=== PATIENT | female | born 1945 | race Caucasian/White ===

== ENCOUNTER → 2017-06-30 | Outpatient (CLI) | payer OTHER ==
[~2017-06-30] MED LIST: ACETAMINOPHEN325 M1 PO; AMIODARONE HCL200 MG PO; AMLODIPINE BESYL5 MG PO; ASPIR 8181 MG PO; ASPIRIN CHEW81 MG PO; CALTRATE 600 W1 EACH PO; CALTRATE-600 W1 EACH PO; CEFTIN250 MG; COUMADIN2.5 MG PO; COUMADIN5 MG PO; DIPHENOXYLATE-1 EACH PO; FAMOTIDINE20 MG PO; FUROSEMIDE40 MG PO; KEFLEX500 MG PO; LABETALOL HCL100 MG PO; LASIX40 MG PO; LEVOTHYROXINE88 MCG PO; LIDOCAINE HC28.35 GM TOP; LIDOCAINE-PRILO30 GM; LINZESS PO; LISINOPRIL2.5 MG PO; LOPRESSOR25 MG PO; METOPROLOL TART25 MG PO; METOPROLOL TART50 MG PO; NEXIUM40 MG PO; NORVASC5 MG PO; PARICALCITOL PO; PROCHLORPERAZINE5 MG PO; RENA-VITE RX T1 EACH PO; RENAGEL800 MG PO; RENVELA0.8 GM PO; SENNA-S TABLET1 EA PO; SENSIPAR30 MG PO; SODIUM BIC; SODIUM BIC PO; SODIUM BICARBO650 MG PO; SPIRIVA18 MCG INH; SYNTHROID100 MCG PO; SYNTHROID125 MCG PO; ULTRAM50 MG PO; VITAMIN D5000 UNIT PO; WARFARIN SODIUM5 MG PO; Z LABETALOL HCL PO; Z.0.ASPIRIN CHEW81 M; Z.0.IRON18 MG PO; Z.0.LASIX40 MG PO; Z.0.LEVOTHYROXINE125 PO; Z.0.PLAVIX75 MG PO; Z.0.RENVELA800 MG PO; Z.1.VITAMIN D400 UNI PO; ZOLOFT50 MG PO; [UNRECOGNIZED DRUG - OTHER] PO; [UNRECOGNIZED DRUG - OTHER] PO
[2017-06-30 15:49] LABS: ANION GAP 19.9 mmol/L (8-16); CALCIUM 10.2 mg/dL (8.4-10.2); CREATININE, SERUM 5.53 mg/dL (0.57-1.11); POTASSIUM 3.9 mmol/L (3.5-5.1)
[2017-06-30 15:56] LABS: BASOPHILS # (AUTO) 0.1 (0.0-0.1); BASOPHILS % 0.9 % (0.0-1.0); EOSINOPHILS # (AUTO) 0.4 (0.0-0.4); EOSINOPHILS % 4.3 % (0.0-6.0); HEMATOCRIT 30.7 % (34.2-44.1); HEMOGLOBIN 9.7 g/dL (12.0-16.0); LYMPHOCYTES # (AUTO) 0.5 (1.0-3.2); LYMPHOCYTES % 5.7 % (18.0-39.1); MEAN CORPUSCULAR HEMOGLOBIN 32.8 pg (28-32); MEAN CORPUSCULAR HGB CONC 31.6 g/dL (31-35); MEAN CORPUSCULAR VOLUME 103.7 fL (81-99); MONOCYTES # (AUTO) 1.2 (0.2-0.8); NEUTROPHILS % 73.4 % (38.7-80.0); PLATELET COUNT 221 x10e3/uL (140-360); RED BLOOD COUNT 2.96 x10e6/uL (3.6-5.1)
== END ==
LOC: NPA 10:00
PROVIDERS: ATTEND Internal Medicine Pulmonary Disease
DX: Z02.89 Encounter for other administrative examinations (principal)
CPT/HCPCS: 36415; 80048; 85025

== ENCOUNTER → 2017-08-27 | Day surgery (SDC) | payer MEDICARE, BC ==
[2017-08-26 14:25] LABS: BASOPHILS % 0.3 % (0.0-1.0); EOSINOPHILS # (AUTO) 0.1 (0.0-0.4); EOSINOPHILS % 1.3 % (0.0-6.0); HEMATOCRIT 29.6 % (34.2-44.1); HEMOGLOBIN 9.2 g/dL (12.0-16.0); LYMPHOCYTES # (AUTO) 0.3 (1.0-3.2); LYMPHOCYTES % 3.2 % (18.0-39.1); MEAN CORPUSCULAR HEMOGLOBIN 31.7 pg (28-32); MEAN CORPUSCULAR HGB CONC 31.1 g/dL (31-35); MEAN CORPUSCULAR VOLUME 102.1 fL (81-99); MONOCYTES % 11.9 % (4.4-11.3); NEUTROPHILS # (AUTO) 7.1 (2.1-6.9); PLATELET COUNT 185 x10e3/uL (140-360); RED CELL DISTRIBUTION WIDTH 18.3 % (11.7-14.4)
[2017-08-26 16:04] LABS: BAND NEUTROPHILS % (MANUAL) 2 %; EOSINOPHILS % (MANUAL) 1 % (0-7); LYMPHOCYTES % (MANUAL) 3 % (19-48); MONOCYTES % (MANUAL) 9 % (3.4-9.0); NEUTROPHILS % (MANUAL) 85 % (40-74)
[2017-08-26 16:06] LABS: ANISOCYTOSIS MODERATE; MICROCYTOSIS MODERATE; PLATELET ESTIMATE ADEQUATE; PLATELET MORPHOLOGY COMMENT FEW LARGE; POIKILOCYTOSIS SLIGHT; RBC MORPHOLOGY COMMENT ABNORMAL
[~2017-08-27] MED LIST changes: +ABILIFY5 MG PO; +ASPIRIN EC81 MG PO; +ATORVASTATIN CA10 MG PO; +BENZONATATE100 MG PO; +CEPHALEXIN250 MG PO; +IPRATROPIU0.2 MG/1 M NEB; +KEFLEX500 MG; +KETAMINE HCL INJ 50 MG/ML 10 ML VIAL ONE; +LIDOCAINE HCL 2% LOCAL INJ 5 ML SDV VIAL INJ ONE; +MELATONIN3 MG PO; +PANTOPRAZOLE SO40 MG PO; +PREDNISONE10 MG PO; +PROPOFOL IV EMULSION 10 MG/ML 50 ML VIAL ONE; +RENVELA0.8 GM; +SENNOSIDES8.6 MG; +SODIUM CHLORIDE 0.9% 500ML 500 ML ONE; +TYLENOL
--- OUTSIDE RECORDS SUMMARY | 2017-08-27 10:47 | XMS REPORT ---
Author Author [facility] Address Unknown Phone Unavailable Care Team Providers Care Watch Leader Name Role Phone FRANTZ LYLES Unavailable Unavailable ONEIL MCCAULEY Unavailable Unavailable BLAKE CALDERON Unavailable Unavailable JORGE NIETO Unavailable Unavailable NAIMA SORTO Unavailable Unavailable ARVIND AGARWAL Unavailable Unavailable SABINA TRAN Unavailable Unavailable Problems This patient has no known problems. Allergies, Adverse Reactions, Alerts This patient has no known allergies or adverse reactions. Medications This patient has no known medications. Results Test Description Test Time Test Comments Text Results Atomic Results Result Comments BASIC METABOLIC PANEL 2017-05-21 05:13:00 SODIUM (BEAKER) (test fcqx=126) 139 meq/L 136-145 POTASSIUM (BEAKER) (test zfor=680) 4.1 meq/L 3.5-5.1 CHLORIDE (BEAKER) (test mwnm=296) 102 meq/L 98-107 CO2 (BEAKER) (test qlsh=884) 27 meq/L 22-29 BLOOD UREA NITROGEN (BEAKER) (test mepw=160) 27 mg/dL 7-21 CREATININE (BEAKER) (test qhed=109) 3.52 mg/dL 0.57-1.25 GLUCOSE RANDOM (BEAKER) (test uenn=501) 96 mg/dL 70-105 CALCIUM (BEAKER) (test ryee=699) 8.0 mg/dL 8.4-10.2 EGFR (BEAKER) (test kaip=4694) 13 mL/min/1.73 sq m ESTIMATED GFR IS NOT ACCURATE CREATININE CLEARANCE IN PREDICTING GLOMERULAR FILTRATION RATE. ESTIMATED GFR IS NOT APPLICABLE FOR DIALYSIS PATIENTS. B-TYPE NATRIURETIC FACTOR (BNP)2017-05-21 05:05:00* Test Item Value Reference Range Comments B-TYPE NATRIURETIC PEPTIDE (BEAKER) (test svko=600) 4961 pg/mL 0-100 PROTHROMBIN TIME/[id number] 04:51:00* Test Item Value Reference Range Comments PROTIME (BEAKER) (test iqlo=249) 35.2 seconds 11.7-14.7 INR (BEAKER) (test vnto=271) 3.5 <=5.9 RECOMMENDED COUMADIN/WARFARIN INR THERAPY RANGESSTANDARD DOSE: 2.0 - 3.0 Includes: PROPHYLAXIS for venous thrombosis, systemic embolization; TREATMENT for venous thrombosis and/or pulmonary embolus.HIGH RISK: Target INR is 2.5-3.5 for patients with mechanical heart valves.CBC (HEMOGRAM ONLY)2017-05-21 04:48:00 * Test Item Value Reference Range Comments WHITE BLOOD CELL COUNT (BEAKER) (test evci=134) 6.5 K/ L 3.5-10.5 RED BLOOD CELL COUNT (BEAKER) (test awxi=233) 2.28 M/ L 3.93-5.22 HEMOGLOBIN (BEAKER) (test cyqc=619) 8.1 GM/DL 11.2-15.7 HEMATOCRIT (BEAKER) (test zpyg=249) 26.0 % 34.1-44.9 MEAN CORPUSCULAR VOLUME (BEAKER) (test jtwg=969) 114.0 fL 79.4-94.8 MEAN CORPUSCULAR HEMOGLOBIN (BEAKER) (test jzsh=556) 35.5 pg 25.6-32.2 MEAN CORPUSCULAR HEMOGLOBIN CONC (BEAKER) (test taqx=634) 31.2 GM/DL 32.2- 35.5 RED CELL DISTRIBUTION WIDTH (BEAKER) (test nguu=670) 18.2 % 11.7-14.4 PLATELET COUNT (BEAKER) (test ivek=036) 188 K/CU MM 150-450 MEAN PLATELET VOLUME (BEAKER) (test przm=544) 10.5 fL 9.4-12.3 NUCLEATED RED BLOOD CELLS (BEAKER) (test klxs=756) 0 /100 WBC 0-0 BASIC METABOLIC [id number] 06:53:00* Test Item Value Reference Range Comments SODIUM (BEAKER) (test eovl=318) 143 meq/L 136-145 POTASSIUM (BEAKER) (test lepd=415) 4.1 meq/L 3.5-5.1 CHLORIDE (BEAKER) (test llwn=687) 102 meq/L 98-107 CO2 (BEAKER) (test qzjt=609) 26 meq/L 22-29 BLOOD UREA NITROGEN (BEAKER) (test jqcl=242) 47 mg/dL 7-21 CREATININE (BEAKER) (test yjxv=284) 5.39 mg/dL 0.57-1.25 GLUCOSE RANDOM (BEAKER) (test efcg=153) 116 mg/dL 70-105 CALCIUM (BEAKER) (test hezq=126) 8.3 mg/dL 8.4-10.2 EGFR (BEAKER) (test hwmc=6319) 8 mL/min/1.73 sq m ESTIMATED GFR IS NOT ACCURATE CREATININE CLEARANCE IN PREDICTING GLOMERULAR FILTRATION RATE. ESTIMATED GFR IS NOT APPLICABLE FOR DIALYSIS PATIENTS. [id number] 06:52:00* Test Item Value Reference Range Comments PHOSPHORUS (BEAKER) (test ssyi=231) 4.8 mg/dL 2.3-4.7 [id number] 06:52:00* Test Item Value Reference Range Comments MAGNESIUM (BEAKER) (test bvmb=319) 1.7 mg/dL 1.6-2.6 CBC W/PLT COUNT & AUTO [id number] 06:06:00* Test Item Value Reference Range Comments WHITE BLOOD CELL COUNT (BEAKER) (test oret=276) 7.3 K/ L 3.5-10.5 RED BLOOD CELL COUNT (BEAKER) (test peas=038) 2.53 M/ L 3.93-5.22 HEMOGLOBIN (BEAKER) (test iwsz=027) 9.0 GM/DL 11.2-15.7 HEMATOCRIT (BEAKER) (test rxli=131) 28.3 % 34.1-44.9 MEAN CORPUSCULAR VOLUME (BEAKER) (test zeuk=172) 111.9 fL 79.4-94.8 MEAN CORPUSCULAR HEMOGLOBIN (BEAKER) (test tnid=807) 35.6 pg 25.6-32.2 MEAN CORPUSCULAR HEMOGLOBIN CONC (BEAKER) (test cjqa=228) 31.8 GM/DL 32.2- 35.5 RED CELL DISTRIBUTION WIDTH (BEAKER) (test hsis=179) 17.9 % 11.7-14.4 PLATELET COUNT (BEAKER) (test pbpr=398) 213 K/CU MM 150-450 MEAN PLATELET VOLUME (BEAKER) (test mheg=725) 10.9 fL 9.4-12.3 NUCLEATED RED BLOOD CELLS (BEAKER) (test oxet=097) 0 /100 WBC 0-0 NEUTROPHILS RELATIVE PERCENT (BEAKER) (test xwuu=728) 84 % LYMPHOCYTES RELATIVE PERCENT (BEAKER) (test mzgu=735) 3 % MONOCYTES RELATIVE PERCENT (BEAKER) (test eexa=655) 11 % EOSINOPHILS RELATIVE PERCENT (BEAKER) (test nqnj=898) 2 % BASOPHILS RELATIVE PERCENT (BEAKER) (test tseh=013) 1 % NEUTROPHILS ABSOLUTE COUNT (BEAKER) (test mzml=829) 6.16 K/ L 1.56-6.13 LYMPHOCYTES ABSOLUTE COUNT (BEAKER) (test zour=177) 0.20 K/ L 1.18-3.74 MONOCYTES ABSOLUTE COUNT (BEAKER) (test blix=863) 0.77 K/ L 0.24-0.36 EOSINOPHILS ABSOLUTE COUNT (BEAKER) (test huec=945) 0.13 K/ L 0.04-0.36 BASOPHILS ABSOLUTE COUNT (BEAKER) (test oudv=687) 0.04 K/ L 0.01-0.08 IMMATURE GRANULOCYTES-RELATIVE PERCENT (BEAKER) (test ewtf=6277) 0 % 0-1 PROTHROMBIN TIME/[id number] 05:47:00* Test Item Value Reference Range Comments PROTIME (BEAKER) (test hrwc=909) 46.0 seconds 11.7-14.7 INR (BEAKER) (test anol=337) 4.9 <=5.9 RECOMMENDED COUMADIN/WARFARIN INR THERAPY RANGESSTANDARD DOSE: 2.0 - 3.0 Includes: PROPHYLAXIS for venous thrombosis, systemic embolization; TREATMENT for venous thrombosis and/or pulmonary embolus.HIGH RISK: Target INR is 2.5-3.5 for patients with mechanical heart valves.CREATINE KINASE (CK), TOTAL AND [id number] 17:17:00* Test Item Value Reference Range Comments CREATINE KINASE TOTAL (BEAKER) (test jhpz=534) 172 U/L 29-200 CREATINE KINASE-MB (BEAKER) (test nlzx=882) 6.9 ng/mL 0.0-6.6 CREATINE KINASE-MB INDEX (BEAKER) (test udpc=545) 4.0 % CK-MB Reference Range:<6.7 Normal6.7-10.0 Borderline>10.0 AbnormalRAD , CHEST, 1 VIEW, NON [id number] 13:12:00Reason for exam:->DIARRHEAReason for exam:->SHORTNESS OF BREATHFINAL REPORT TECHNIQUE: Frontal chest radiograph dated 05/19/2017. CLINICAL HISTORY: Diarrhea, shortness of breath COMPARISON STUDY: Chest radiograph dated 05/05/2017 IMPRESSION:Postsurgical changes are seen in the right hemithorax. There is a moderate right pleural effusion with compressive atelectasis. Left lung is clear. No pneumothorax. Cardiomediastinal silhouette is normal in size. No pulmonary edema. No fracture. Signed: Marvin Pham MDReport Verified Date/ Time: 05/19/2017 13:12:02 Reading Location: [facility] Radiology Reading Room C METABOLIC [id number] 13:09:00* Test Item Value Reference Range Comments SODIUM (BEAKER) (test kjoq=338) 136 meq/L 136-145 POTASSIUM (BEAKER) (test zgnv=256) 6.5 meq/L 3.5-5.1 CHLORIDE (BEAKER) (test nhby=868) 97 meq/L 98-107 CO2 (BEAKER) (test wcvz=055) 18 meq/L 22-29 BLOOD UREA NITROGEN (BEAKER) (test ytrl=101) 124 mg/dL 7-21 CREATININE (BEAKER) (test fptf=804) 8.91 mg/dL 0.57-1.25 GLUCOSE RANDOM (BEAKER) (test hvvv=173) 83 mg/dL 70-105 CALCIUM (BEAKER) (test dqiv=554) 8.4 mg/dL 8.4-10.2 EGFR (BEAKER) (test svmy=6478) 4 mL/min/1.73 sq m ESTIMATED GFR IS NOT ACCURATE CREATININE CLEARANCE IN PREDICTING GLOMERULAR FILTRATION RATE. ESTIMATED GFR IS NOT APPLICABLE FOR DIALYSIS PATIENTS. CBC W/PLT COUNT & AUTO [id number] 12:32:00* Test Item Value Reference Range Comments WHITE BLOOD CELL COUNT (BEAKER) (test gfte=870) 6.3 K/ L 3.5-10.5 RED BLOOD CELL COUNT (BEAKER) (test wuvd=749) 2.79 M/ L 3.93-5.22 HEMOGLOBIN (BEAKER) (test mvte=355) 9.9 GM/DL 11.2-15.7 HEMATOCRIT (BEAKER) (test fyox=566) 31.1 % 34.1-44.9 MEAN CORPUSCULAR VOLUME (BEAKER) (test kiuz=141) 111.5 fL 79.4-94.8 MEAN CORPUSCULAR HEMOGLOBIN (BEAKER) (test hjgb=695) 35.5 pg 25.6-32.2 MEAN CORPUSCULAR HEMOGLOBIN CONC (BEAKER) (test obbn=293) 31.8 GM/DL 32.2- 35.5 RED CELL DISTRIBUTION WIDTH (BEAKER) (test pylu=360) 17.5 % 11.7-14.4 PLATELET COUNT (BEAKER) (test ujho=635) 237 K/CU MM 150-450 MEAN PLATELET VOLUME (BEAKER) (test ltbe=496) 11.2 fL 9.4-12.3 NUCLEATED RED BLOOD CELLS (BEAKER) (test hqzq=957) 0 /100 WBC 0-0 NEUTROPHILS RELATIVE PERCENT (BEAKER) (test fhwq=572) 77 % LYMPHOCYTES RELATIVE PERCENT (BEAKER) (test kmvg=776) 7 % MONOCYTES RELATIVE PERCENT (BEAKER) (test tdst=860) 12 % EOSINOPHILS RELATIVE PERCENT (BEAKER) (test iirk=220) 2 % BASOPHILS RELATIVE PERCENT (BEAKER) (test vfaf=906) 1 % NEUTROPHILS ABSOLUTE COUNT (BEAKER) (test kwcq=014) 4.84 K/ L 1.56-6.13 LYMPHOCYTES ABSOLUTE COUNT (BEAKER) (test xsqq=527) 0.45 K/ L 1.18-3.74 MONOCYTES ABSOLUTE COUNT (BEAKER) (test cmzm=864) 0.78 K/ L 0.24-0.36 EOSINOPHILS ABSOLUTE COUNT (BEAKER) (test igaw=107) 0.13 K/ L 0.04-0.36 BASOPHILS ABSOLUTE COUNT (BEAKER) (test uioy=969) 0.07 K/ L 0.01-0.08 IMMATURE GRANULOCYTES-RELATIVE PERCENT (BEAKER) (test jsbk=3045) 1 % 0-1 B-TYPE NATRIURETIC FACTOR (BNP)2017-05-19 12:32:00* Test Item Value Reference Range Comments B-TYPE NATRIURETIC PEPTIDE (BEAKER) (test uhlp=104) 3657 pg/mL 0-100 TROPONIN [id number] 12:30:00* Test Item Value Reference Range Comments TROPONIN I (BEAKER) (test xzfb=197) 0.08 ng/mL 0.00-0.03 Troponin I (TnI) levels must be interpreted in the context of the presenting symptoms and the clinical findings. Elevated TnI levels indicate myocardial damage, but are not specific for ischemic heart disease. Elevated TnI levels are seen in patients with other cardiac conditions (including myocarditis and congestive heart failure), and slight TnI elevations occur in patients with other conditions, including sepsis, renal failure, acidosis, acute neurological disease, and persistent tachyarrhythmia.[id number] 12:28:00* Test Item Value Reference Range Comments MAGNESIUM (BEAKER) (test oivv=293) 2.1 mg/dL 1.6-2.6 B-TYPE NATRIURETIC FACTOR (BNP)2017-05-14 14:04:00* Test Item Value Reference Range Comments B-TYPE NATRIURETIC PEPTIDE (BEAKER) (test taya=593) 7156 pg/mL 0-100 BASIC METABOLIC [id number] 13:53:00* Test Item Value Reference Range Comments SODIUM (BEAKER) (test qsrw=937) 142 meq/L 136-145 POTASSIUM (BEAKER) (test trht=102) 4.8 meq/L 3.5-5.1 CHLORIDE (BEAKER) (test qvpv=237) 97 meq/L 98-107 CO2 (BEAKER) (test khkk=889) 31 meq/L 22-29 BLOOD UREA NITROGEN (BEAKER) (test mfic=187) 48 mg/dL 7-21 CREATININE (BEAKER) (test hped=674) 5.07 mg/dL 0.57-1.25 GLUCOSE RANDOM (BEAKER) (test rfxw=099) 88 mg/dL 70-105 CALCIUM (BEAKER) (test tqlu=799) 8.9 mg/dL 8.4-10.2 EGFR (BEAKER) (test szcv=6752) 8 mL/min/1.73 sq m ESTIMATED GFR IS NOT ACCURATE CREATININE CLEARANCE IN PREDICTING GLOMERULAR FILTRATION RATE. ESTIMATED GFR IS NOT APPLICABLE FOR DIALYSIS PATIENTS. PROTHROMBIN TIME/[id number] 13:41:00* Test Item Value Reference Range Comments PROTIME (BEAKER) (test gibe=113) 23.0 seconds 11.7-14.7 INR (BEAKER) (test qwsa=165) 2.0 <=5.9 RECOMMENDED COUMADIN/WARFARIN INR THERAPY RANGESSTANDARD DOSE: 2.0 - 3.0 Includes: PROPHYLAXIS for venous thrombosis, systemic embolization; TREATMENT for venous thrombosis and/or pulmonary embolus.HIGH RISK: Target INR is 2.5-3.5 for patients with mechanical heart valves.[id number] 13:39:00* Test Item Value Reference Range Comments MAGNESIUM (BEAKER) (test auah=234) 1.9 mg/dL 1.6-2.6 PROTHROMBIN TIME/[id number] 06:04:00* Test Item Value Reference Range Comments PROTIME (BEAKER) (test nmox=814) 15.6 seconds 11.7-14.7 INR (BEAKER) (test gpme=265) 1.3 <=5.9 RECOMMENDED COUMADIN/WARFARIN INR THERAPY RANGESSTANDARD DOSE: 2.0 - 3.0 Includes: PROPHYLAXIS for venous thrombosis, systemic embolization; TREATMENT for venous thrombosis and/or pulmonary embolus.HIGH RISK: Target INR is 2.5-3.5 for patients with mechanical heart valves.While on warfarin.POCT-GLUCOSE [id number] 21:15:00* Test Item Value Reference Range Comments POC-GLUCOSE METER (BEAKER) (test eodh=2506) 116 mg/dL 70-[address] [facility] [address] [facility] [address] PROTHROMBIN TIME/[id number] 05:44:00* Test Item Value Reference Range Comments PROTIME (BEAKER) (test rjuj=004) 14.9 seconds 11.7-14.7 INR (BEAKER) (test vqau=173) 1.2 <=5.9 RECOMMENDED COUMADIN/WARFARIN INR THERAPY RANGESSTANDARD DOSE: 2.0 - 3.0 Includes: PROPHYLAXIS for venous thrombosis, systemic embolization; TREATMENT for venous thrombosis and/or pulmonary embolus.HIGH RISK: Target INR is 2.5-3.5 for patients with mechanical heart valves.While on warfarin.U/S, [id number] 15:52:00Reason for exam:->right moderate pleural effusion/sob. needs IR/USG guided thoracocentesisFINAL REPORT Procedure: Ultrasound-guided right thoracentesis, 05/05/2017 HISTORY: Right pleural effusion Anesthesia: 1% lidocaine Modality: Ultrasound Approach: Right posterior chest TECHNIQUE: After obtaining written informed consent this procedure was performed without untoward effect. Ultrasound was used to scan the right chest, posteriorly. A site of maximum fluid collection was identified in the the skin overlying this site was prepped and anesthetized. A 4 Tunisian needle/catheter was inserted into the pleural space and 1.3 L of yellow fluid were removed. An x-ray was ordered. Conclusion: Ultrasound-guided right thoracentesis. Signed: Geronimo Arrieta Verified Date/Time: 05/05/2017 15 :52:47 Reading Location: [address] Ultrasound Reading Room , CHEST , 1 VIEW, NON [id number] 15:47:00Reason for exam:->Right Thoracentesis - pt in Ultrasound Should this be performed at the bedside?->YesFINAL REPORT Portable chest 05/05/2017 Since 05/03/2017, the right pleural effusion has resolved, status post thoracentesis. There is no pneumothorax. Minimal linear opacities remain in the right lung base consistent with atelectasis. The heart remains enlarged. There mild pulmonary vascular congestive changes. Aortic valvular device is suggested. There surgical clips in both axillary regions that are unchanged. No definite osseous abnormalities are defined. Signed: Geronimo Arrieta Verified Date/Time: 05/05/2017 15: 47:12 Reading Location: [address] Ultrasound Reading Room C METABOLIC [id number] 08:23:00* Test Item Value Reference Range Comments SODIUM (BEAKER) (test tdxe=894) 140 meq/L 136-145 POTASSIUM (BEAKER) (test euzp=866) 4.4 meq/L 3.5-5.1 CHLORIDE (BEAKER) (test raky=290) 102 meq/L 98-107 CO2 (BEAKER) (test jbko=571) 24 meq/L 22-29 BLOOD UREA NITROGEN (BEAKER) (test nmxy=163) 41 mg/dL 7-21 CREATININE (BEAKER) (test wdxu=247) 4.92 mg/dL 0.57-1.25 GLUCOSE RANDOM (BEAKER) (test xrug=186) 96 mg/dL 70-105 CALCIUM (BEAKER) (test xhkt=347) 8.3 mg/dL 8.4-10.2 EGFR (BEAKER) (test lriz=5788) 9 mL/min/1.73 sq m ESTIMATED GFR IS NOT ACCURATE CREATININE CLEARANCE IN PREDICTING GLOMERULAR FILTRATION RATE. ESTIMATED GFR IS NOT APPLICABLE FOR DIALYSIS PATIENTS. CBC W/PLT COUNT & AUTO [id number] 05:48:00* Test Item Value Reference Range Comments WHITE BLOOD CELL COUNT (BEAKER) (test fcet=411) 6.4 K/ L 3.5-10.5 RED BLOOD CELL COUNT (BEAKER) (test qrok=883) 3.02 M/ L 3.93-5.22 HEMOGLOBIN (BEAKER) (test noat=170) 10.8 GM/DL 11.2-15.7 HEMATOCRIT (BEAKER) (test gmfn=047) 34.0 % 34.1-44.9 MEAN CORPUSCULAR VOLUME (BEAKER) (test gwov=216) 112.6 fL 79.4-94.8 MEAN CORPUSCULAR HEMOGLOBIN (BEAKER) (test imsr=068) 35.8 pg 25.6-32.2 MEAN CORPUSCULAR HEMOGLOBIN CONC (BEAKER) (test egpb=637) 31.8 GM/DL 32.2- 35.5 RED CELL DISTRIBUTION WIDTH (BEAKER) (test wrwz=444) 19.5 % 11.7-14.4 PLATELET COUNT (BEAKER) (test upza=462) 157 K/CU MM 150-450 MEAN PLATELET VOLUME (BEAKER) (test ynmj=263) 11.2 fL 9.4-12.3 NUCLEATED RED BLOOD CELLS (BEAKER) (test shrw=688) 0 /100 WBC 0-0 NEUTROPHILS RELATIVE PERCENT (BEAKER) (test hoot=607) 74 % LYMPHOCYTES RELATIVE PERCENT (BEAKER) (test xeux=802) 6 % MONOCYTES RELATIVE PERCENT (BEAKER) (test ltif=809) 17 % EOSINOPHILS RELATIVE PERCENT (BEAKER) (test gdfu=599) 2 % BASOPHILS RELATIVE PERCENT (BEAKER) (test jcrc=684) 1 % NEUTROPHILS ABSOLUTE COUNT (BEAKER) (test awdz=247) 4.76 K/ L 1.56-6.13 LYMPHOCYTES ABSOLUTE COUNT (BEAKER) (test ryjz=652) 0.35 K/ L 1.18-3.74 MONOCYTES ABSOLUTE COUNT (BEAKER) (test qaiq=671) 1.06 K/ L 0.24-0.36 EOSINOPHILS ABSOLUTE COUNT (BEAKER) (test ogik=589) 0.12 K/ L 0.04-0.36 BASOPHILS ABSOLUTE COUNT (BEAKER) (test ugcq=371) 0.08 K/ L 0.01-0.08 IMMATURE GRANULOCYTES-RELATIVE PERCENT (BEAKER) (test iwka=0012) 1 % 0-1 PT/[id number] 05:46:00* Test Item Value Reference Range Comments PROTIME (BEAKER) (test lnmq=818) 14.8 seconds 11.7-14.7 INR (BEAKER) (test qgrk=837) 1.2 <=5.9 PARTIAL THROMBOPLASTIN TIME (BEAKER) (test hfeh=701) 35.6 seconds 22.5-36.0 RECOMMENDED COUMADIN/WARFARIN INR THERAPY RANGESSTANDARD DOSE: 2.0 - 3.0 Includes: PROPHYLAXIS for venous thrombosis, systemic embolization; TREATMENT for venous thrombosis and/or pulmonary embolus.HIGH RISK: Target INR is 2.5-3.5 for patients with mechanical heart valves.RAD, ABDOMEN/KUB, 1 VIEW [id number] 21:02:00Reason for exam:->abdominal painFINAL REPORT RAD , ABDOMEN/KUB, 1 VIEW AP CLINICAL INDICATION: abdominal pain COMPARISON: None TECHNIQUE: Single, frontal radiograph of the abdomen. FINDINGS: The bowel gas pattern is nonspecific, but nonobstructive. No soft tissue density is identified. There is a large fecal burden in the colon. Atherosclerotic calcifications are present in the regional vasculature. The regional skeleton is intact. IMPRESSION: Nonspecific, nonobstructive bowel gas pattern. Large stool burden may reflect constipation. Signed: JR Cuevas Robert MDReport Verified Date/Time: 05/04/2017 21:02:19 Reading Location: [address] Reading Room OMYCIN LEVEL, [id number] 07:16:00 * Test Item Value Reference Range Comments VANCOMYCIN TROUGH (BEAKER) (test dqxo=823) 24.1 ug/mL 10.0-20.0 BASIC METABOLIC [id number] 07:05:00* Test Item Value Reference Range Comments SODIUM (BEAKER) (test iuhs=541) 138 meq/L 136-145 POTASSIUM (BEAKER) (test xkck=550) 5.1 meq/L 3.5-5.1 CHLORIDE (BEAKER) (test lvqu=036) 98 meq/L 98-107 CO2 (BEAKER) (test lytk=325) 22 meq/L 22-29 BLOOD UREA NITROGEN (BEAKER) (test hooo=511) 65 mg/dL 7-21 CREATININE (BEAKER) (test dwqt=994) 6.89 mg/dL 0.57-1.25 GLUCOSE RANDOM (BEAKER) (test twnb=620) 87 mg/dL 70-105 CALCIUM (BEAKER) (test tmdr=720) 8.1 mg/dL 8.4-10.2 EGFR (BEAKER) (test pfgq=4236) 6 mL/min/1.73 sq m ESTIMATED GFR IS NOT ACCURATE CREATININE CLEARANCE IN PREDICTING GLOMERULAR FILTRATION RATE. ESTIMATED GFR IS NOT APPLICABLE FOR DIALYSIS PATIENTS. CBC W/PLT COUNT & AUTO [id number] 06:17:00* Test Item Value Reference Range Comments WHITE BLOOD CELL COUNT (BEAKER) (test jszg=434) 5.6 K/ L 3.5-10.5 RED BLOOD CELL COUNT (BEAKER) (test brpt=864) 3.26 M/ L 3.93-5.22 HEMOGLOBIN (BEAKER) (test leet=235) 11.6 GM/DL 11.2-15.7 HEMATOCRIT (BEAKER) (test runo=178) 36.2 % 34.1-44.9 MEAN CORPUSCULAR VOLUME (BEAKER) (test avnb=310) 111.0 fL 79.4-94.8 MEAN CORPUSCULAR HEMOGLOBIN (BEAKER) (test gsid=422) 35.6 pg 25.6-32.2 MEAN CORPUSCULAR HEMOGLOBIN CONC (BEAKER) (test bfgv=889) 32.0 GM/DL 32.2- 35.5 RED CELL DISTRIBUTION WIDTH (BEAKER) (test ksmo=442) 19.0 % 11.7-14.4 PLATELET COUNT (BEAKER) (test wsxs=247) 169 K/CU MM 150-450 MEAN PLATELET VOLUME (BEAKER) (test jjrx=793) 11.4 fL 9.4-12.3 NUCLEATED RED BLOOD CELLS (BEAKER) (test rrzp=828) 0 /100 WBC 0-0 NEUTROPHILS RELATIVE PERCENT (BEAKER) (test ahps=877) 75 % LYMPHOCYTES RELATIVE PERCENT (BEAKER) (test hzvy=398) 6 % MONOCYTES RELATIVE PERCENT (BEAKER) (test fxlg=786) 15 % EOSINOPHILS RELATIVE PERCENT (BEAKER) (test cauj=257) 2 % BASOPHILS RELATIVE PERCENT (BEAKER) (test iuss=927) 2 % NEUTROPHILS ABSOLUTE COUNT (BEAKER) (test xcdi=751) 4.22 K/ L 1.56-6.13 LYMPHOCYTES ABSOLUTE COUNT (BEAKER) (test jycs=610) 0.32 K/ L 1.18-3.74 MONOCYTES ABSOLUTE COUNT (BEAKER) (test goeu=686) 0.83 K/ L 0.24-0.36 EOSINOPHILS ABSOLUTE COUNT (BEAKER) (test qtry=669) 0.12 K/ L 0.04-0.36 BASOPHILS ABSOLUTE COUNT (BEAKER) (test knpw=442) 0.11 K/ L 0.01-0.08 IMMATURE GRANULOCYTES-RELATIVE PERCENT (BEAKER) (test sgbx=7337) 1 % 0-1 RAD, CHEST, 1 VIEW, NON [id number] 15:33:00Reason for exam:->abnormal cxr followupShould this be performed at the bedside?->YesFINAL REPORT Chest dated 05/03/2017 COMPARISON: May 01, 2017 Clinical Information: abnormal cxr followup Comment: Heart is enlarged. Pulmonary vasculature is indistinct. Interstitial disease is seen bilaterally suggestive of vascular congestion slightly worse as compared to the prior study. There is moderate right pleural effusion with right lower lobe subsegmental atelectasis. Surgical clips are seen in the left axilla. IMPRESSION: Cardiomegaly with vascular congestion and right pleural effusion. Signed: Abbi Bhardwajeport Verified Date/Time: 05/03/2017 15:33:14 Reading Location: [place] [id number] Body Reading Room 03: 33 PM URINALYSIS W/ [id number] 07:58:00* Test Item Value Reference Range Comments COLOR (BEAKER) (test uqpc=283) Yellow CLARITY (BEAKER) (test fukc=061) Hazy SPECIFIC GRAVITY UA (BEAKER) (test bezh=216) 1.013 1.001-1.035 PH UA (BEAKER) (test zakw=780) 6.5 5.0-8.0 PROTEIN UA (BEAKER) (test tdvt=339) 300 mg/dL Negative GLUCOSE UA (BEAKER) (test trhq=474) 50 mg/dL Negative KETONES UA (BEAKER) (test dyuc=055) Negative Negative BILIRUBIN UA (BEAKER) (test vkoh=991) Negative Negative BLOOD UA (BEAKER) (test vsbl=229) Small Negative NITRITE UA (BEAKER) (test ebem=179) Negative Negative LEUKOCYTE ESTERASE UA (BEAKER) (test pafa=191) Trace Negative UROBILINOGEN UA (BEAKER) (test ylww=147) 0.2 mg/dL 0.2-1.0 RBC UA (BEAKER) (test syse=885) 1 /HPF WBC UA (BEAKER) (test mnvi=884) 13 /HPF SQUAMOUS EPITHELIAL (BEAKER) (test uafn=126) 12 /HPF SOURCE(BEAKER) (test xpki=5538) Urine, Voided TSH/FREE T4 IF [id number] 11:16:00* Test Item Value Reference Range Comments THYROID STIMULATING HORMONE (BEAKER) (test scgf=514) 131.41 uIU/mL 0.35-4.94 HEMOGLOBIN [id number] 11:13:00* Test Item Value Reference Range Comments HEMOGLOBIN A1C (BEAKER) (test djek=132) 5.0 % 4.3-6.1 T4, [id number] 10:29:00* Test Item Value Reference Range Comments FREE T4 (BEAKER) (test rvyf=353) 0.87 ng/dL 0.70-1.48 BASIC METABOLIC [id number] 08:09:00* Test Item Value Reference Range Comments SODIUM (BEAKER) (test todn=216) 140 meq/L 136-145 POTASSIUM (BEAKER) (test fkiy=957) 4.3 meq/L 3.5-5.1 Specimen slightly hemolyzed CHLORIDE (BEAKER) (test dtbo=211) 99 meq/L 98-107 CO2 (BEAKER) (test phjy=402) 27 meq/L 22-29 BLOOD UREA NITROGEN (BEAKER) (test zusk=156) 37 mg/dL 7-21 CREATININE (BEAKER) (test ogue=904) 4.79 mg/dL 0.57-1.25 Specimen slightly hemolyzed GLUCOSE RANDOM (BEAKER) (test eart=728) 90 mg/dL 70-105 CALCIUM (BEAKER) (test nevk=768) 8.7 mg/dL 8.4-10.2 EGFR (BEAKER) (test kdos=0858) 9 mL/min/1.73 sq m ESTIMATED GFR IS NOT ACCURATE CREATININE CLEARANCE IN PREDICTING GLOMERULAR FILTRATION RATE. ESTIMATED GFR IS NOT APPLICABLE FOR DIALYSIS PATIENTS. [id number] 07:59:00* Test Item Value Reference Range Comments MAGNESIUM (BEAKER) (test gbbq=376) 2.0 mg/dL 1.6-2.6 Specimen slightly hemolyzed LIPID [id number] 07:59:00* Test Item Value Reference Range Comments TRIGLYCERIDES (BEAKER) (test yide=988) 60 mg/dL Specimen slightly hemolyzed CHOLESTEROL (BEAKER) (test gwxf=686) 148 mg/dL Specimen slightly hemolyzed HDL CHOLESTEROL (BEAKER) (test nqjy=496) 74 mg/dL LDL CHOLESTEROL CALCULATED (BEAKER) (test rpgr=863) 62 mg/dL Triglyceride Reference Range: Low Risk <150 Borderline 150-199 High Risk 200-499 Very High Risk >=500Cholesterol Reference Range: Low Risk <200 Borderline 200-239 High Risk >240HDL Cholesterol Reference Range: Low Risk >=60 High Risk <40LDL Cholesterol Reference Range: Optimal <100 Near Optimal 100-129 Borderline 130-159 High 160-189 Very High >=190 CBC W/ PLT COUNT & AUTO [id number] 07:38:00* Test Item Value Reference Range Comments WHITE BLOOD CELL COUNT (BEAKER) (test omnd=010) 5.5 K/ L 3.5-10.5 RED BLOOD CELL COUNT (BEAKER) (test ttxr=522) 3.38 M/ L 3.93-5.22 HEMOGLOBIN (BEAKER) (test ctou=963) 11.9 GM/DL 11.2-15.7 HEMATOCRIT (BEAKER) (test mnev=955) 37.1 % 34.1-44.9 MEAN CORPUSCULAR VOLUME (BEAKER) (test dfqx=957) 109.8 fL 79.4-94.8 MEAN CORPUSCULAR HEMOGLOBIN (BEAKER) (test eiua=203) 35.2 pg 25.6-32.2 MEAN CORPUSCULAR HEMOGLOBIN CONC (BEAKER) (test krsl=368) 32.1 GM/DL 32.2- 35.5 RED CELL DISTRIBUTION WIDTH (BEAKER) (test abop=899) 19.7 % 11.7-14.4 PLATELET COUNT (BEAKER) (test ivcn=717) 154 K/CU MM 150-450 MEAN PLATELET VOLUME (BEAKER) (test jpzc=383) 10.9 fL 9.4-12.3 NUCLEATED RED BLOOD CELLS (BEAKER) (test huwo=550) 0 /100 WBC 0-0 NEUTROPHILS RELATIVE PERCENT (BEAKER) (test vlfi=954) 73 % LYMPHOCYTES RELATIVE PERCENT (BEAKER) (test niym=828) 6 % MONOCYTES RELATIVE PERCENT (BEAKER) (test otgw=136) 17 % EOSINOPHILS RELATIVE PERCENT (BEAKER) (test vlys=076) 3 % BASOPHILS RELATIVE PERCENT (BEAKER) (test xxbz=656) 1 % NEUTROPHILS ABSOLUTE COUNT (BEAKER) (test pjhr=756) 4.02 K/ L 1.56-6.13 LYMPHOCYTES ABSOLUTE COUNT (BEAKER) (test msym=279) 0.32 K/ L 1.18-3.74 MONOCYTES ABSOLUTE COUNT (BEAKER) (test bswy=134) 0.94 K/ L 0.24-0.36 EOSINOPHILS ABSOLUTE COUNT (BEAKER) (test isct=336) 0.14 K/ L 0.04-0.36 BASOPHILS ABSOLUTE COUNT (BEAKER) (test lbeq=664) 0.07 K/ L 0.01-0.08 IMMATURE GRANULOCYTES-RELATIVE PERCENT (BEAKER) (test wzgh=8341) 1 % 0-1 PROTHROMBIN TIME/[id number] 06:56:00* Test Item Value Reference Range Comments PROTIME (BEAKER) (test ennh=300) 14.8 seconds 11.7-14.7 INR (BEAKER) (test tsio=941) 1.2 <=5.9 RECOMMENDED COUMADIN/WARFARIN INR THERAPY RANGESSTANDARD DOSE: 2.0 - 3.0 Includes: PROPHYLAXIS for venous thrombosis, systemic embolization; TREATMENT for venous thrombosis and/or pulmonary embolus.HIGH RISK: Target INR is 2.5-3.5 for patients with mechanical heart valves.TROPONIN [id number] 18:56:00* Test Item Value Reference Range Comments TROPONIN I (BEAKER) (test ogih=001) 0.10 ng/mL 0.00-0.03 Troponin I (TnI) levels must be interpreted in the context of the presenting symptoms and the clinical findings. Elevated TnI levels indicate myocardial damage, but are not specific for ischemic heart disease. Elevated TnI levels are seen in patients with other cardiac conditions (including myocarditis and congestive heart failure), and slight TnI elevations occur in patients with other conditions, including sepsis, renal failure, acidosis, acute neurological disease, and persistent tachyarrhythmia.HEPATITIS B SURFACE [id number] 13 :55:00* Test Item Value Reference Range Comments HEPATITIS B SURFACE ANTIGEN (2) (ARIE) (test ntex=2183) Nonreactive Nonreactive CREATINE KINASE (CK), TOTAL AND [id number] 13:47:00* Test Item Value Reference Range Comments CREATINE KINASE TOTAL (BEAKER) (test hiqm=031) 143 U/L 29-200 CREATINE KINASE-MB (BEAKER) (test aybx=805) 3.8 ng/mL 0.0-6.6 CREATINE KINASE-MB INDEX (BEAKER) (test bjgm=502) 2.7 % CK-MB Reference Range:<6.7 Normal6.7-10.0 Borderline>10.0 AbnormalTROPONIN [id number] 13:47:00* Test Item Value Reference Range Comments TROPONIN I (BEAKER) (test fgne=994) 0.08 ng/mL 0.00-0.03 Troponin I (TnI) levels must be interpreted in the context of the presenting symptoms and the clinical findings. Elevated TnI levels indicate myocardial damage, but are not specific for ischemic heart disease. Elevated TnI levels are seen in patients with other cardiac conditions (including myocarditis and congestive heart failure), and slight TnI elevations occur in patients with other conditions, including sepsis, renal failure, acidosis, acute neurological disease, and persistent tachyarrhythmia.PROTHROMBIN TIME/[id number] 13:35:00 * Test Item Value Reference Range Comments PROTIME (BEAKER) (test rvqq=939) 16.7 seconds 11.7-14.7 INR (BEAKER) (test ybia=785) 1.4 <=5.9 RECOMMENDED COUMADIN/WARFARIN INR THERAPY RANGESSTANDARD DOSE: 2.0 - 3.0 Includes: PROPHYLAXIS for venous thrombosis, systemic embolization; TREATMENT for venous thrombosis and/or pulmonary embolus.HIGH RISK: Target INR is 2.5-3.5 for patients with mechanical heart valves.B-TYPE NATRIURETIC FACTOR (BNP)2017-04 09:17:00* Test Item Value Reference Range Comments B-TYPE NATRIURETIC PEPTIDE (BEAKER) (test bntm=558) 4960 pg/mL 0-100 BASIC METABOLIC [id number] 09:16:00* Test Item Value Reference Range Comments SODIUM (BEAKER) (test cuup=445) 138 meq/L 136-145 POTASSIUM (BEAKER) (test lqsv=023) 5.7 meq/L 3.5-5.1 Specimen slightly hemolyzed CHLORIDE (BEAKER) (test smkl=353) 97 meq/L 98-107 CO2 (BEAKER) (test pmfn=579) 23 meq/L 22-29 BLOOD UREA NITROGEN (BEAKER) (test yiqx=739) 76 mg/dL 7-21 CREATININE (BEAKER) (test bnac=775) 7.30 mg/dL 0.57-1.25 Specimen slightly hemolyzed GLUCOSE RANDOM (BEAKER) (test bjki=594) 88 mg/dL 70-105 CALCIUM (BEAKER) (test xhic=997) 7.8 mg/dL 8.4-10.2 EGFR (BEAKER) (test wtvz=5244) 6 mL/min/1.73 sq m ESTIMATED GFR IS NOT ACCURATE CREATININE CLEARANCE IN PREDICTING GLOMERULAR FILTRATION RATE. ESTIMATED GFR IS NOT APPLICABLE FOR DIALYSIS PATIENTS. CREATINE KINASE (CK), TOTAL AND [id number] 09:10:00* Test Item Value Reference Range Comments CREATINE KINASE TOTAL (BEAKER) (test lrjs=663) 160 U/L 29-200 CREATINE KINASE-MB (BEAKER) (test mgjj=654) 4.9 ng/mL 0.0-6.6 CREATINE KINASE-MB INDEX (BEAKER) (test iuqo=117) 3.1 % CK-MB Reference Range:<6.7 Normal6.7-10.0 Borderline>10.0 AbnormalTROPONIN [id number] 09:10:00* Test Item Value Reference Range Comments TROPONIN I (BEAKER) (test opyg=706) 0.11 ng/mL 0.00-0.03 Troponin I (TnI) levels must be interpreted in the context of the presenting symptoms and the clinical findings. Elevated TnI levels indicate myocardial damage, but are not specific for ischemic heart disease. Elevated TnI levels are seen in patients with other cardiac conditions (including myocarditis and congestive heart failure), and slight TnI elevations occur in patients with other conditions, including sepsis, renal failure, acidosis, acute neurological disease, and persistent tachyarrhythmia.CBC W/PLT COUNT & AUTO [id number] 08:05:00* Test Item Value Reference Range Comments WHITE BLOOD CELL COUNT (BEAKER) (test ovfi=188) 6.1 K/ L 3.5-10.5 RED BLOOD CELL COUNT (BEAKER) (test wxca=682) 3.22 M/ L 3.93-5.22 HEMOGLOBIN (BEAKER) (test jfxp=147) 11.5 GM/DL 11.2-15.7 HEMATOCRIT (BEAKER) (test fxpq=690) 35.0 % 34.1-44.9 MEAN CORPUSCULAR VOLUME (BEAKER) (test vsfc=860) 108.7 fL 79.4-94.8 MEAN CORPUSCULAR HEMOGLOBIN (BEAKER) (test ibbw=525) 35.7 pg 25.6-32.2 MEAN CORPUSCULAR HEMOGLOBIN CONC (BEAKER) (test zgij=559) 32.9 GM/DL 32.2- 35.5 RED CELL DISTRIBUTION WIDTH (BEAKER) (test rxke=729) 19.9 % 11.7-14.4 PLATELET COUNT (BEAKER) (test ootu=450) 174 K/CU MM 150-450 MEAN PLATELET VOLUME (BEAKER) (test qgwn=812) 11.9 fL 9.4-12.3 NUCLEATED RED BLOOD CELLS (BEAKER) (test frhf=091) 0 /100 WBC 0-0 NEUTROPHILS RELATIVE PERCENT (BEAKER) (test slxg=173) 76 % LYMPHOCYTES RELATIVE PERCENT (BEAKER) (test ageo=435) 6 % MONOCYTES RELATIVE PERCENT (BEAKER) (test cmti=398) 15 % EOSINOPHILS RELATIVE PERCENT (BEAKER) (test ypwh=275) 2 % BASOPHILS RELATIVE PERCENT (BEAKER) (test qmgm=597) 1 % NEUTROPHILS ABSOLUTE COUNT (BEAKER) (test bhiw=708) 4.66 K/ L 1.56-6.13 LYMPHOCYTES ABSOLUTE COUNT (BEAKER) (test xvmu=499) 0.34 K/ L 1.18-3.74 MONOCYTES ABSOLUTE COUNT (BEAKER) (test sacg=311) 0.92 K/ L 0.24-0.36 EOSINOPHILS ABSOLUTE COUNT (BEAKER) (test alcf=879) 0.12 K/ L 0.04-0.36 BASOPHILS ABSOLUTE COUNT (BEAKER) (test crrl=856) 0.06 K/ L 0.01-0.08 IMMATURE GRANULOCYTES-RELATIVE PERCENT (BEAKER) (test hsgp=6795) 1 % 0-1 RAD, CHEST, 2 [id number] 08:01:00Reason for exam:->SHORTNESS OF BREATHShould this be performed at the bedside?->NoFINAL REPORT Chest 2 views 05/01/2017 8:01 AM CLINICAL HISTORY: SHORTNESS OF BREATH COMPARISON: None available IMPRESSION: There is a small volume right pleural effusion. Opacity in the right middle and lower lobes may reflect atelectasis or pneumonia. The left lung is clear. The cardiac silhouette is enlarged but the central pulmonary vasculature is not engorged. A prosthetic cardiac valve is present. There is a mild chronic appearing compression fracture in the midthoracic spine. Signed: Davie Cheneport Verified Date/Time: 2016 08:01:55 Reading Location: [facility] [id number] Consult Reading Room - GLUCOSE [id number] 17:26:00* Test Item Value Reference Range Comments POC-GLUCOSE METER (BEAKER) (test amwr=2012) 96 mg/dL 70-110 TESTED AT [place] [id number] [facility] [address] POCT-GLUCOSE [id number] 12:08:00* Test Item Value Reference Range Comments POC-GLUCOSE METER (BEAKER) (test cwwj=8446) 159 mg/dL 70-110 TESTED AT [address] [address] POCT-GLUCOSE [id number] 08:40:00* Test Item Value Reference Range Comments POC-GLUCOSE METER (BEAKER) (test seba=0804) 104 mg/dL 70-110 TESTED AT [address] [address] CBC W/PLT COUNT & AUTO [id number] 06:28:00* Test Item Value Reference Range Comments WHITE BLOOD CELL COUNT (BEAKER) (test dskh=054) 7.5 K/ L 3.5-10.5 RED BLOOD CELL COUNT (BEAKER) (test itio=673) 2.95 M/ L 3.93-5.22 HEMOGLOBIN (BEAKER) (test hsfw=535) 9.6 GM/DL 11.2-15.7 HEMATOCRIT (BEAKER) (test oqvo=950) 30.7 % 34.1-44.9 MEAN CORPUSCULAR VOLUME (BEAKER) (test qswp=233) 104.1 fL 79.4-94.8 MEAN CORPUSCULAR HEMOGLOBIN (BEAKER) (test svau=347) 32.5 pg 25.6-32.2 MEAN CORPUSCULAR HEMOGLOBIN CONC (BEAKER) (test fqjo=286) 31.3 GM/DL 32.2- 35.5 RED CELL DISTRIBUTION WIDTH (BEAKER) (test cwtu=584) 19.7 % 11.7-14.4 PLATELET COUNT (BEAKER) (test rmhx=016) 108 K/CU MM 150-450 MEAN PLATELET VOLUME (BEAKER) (test iown=792) 12.6 fL 9.4-12.3 NUCLEATED RED BLOOD CELLS (BEAKER) (test tytx=512) 0 /100 WBC 0-0 NEUTROPHILS RELATIVE PERCENT (BEAKER) (test otjl=653) 76 % LYMPHOCYTES RELATIVE PERCENT (BEAKER) (test chwv=530) 6 % MONOCYTES RELATIVE PERCENT (BEAKER) (test loho=153) 12 % EOSINOPHILS RELATIVE PERCENT (BEAKER) (test acko=255) 5 % BASOPHILS RELATIVE PERCENT (BEAKER) (test tcfx=764) 1 % NEUTROPHILS ABSOLUTE COUNT (BEAKER) (test avvs=839) 5.70 K/ L 1.56-6.13 LYMPHOCYTES ABSOLUTE COUNT (BEAKER) (test yvfh=702) 0.45 K/ L 1.18-3.74 MONOCYTES ABSOLUTE COUNT (BEAKER) (test gqyq=810) 0.89 K/ L 0.24-0.36 EOSINOPHILS ABSOLUTE COUNT (BEAKER) (test jlaq=928) 0.34 K/ L 0.04-0.36 BASOPHILS ABSOLUTE COUNT (BEAKER) (test tbxw=357) 0.06 K/ L 0.01-0.08 IMMATURE GRANULOCYTES-RELATIVE PERCENT (BEAKER) (test zvwj=4196) 1 % 0-1 [id number] 05:40:00* Test Item Value Reference Range Comments PHOSPHORUS (BEAKER) (test ggna=403) 3.2 mg/dL 2.3-4.7 [id number] 05:40:00* Test Item Value Reference Range Comments MAGNESIUM (BEAKER) (test wfst=246) 1.4 mg/dL 1.6-2.6 BASIC METABOLIC [id number] 05:40:00* Test Item Value Reference Range Comments SODIUM (BEAKER) (test yogw=007) 136 meq/L 136-145 POTASSIUM (BEAKER) (test zfzt=713) 3.6 meq/L 3.5-5.1 CHLORIDE (BEAKER) (test djhi=727) 101 meq/L 98-107 CO2 (BEAKER) (test ygjw=819) 24 meq/L 22-29 BLOOD UREA NITROGEN (BEAKER) (test ouag=982) 24 mg/dL 7-21 CREATININE (BEAKER) (test aavm=318) 5.62 mg/dL 0.57-1.25 GLUCOSE RANDOM (BEAKER) (test sbyi=220) 103 mg/dL 70-105 CALCIUM (BEAKER) (test owyb=905) 7.9 mg/dL 8.4-10.2 EGFR (BEAKER) (test dtmz=9605) 7 mL/min/1.73 sq m ESTIMATED GFR IS NOT ACCURATE CREATININE CLEARANCE IN PREDICTING GLOMERULAR FILTRATION RATE. ESTIMATED GFR IS NOT APPLICABLE FOR DIALYSIS PATIENTS. PROTHROMBIN TIME/[id number] 05:30:00* Test Item Value Reference Range Comments PROTIME (BEAKER) (test jrpt=496) 16.7 seconds 11.7-14.7 INR (BEAKER) (test ezih=072) 1.4 <=5.9 RECOMMENDED COUMADIN/WARFARIN INR THERAPY RANGESSTANDARD DOSE: 2.0 - 3.0 Includes: PROPHYLAXIS for venous thrombosis, systemic embolization; TREATMENT for venous thrombosis and/or pulmonary embolus.HIGH RISK: Target INR is 2.5-3.5 for patients with mechanical heart valves.POCT-GLUCOSE [id number] 21:57:00 * Test Item Value Reference Range Comments POC-GLUCOSE METER (BEAKER) (test ltxg=9310) 141 mg/dL 70-110 TESTED AT [address] [address] POCT-GLUCOSE [id number] 18:25:00* Test Item Value Reference Range Comments POC-GLUCOSE METER (BEAKER) (test hqjz=3853) 131 mg/dL 70-110 TESTED AT [address] [address] POCT-GLUCOSE [id number] 11:40:00* Test Item Value Reference Range Comments POC-GLUCOSE METER (BEAKER) (test bpxk=0977) 183 mg/dL 70-110 TESTED AT [address] [address] POCT-GLUCOSE [id number] 11:40:00* Test Item Value Reference Range Comments POC-GLUCOSE METER (BEAKER) (test pblj=3496) 100 mg/dL 70-110 TESTED AT [address] [address] CBC W/PLT COUNT & AUTO [id number] 07:39:00* Test Item Value Reference Range Comments WHITE BLOOD CELL COUNT (BEAKER) (test qbhn=440) 6.9 K/ L 3.5-10.5 RED BLOOD CELL COUNT (BEAKER) (test tzuc=701) 2.86 M/ L 3.93-5.22 HEMOGLOBIN (BEAKER) (test tepj=552) 9.4 GM/DL 11.2-15.7 HEMATOCRIT (BEAKER) (test yopc=901) 29.9 % 34.1-44.9 MEAN CORPUSCULAR VOLUME (BEAKER) (test mkai=702) 104.5 fL 79.4-94.8 MEAN CORPUSCULAR HEMOGLOBIN (BEAKER) (test jhfy=199) 32.9 pg 25.6-32.2 MEAN CORPUSCULAR HEMOGLOBIN CONC (BEAKER) (test souz=775) 31.4 GM/DL 32.2- 35.5 RED CELL DISTRIBUTION WIDTH (BEAKER) (test zpil=358) 19.9 % 11.7-14.4 PLATELET COUNT (BEAKER) (test aluf=391) 93 K/CU MM 150-450 MEAN PLATELET VOLUME (BEAKER) (test stmm=716) 13.0 fL 9.4-12.3 NUCLEATED RED BLOOD CELLS (BEAKER) (test ppnt=636) 0 /100 WBC 0-0 NEUTROPHILS RELATIVE PERCENT (BEAKER) (test ptdw=550) 75 % LYMPHOCYTES RELATIVE PERCENT (BEAKER) (test xxbx=795) 6 % MONOCYTES RELATIVE PERCENT (BEAKER) (test bccj=458) 15 % EOSINOPHILS RELATIVE PERCENT (BEAKER) (test zrfs=150) 4 % BASOPHILS RELATIVE PERCENT (BEAKER) (test vlht=316) 1 % NEUTROPHILS ABSOLUTE COUNT (BEAKER) (test yvum=135) 5.16 K/ L 1.56-6.13 LYMPHOCYTES ABSOLUTE COUNT (BEAKER) (test aqjx=568) 0.38 K/ L 1.18-3.74 MONOCYTES ABSOLUTE COUNT (BEAKER) (test dcsm=833) 1.00 K/ L 0.24-0.36 EOSINOPHILS ABSOLUTE COUNT (BEAKER) (test updx=538) 0.28 K/ L 0.04-0.36 BASOPHILS ABSOLUTE COUNT (BEAKER) (test fmhq=289) 0.06 K/ L 0.01-0.08 IMMATURE GRANULOCYTES-RELATIVE PERCENT (BEAKER) (test ugaa=7465) 0 % 0-1 [id number] 06:51:00* Test Item Value Reference Range Comments PHOSPHORUS (BEAKER) (test bdyo=828) 2.9 mg/dL 2.3-4.7 [id number] 06:51:00* Test Item Value Reference Range Comments MAGNESIUM (BEAKER) (test xeih=624) 2.0 mg/dL 1.6-2.6 PROTHROMBIN TIME/[id number] 06:49:00* Test Item Value Reference Range Comments PROTIME (BEAKER) (test ddng=585) 17.0 seconds 11.7-14.7 INR (BEAKER) (test bspa=356) 1.4 <=5.9 RECOMMENDED COUMADIN/WARFARIN INR THERAPY RANGESSTANDARD DOSE: 2.0 - 3.0 Includes: PROPHYLAXIS for venous thrombosis, systemic embolization; TREATMENT for venous thrombosis and/or pulmonary embolus.HIGH RISK: Target INR is 2.5-3.5 for patients with mechanical heart valves.POCT-GLUCOSE [id number] 22:18:00 * Test Item Value Reference Range Comments POC-GLUCOSE METER (BEAKER) (test nmek=3380) 156 mg/dL 70-110 TESTED AT [address] [address] POCT-GLUCOSE [id number] 18:21:00* Test Item Value Reference Range Comments POC-GLUCOSE METER (BEAKER) (test bqkf=2518) 105 mg/dL 70-110 TESTED AT [address] [address] POCT-GLUCOSE [id number] 16:05:00* Test Item Value Reference Range Comments POC-GLUCOSE METER (BEAKER) (test sfeh=1148) 114 mg/dL 70-110 TESTED AT [address] [address] POCT-GLUCOSE [id number] 11:43:00* Test Item Value Reference Range Comments POC-GLUCOSE METER (BEAKER) (test janc=1884) 114 mg/dL 70-110 TESTED AT [address] [address] POCT-GLUCOSE [id number] 08:40:00* Test Item Value Reference Range Comments POC-GLUCOSE METER (BEAKER) (test chxf=4718) 110 mg/dL 70-110 TESTED AT [address] [address] COMPREHENSIVE METABOLIC [id number] 05:42:00* Test Item Value Reference Range Comments TOTAL PROTEIN (BEAKER) (test igzi=285) 5.6 gm/dL 6.0-8.3 ALBUMIN (BEAKER) (test nwab=1916) 2.8 g/dL 3.5-5.0 ALKALINE PHOSPHATASE (BEAKER) (test roff=833) 91 U/L 40-150 BILIRUBIN TOTAL (BEAKER) (test zekd=601) 1.3 mg/dL 0.2-1.2 SODIUM (BEAKER) (test lpzd=511) 134 meq/L 136-145 POTASSIUM (BEAKER) (test lsku=206) 3.4 meq/L 3.5-5.1 CHLORIDE (BEAKER) (test txrr=748) 97 meq/L 98-107 CO2 (BEAKER) (test tfdd=449) 23 meq/L 22-29 BLOOD UREA NITROGEN (BEAKER) (test lfok=052) 27 mg/dL 7-21 CREATININE (BEAKER) (test vqhd=279) 5.62 mg/dL 0.57-1.25 GLUCOSE RANDOM (BEAKER) (test aqzc=308) 116 mg/dL 70-105 CALCIUM (BEAKER) (test zqfc=112) 7.3 mg/dL 8.4-10.2 AST (SGOT) (BEAKER) (test spvr=276) 21 U/L 5-34 ALT (SGPT) (BEAKER) (test vofd=562) 10 U/L 6-55 EGFR (BEAKER) (test hjbp=0633) 7 mL/min/1.73 sq m ESTIMATED GFR IS NOT ACCURATE CREATININE CLEARANCE IN PREDICTING GLOMERULAR FILTRATION RATE. ESTIMATED GFR IS NOT APPLICABLE FOR DIALYSIS PATIENTS. [id number] 05:41:00* Test Item Value Reference Range Comments PHOSPHORUS (BEAKER) (test zqrn=992) 4.1 mg/dL 2.3-4.7 [id number] 05:41:00* Test Item Value Reference Range Comments MAGNESIUM (BEAKER) (test bzxz=643) 1.5 mg/dL 1.6-2.6 PROTHROMBIN TIME/[id number] 05:05:00* Test Item Value Reference Range Comments PROTIME (BEAKER) (test foou=018) 15.7 seconds 11.7-14.7 INR (BEAKER) (test mmcs=277) 1.3 <=5.9 RECOMMENDED COUMADIN/WARFARIN INR THERAPY RANGESSTANDARD DOSE: 2.0 - 3.0 Includes: PROPHYLAXIS for venous thrombosis, systemic embolization; TREATMENT for venous thrombosis and/or pulmonary embolus.HIGH RISK: Target INR is 2.5-3.5 for patients with mechanical heart valves.CBC W/PLT COUNT & AUTO [id number] 04:48:00* Test Item Value Reference Range Comments WHITE BLOOD CELL COUNT (BEAKER) (test krsq=269) 7.3 K/ L 3.5-10.5 RED BLOOD CELL COUNT (BEAKER) (test npjt=459) 2.91 M/ L 3.93-5.22 HEMOGLOBIN (BEAKER) (test jtkb=925) 9.5 GM/DL 11.2-15.7 HEMATOCRIT (BEAKER) (test qcqx=632) 29.6 % 34.1-44.9 MEAN CORPUSCULAR VOLUME (BEAKER) (test blhz=540) 101.7 fL 79.4-94.8 MEAN CORPUSCULAR HEMOGLOBIN (BEAKER) (test rwks=160) 32.6 pg 25.6-32.2 MEAN CORPUSCULAR HEMOGLOBIN CONC (BEAKER) (test iwmd=806) 32.1 GM/DL 32.2- 35.5 RED CELL DISTRIBUTION WIDTH (BEAKER) (test pnky=833) 19.4 % 11.7-14.4 PLATELET COUNT (BEAKER) (test jbqs=835) 93 K/CU MM 150-450 MEAN PLATELET VOLUME (BEAKER) (test aduj=481) 13.2 fL 9.4-12.3 NUCLEATED RED BLOOD CELLS (BEAKER) (test owvg=501) 0 /100 WBC 0-0 NEUTROPHILS RELATIVE PERCENT (BEAKER) (test eohg=371) 79 % LYMPHOCYTES RELATIVE PERCENT (BEAKER) (test lcrb=836) 5 % MONOCYTES RELATIVE PERCENT (BEAKER) (test kiox=787) 12 % EOSINOPHILS RELATIVE PERCENT (BEAKER) (test pvwf=575) 3 % BASOPHILS RELATIVE PERCENT (BEAKER) (test xwvh=493) 1 % NEUTROPHILS ABSOLUTE COUNT (BEAKER) (test wknw=718) 5.70 K/ L 1.56-6.13 LYMPHOCYTES ABSOLUTE COUNT (BEAKER) (test igzd=686) 0.38 K/ L 1.18-3.74 MONOCYTES ABSOLUTE COUNT (BEAKER) (test nsdq=417) 0.85 K/ L 0.24-0.36 EOSINOPHILS ABSOLUTE COUNT (BEAKER) (test ykby=275) 0.25 K/ L 0.04-0.36 BASOPHILS ABSOLUTE COUNT (BEAKER) (test xptv=170) 0.04 K/ L 0.01-0.08 IMMATURE GRANULOCYTES-RELATIVE PERCENT (BEAKER) (test hnlp=5631) 0 % 0-1 POCT-GLUCOSE [id number] 18:19:00* Test Item Value Reference Range Comments POC-GLUCOSE METER (BEAKER) (test hihc=6100) 142 mg/dL 70-[address] [facility] [address] [facility] [address] POCT-GLUCOSE [id number] 13:54:00* Test Item Value Reference Range Comments POC-GLUCOSE METER (BEAKER) (test zadh=3046) 153 mg/dL 70-110 TESTED AT [place] [id number] [facility] [address] CBC W/PLT COUNT & AUTO [id number] 08:20:00* Test Item Value Reference Range Comments WHITE BLOOD CELL COUNT (BEAKER) (test jykt=695) 5.4 K/ L 3.5-10.5 RED BLOOD CELL COUNT (BEAKER) (test hkmz=862) 2.96 M/ L 3.93-5.22 HEMOGLOBIN (BEAKER) (test lolb=994) 9.7 GM/DL 11.2-15.7 HEMATOCRIT (BEAKER) (test ukvm=297) 29.5 % 34.1-44.9 MEAN CORPUSCULAR VOLUME (BEAKER) (test lapm=648) 99.7 fL 79.4-94.8 MEAN CORPUSCULAR HEMOGLOBIN (BEAKER) (test smke=394) 32.8 pg 25.6-32.2 MEAN CORPUSCULAR HEMOGLOBIN CONC (BEAKER) (test fnsc=862) 32.9 GM/DL 32.2- 35.5 RED CELL DISTRIBUTION WIDTH (BEAKER) (test mtjt=098) 19.4 % 11.7-14.4 PLATELET COUNT (BEAKER) (test wudj=990) 84 K/CU MM 150-450 Large and giant platelets seen on smear. MEAN PLATELET VOLUME (BEAKER) (test fept=944) 13.6 fL 9.4-12.3 NUCLEATED RED BLOOD CELLS (BEAKER) (test hidg=554) 0 /100 WBC 0-0 NEUTROPHILS RELATIVE PERCENT (BEAKER) (test onnm=134) 77 % LYMPHOCYTES RELATIVE PERCENT (BEAKER) (test jkgk=822) 6 % MONOCYTES RELATIVE PERCENT (BEAKER) (test ypui=282) 11 % EOSINOPHILS RELATIVE PERCENT (BEAKER) (test ygec=997) 4 % BASOPHILS RELATIVE PERCENT (BEAKER) (test kpgs=016) 1 % NEUTROPHILS ABSOLUTE COUNT (BEAKER) (test zmql=427) 4.19 K/ L 1.56-6.13 LYMPHOCYTES ABSOLUTE COUNT (BEAKER) (test xwpu=468) 0.31 K/ L 1.18-3.74 MONOCYTES ABSOLUTE COUNT (BEAKER) (test gngb=649) 0.62 K/ L 0.24-0.36 EOSINOPHILS ABSOLUTE COUNT (BEAKER) (test ljap=491) 0.23 K/ L 0.04-0.36 BASOPHILS ABSOLUTE COUNT (BEAKER) (test onhh=934) 0.04 K/ L 0.01-0.08 IMMATURE GRANULOCYTES-RELATIVE PERCENT (BEAKER) (test ixfr=9681) 1 % 0-1 COMPREHENSIVE METABOLIC [id number] 05:13:00* Test Item Value Reference Range Comments TOTAL PROTEIN (BEAKER) (test fzen=237) 5.5 gm/dL 6.0-8.3 ALBUMIN (BEAKER) (test ypod=0911) 2.8 g/dL 3.5-5.0 ALKALINE PHOSPHATASE (BEAKER) (test lgfx=450) 94 U/L 40-150 BILIRUBIN TOTAL (BEAKER) (test djgi=817) 1.6 mg/dL 0.2-1.2 SODIUM (BEAKER) (test iyhr=788) 135 meq/L 136-145 POTASSIUM (BEAKER) (test alek=087) 3.7 meq/L 3.5-5.1 CHLORIDE (BEAKER) (test pksh=593) 98 meq/L 98-107 CO2 (BEAKER) (test omrd=708) 25 meq/L 22-29 BLOOD UREA NITROGEN (BEAKER) (test hlqj=562) 22 mg/dL 7-21 CREATININE (BEAKER) (test hiin=161) 4.57 mg/dL 0.57-1.25 GLUCOSE RANDOM (BEAKER) (test cvns=578) 115 mg/dL 70-105 CALCIUM (BEAKER) (test nunk=666) 7.2 mg/dL 8.4-10.2 AST (SGOT) (BEAKER) (test cpkq=952) 25 U/L 5-34 ALT (SGPT) (BEAKER) (test zdjc=332) 12 U/L 6-55 EGFR (BEAKER) (test sbhb=0736) 9 mL/min/1.73 sq m ESTIMATED GFR IS NOT ACCURATE CREATININE CLEARANCE IN PREDICTING GLOMERULAR FILTRATION RATE. ESTIMATED GFR IS NOT APPLICABLE FOR DIALYSIS PATIENTS. [id number] 05:00:00* Test Item Value Reference Range Comments PHOSPHORUS (BEAKER) (test qhzt=668) 4.1 mg/dL 2.3-4.7 [id number] 05:00:00* Test Item Value Reference Range Comments MAGNESIUM (BEAKER) (test inal=246) 1.5 mg/dL 1.6-2.6 PROTHROMBIN [id number] 04:37:00* Test Item Value Reference Range Comments PROTIME (BEAKER) (test mveq=884) 15.7 seconds 11.7-14.7 INR (BEAKER) (test njox=105) 1.3 <=5.9 RECOMMENDED COUMADIN/WARFARIN INR THERAPY RANGESSTANDARD DOSE: 2.0 - 3.0 Includes: PROPHYLAXIS for venous thrombosis, systemic embolization; TREATMENT for venous thrombosis and/or pulmonary embolus.HIGH RISK: Target INR is 2.5-3.5 for patients with mechanical heart valves.HEMOGLOBIN AND [id number] 00 :20:00* Test Item Value Reference Range Comments HEMOGLOBIN (BEAKER) (test nbeh=214) 9.4 GM/DL 11.2-15.7 HEMATOCRIT (BEAKER) (test nbmv=926) 29.4 % 34.1-44.9 POCT-GLUCOSE [id number] 22:43:00* Test Item Value Reference Range Comments POC-GLUCOSE METER (BEAKER) (test pnde=3927) 143 mg/dL 70-110 TESTED AT [place] [id number] HEMOGLOBIN AND [id number] 19:19:00* Test Item Value Reference Range Comments HEMOGLOBIN (BEAKER) (test rcrh=815) 9.8 GM/DL 11.2-15.7 HEMATOCRIT (BEAKER) (test djid=554) 29.8 % 34.1-44.9 POCT-GLUCOSE [id number] 18:17:00* Test Item Value Reference Range Comments POC-GLUCOSE METER (BEAKER) (test rebd=3743) 167 mg/dL 70-110 TESTED AT [address] [id number] (MANUAL DIFFERENTIAL)2017-01-03 13:52:00* Test Item Value Reference Range Comments TOTAL COUNTED (BEAKER) (test rbsr=3391) WBC MORPHOLOGY (BEAKER) (test nfsv=244) Normal PLT MORPHOLOGY (BEAKER) (test eoss=608) Normal ANISOCYTOSIS (BEAKER) (test ngwb=423) 2+ moderate HYPOCHROMIA (BEAKER) (test bpre=299) 1+ few MACROCYTES (BEAKER) (test hfqy=790) 2+ moderate MICROCYTES (BEAKER) (test wrca=093) 1+ few POIKILOCYTES (BEAKER) (test zhat=287) 1+ few CBC W/PLT COUNT & AUTO [id number] 13:50:00* Test Item Value Reference Range Comments WHITE BLOOD CELL COUNT (BEAKER) (test uwje=115) 6.7 K/ L 3.5-10.5 RED BLOOD CELL COUNT (BEAKER) (test udeq=448) 2.48 M/ L 3.93-5.22 HEMOGLOBIN (BEAKER) (test bclp=985) 8.1 GM/DL 11.2-15.7 hypochromasia HEMATOCRIT (BEAKER) (test qufo=284) 25.5 % 34.1-44.9 MEAN CORPUSCULAR VOLUME (BEAKER) (test oxib=948) 102.8 fL 79.4-94.8 MEAN CORPUSCULAR HEMOGLOBIN (BEAKER) (test iooi=622) 32.7 pg 25.6-32.2 MEAN CORPUSCULAR HEMOGLOBIN CONC (BEAKER) (test jhdh=864) 31.8 GM/DL 32.2- 35.5 RED CELL DISTRIBUTION WIDTH (BEAKER) (test pyng=955) 21.4 % 11.7-14.4 Aniso , poik, macrocytes PLATELET COUNT (BEAKER) (test berz=518) 92 K/CU MM 150-450 MEAN PLATELET VOLUME (BEAKER) (test rsyi=507) 13.1 fL 9.4-12.3 NUCLEATED RED BLOOD CELLS (BEAKER) (test auls=914) 0 /100 WBC 0-0 IMMATURE GRANULOCYTES-RELATIVE PERCENT (BEAKER) (test kovg=5070) 0 % 0-1 [id number] 12:31:00* Test Item Value Reference Range Comments FIBRINOGEN LEVEL (BEAKER) (test pbfg=463) 226 mg/dl 225-434 HEMOGLOBIN AND [id number] 12:23:00* Test Item Value Reference Range Comments HEMOGLOBIN (BEAKER) (test duee=427) 9.6 GM/DL 11.2-15.7 HEMATOCRIT (BEAKER) (test mhni=498) 29.5 % 34.1-44.9 COMPREHENSIVE METABOLIC [id number] 05:47:00* Test Item Value Reference Range Comments TOTAL PROTEIN (BEAKER) (test poov=927) 5.9 gm/dL 6.0-8.3 Specimen slightly hemolyzed ALBUMIN (BEAKER) (test wzbk=2401) 3.0 g/dL 3.5-5.0 Specimen slightly hemolyzed ALKALINE PHOSPHATASE (BEAKER) (test mgli=557) 103 U/L 40-150 BILIRUBIN TOTAL (BEAKER) (test tsjm=406) 1.5 mg/dL 0.2-1.2 Specimen slightly hemolyzed SODIUM (BEAKER) (test pdsx=393) 134 meq/L 136-145 POTASSIUM (BEAKER) (test nwcx=647) 4.2 meq/L 3.5-5.1 Specimen slightly hemolyzed CHLORIDE (BEAKER) (test dhhc=248) 97 meq/L 98-107 CO2 (BEAKER) (test ehzg=735) 24 meq/L 22-29 BLOOD UREA NITROGEN (BEAKER) (test xdka=828) 17 mg/dL 7-21 CREATININE (BEAKER) (test gakc=353) 3.52 mg/dL 0.57-1.25 Specimen slightly hemolyzed GLUCOSE RANDOM (BEAKER) (test mext=828) 147 mg/dL 70-105 CALCIUM (BEAKER) (test ksrd=150) 7.5 mg/dL 8.4-10.2 AST (SGOT) (BEAKER) (test vyzj=408) 34 U/L 5-34 Specimen slightly hemolyzed ALT (SGPT) (BEAKER) (test xmap=163) 15 U/L 6-55 Specimen slightly hemolyzed EGFR (BEAKER) (test thhg=8623) 13 mL/min/1.73 sq m ESTIMATED GFR IS NOT ACCURATE CREATININE CLEARANCE IN PREDICTING GLOMERULAR FILTRATION RATE. ESTIMATED GFR IS NOT APPLICABLE FOR DIALYSIS PATIENTS. [id number] 05:33:00* Test Item Value Reference Range Comments MAGNESIUM (BEAKER) (test dwzq=578) 1.7 mg/dL 1.6-2.6 Specimen slightly hemolyzed [id number] 05:33:00* Test Item Value Reference Range Comments PHOSPHORUS (BEAKER) (test uodn=023) 3.6 mg/dL 2.3-4.7 Specimen slightly hemolyzed PROTHROMBIN TIME/[id number] 05:20:00* Test Item Value Reference Range Comments PROTIME (BEAKER) (test kthu=563) 24.3 seconds 11.7-14.7 INR (BEAKER) (test lzhq=199) 2.2 <=5.9 RECOMMENDED COUMADIN/WARFARIN INR THERAPY RANGESSTANDARD DOSE: 2.0 - 3.0 Includes: PROPHYLAXIS for venous thrombosis, systemic embolization; TREATMENT for venous thrombosis and/or pulmonary embolus.HIGH RISK: Target INR is 2.5-3.5 for patients with mechanical heart valves.PROTHROMBIN TIME/[id number] 01:08: 00* Test Item Value Reference Range Comments PROTIME (BEAKER) (test ruuu=350) 35.9 seconds 11.7-14.7 INR (BEAKER) (test gvev=887) 3.6 <=5.9 RECOMMENDED COUMADIN/WARFARIN INR THERAPY RANGESSTANDARD DOSE: 2.0 - 3.0 Includes: PROPHYLAXIS for venous thrombosis, systemic embolization; TREATMENT for venous thrombosis and/or pulmonary embolus.HIGH RISK: Target INR is 2.5-3.5 for patients with mechanical heart valves.HEMOGLOBIN AND [id number] 00 :17:00* Test Item Value Reference Range Comments HEMOGLOBIN (BEAKER) (test crob=052) 6.9 GM/DL 11.2-15.7 HEMATOCRIT (BEAKER) (test emnl=538) 22.6 % 34.1-44.9 POCT-GLUCOSE [id number] 22:04:00* Test Item Value Reference Range Comments POC-GLUCOSE METER (BEAKER) (test tlrk=4785) 134 mg/dL 70-110 TESTED AT [place] [id number] [facility] [id number] HEMOGLOBIN AND [id number] 18:22:00* Test Item Value Reference Range Comments HEMOGLOBIN (BEAKER) (test rgwv=473) 8.8 GM/DL 11.2-15.7 HEMATOCRIT (BEAKER) (test lqpm=310) 28.2 % 34.1-44.9 POCT-GLUCOSE [id number] 18:07:00* Test Item Value Reference Range Comments POC-GLUCOSE METER (BEAKER) (test ried=6535) 95 mg/dL 70-[address] [facility] [address] [facility] [address] HEPATITIS B SURFACE [id number] 15:19:00* Test Item Value Reference Range Comments HEPATITIS B SURFACE ANTIGEN (2) (BEAKER) (test hlmu=6676) Nonreactive Nonreactive HEMOGLOBIN AND [id number] 12:32:00* Test Item Value Reference Range Comments HEMOGLOBIN (BEAKER) (test yvwy=525) 6.1 GM/DL 11.2-15.7 HEMATOCRIT (BEAKER) (test bfcf=939) 20.1 % 34.1-44.9 If Hb 6 or less than notify [facility] Hospitalist [phone] TIME/[id number] 08:35:00* Test Item Value Reference Range Comments PROTIME (BEAKER) (test acys=122) 51.6 seconds 11.7-14.7 INR (BEAKER) (test vbsk=008) 5.6 <=5.9 RECOMMENDED COUMADIN/WARFARIN INR THERAPY RANGESSTANDARD DOSE: 2.0 - 3.0 Includes: PROPHYLAXIS for venous thrombosis, systemic embolization; TREATMENT for venous thrombosis and/or pulmonary embolus.HIGH RISK: Target INR is 2.5-3.5 for patients with mechanical heart valves.CBC W/PLT COUNT & AUTO [id number] 07:08:00* Test Item Value Reference Range Comments WHITE BLOOD CELL COUNT (BEAKER) (test laew=774) 5.8 K/ L 3.5-10.5 RED BLOOD CELL COUNT (BEAKER) (test jiwr=652) 1.97 M/ L 3.93-5.22 HEMOGLOBIN (BEAKER) (test kces=281) 6.3 GM/DL 11.2-15.7 HEMATOCRIT (BEAKER) (test vqzq=801) 21.4 % 34.1-44.9 MEAN CORPUSCULAR VOLUME (BEAKER) (test wpmh=949) 108.6 fL 79.4-94.8 MEAN CORPUSCULAR HEMOGLOBIN (BEAKER) (test aqsf=340) 32.0 pg 25.6-32.2 MEAN CORPUSCULAR HEMOGLOBIN CONC (BEAKER) (test vzxt=307) 29.4 GM/DL 32.2- 35.5 RED CELL DISTRIBUTION WIDTH (BEAKER) (test xfax=713) 23.1 % 11.7-14.4 PLATELET COUNT (BEAKER) (test ujcw=352) 102 K/CU MM 150-450 MEAN PLATELET VOLUME (BEAKER) (test gxhu=642) 12.9 fL 9.4-12.3 NUCLEATED RED BLOOD CELLS (BEAKER) (test zlrh=668) 0 /100 WBC 0-0 NEUTROPHILS RELATIVE PERCENT (BEAKER) (test sciq=632) 74 % LYMPHOCYTES RELATIVE PERCENT (BEAKER) (test tazq=777) 7 % MONOCYTES RELATIVE PERCENT (BEAKER) (test xrpf=032) 12 % EOSINOPHILS RELATIVE PERCENT (BEAKER) (test eesj=354) 7 % BASOPHILS RELATIVE PERCENT (BEAKER) (test vwqc=076) 1 % NEUTROPHILS ABSOLUTE COUNT (BEAKER) (test doqv=111) 4.27 K/ L 1.56-6.13 LYMPHOCYTES ABSOLUTE COUNT (BEAKER) (test gpvm=185) 0.39 K/ L 1.18-3.74 MONOCYTES ABSOLUTE COUNT (BEAKER) (test estb=467) 0.69 K/ L 0.24-0.36 EOSINOPHILS ABSOLUTE COUNT (BEAKER) (test prwh=233) 0.39 K/ L 0.04-0.36 BASOPHILS ABSOLUTE COUNT (BEAKER) (test nmck=594) 0.03 K/ L 0.01-0.08 IMMATURE GRANULOCYTES-RELATIVE PERCENT (BEAKER) (test skll=6013) 1 % 0-1 BASIC METABOLIC [id number] 06:43:00* Test Item Value Reference Range Comments SODIUM (BEAKER) (test lynz=245) 132 meq/L 136-145 POTASSIUM (BEAKER) (test hlqq=907) 4.2 meq/L 3.5-5.1 CHLORIDE (BEAKER) (test wwog=061) 96 meq/L 98-107 CO2 (BEAKER) (test umbm=241) 25 meq/L 22-29 BLOOD UREA NITROGEN (BEAKER) (test aijx=756) 39 mg/dL 7-21 CREATININE (BEAKER) (test utoz=107) 5.95 mg/dL 0.57-1.25 GLUCOSE RANDOM (BEAKER) (test xoyi=965) 295 mg/dL 70-105 CALCIUM (BEAKER) (test blbo=777) 7.2 mg/dL 8.4-10.2 EGFR (BEAKER) (test hinq=6227) 7 mL/min/1.73 sq m ESTIMATED GFR IS NOT ACCURATE CREATININE CLEARANCE IN PREDICTING GLOMERULAR FILTRATION RATE. ESTIMATED GFR IS NOT APPLICABLE FOR DIALYSIS PATIENTS. HEMOGLOBIN AND [id number] 06:08:00* Test Item Value Reference Range Comments HEMOGLOBIN (BEAKER) (test phtb=537) 6.5 GM/DL 11.2-15.7 HEMATOCRIT (BEAKER) (test xqpw=231) 21.4 % 34.1-44.9 If Hb 6 or less than notify [facility] Hospitalist [phone] AND [id number] 00:02:00* Test Item Value Reference Range Comments HEMOGLOBIN (BEAKER) (test zdxn=938) 6.8 GM/DL 11.2-15.7 HEMATOCRIT (BEAKER) (test moms=424) 22.2 % 34.1-44.9 If Hb 6 or less than notify [facility] Hospitalist [phone] B SURFACE [id number] 20:51:00* Test Item Value Reference Range Comments HEPATITIS B SURFACE ANTIGEN (2) (BEAKER) (test ibby=4515) Nonreactive Nonreactive HEMOGLOBIN AND [id number] 19:57:00* Test Item Value Reference Range Comments HEMOGLOBIN (BEAKER) (test kkju=559) 7.0 GM/DL 11.2-15.7 HEMATOCRIT (BEAKER) (test qege=388) 23.3 % 34.1-44.9 If Hb 6 or less than notify [facility] Hospitalist [phone] METABOLIC [id number] 15:19:00* Test Item Value Reference Range Comments SODIUM (BEAKER) (test qovw=847) 141 meq/L 136-145 POTASSIUM (BEAKER) (test yidf=256) 4.5 meq/L 3.5-5.1 Specimen slightly hemolyzed CHLORIDE (BEAKER) (test fqkq=739) 99 meq/L 98-107 CO2 (BEAKER) (test umke=023) 30 meq/L 22-29 BLOOD UREA NITROGEN (BEAKER) (test fvvt=452) 35 mg/dL 7-21 CREATININE (BEAKER) (test jrcw=501) 5.56 mg/dL 0.57-1.25 Specimen slightly hemolyzed GLUCOSE RANDOM (BEAKER) (test odxl=689) 95 mg/dL 70-105 CALCIUM (BEAKER) (test lllg=950) 8.5 mg/dL 8.4-10.2 EGFR (BEAKER) (test pnbl=9426) 8 mL/min/1.73 sq m ESTIMATED GFR IS NOT ACCURATE CREATININE CLEARANCE IN PREDICTING GLOMERULAR FILTRATION RATE. ESTIMATED GFR IS NOT APPLICABLE FOR DIALYSIS PATIENTS. [id number] 15:17:00* Test Item Value Reference Range Comments LIPASE (BEAKER) (test virh=421) 37 U/L 8-78 [id number] 15:17:00* Test Item Value Reference Range Comments AMYLASE (BEAKER) (test duau=762) 50 U/L 25-125 Specimen slightly hemolyzed HEPATIC FUNCTION [id number] 15:17:00* Test Item Value Reference Range Comments TOTAL PROTEIN (BEAKER) (test qemi=335) 6.4 gm/dL 6.0-8.3 Specimen slightly hemolyzed ALBUMIN (BEAKER) (test jhpl=1983) 3.2 g/dL 3.5-5.0 Specimen slightly hemolyzed BILIRUBIN TOTAL (BEAKER) (test phfa=658) 1.4 mg/dL 0.2-1.2 Specimen slightly hemolyzed BILIRUBIN DIRECT (BEAKER) (test fdxv=138) 0.6 mg/dL 0.1-0.5 Specimen slightly hemolyzed ALKALINE PHOSPHATASE (BEAKER) (test fehe=250) 137 U/L 40-150 AST (SGOT) (BEAKER) (test fcdg=162) 35 U/L 5-34 Specimen slightly hemolyzed ALT (SGPT) (BEAKER) (test dujl=074) 15 U/L 6-55 Specimen slightly hemolyzed CBC W/PLT COUNT & AUTO [id number] 15:10:00* Test Item Value Reference Range Comments WHITE BLOOD CELL COUNT (BEAKER) (test sgst=521) 7.1 K/ L 3.5-10.5 RED BLOOD CELL COUNT (BEAKER) (test jqap=035) 2.56 M/ L 3.93-5.22 HEMOGLOBIN (BEAKER) (test jzfd=416) 8.3 GM/DL 11.2-15.7 HEMATOCRIT (BEAKER) (test xmcv=144) 27.7 % 34.1-44.9 MEAN CORPUSCULAR VOLUME (BEAKER) (test yudm=542) 108.2 fL 79.4-94.8 MEAN CORPUSCULAR HEMOGLOBIN (BEAKER) (test onmo=155) 32.4 pg 25.6-32.2 MEAN CORPUSCULAR HEMOGLOBIN CONC (BEAKER) (test rkvz=490) 30.0 GM/DL 32.2- 35.5 RED CELL DISTRIBUTION WIDTH (BEAKER) (test xcfc=615) 23.4 % 11.7-14.4 PLATELET COUNT (BEAKER) (test lvbr=080) 141 K/CU MM 150-450 MEAN PLATELET VOLUME (BEAKER) (test aefa=992) 13.0 fL 9.4-12.3 NUCLEATED RED BLOOD CELLS (BEAKER) (test epvx=896) 0 /100 WBC 0-0 NEUTROPHILS RELATIVE PERCENT (BEAKER) (test yvxp=934) 78 % LYMPHOCYTES RELATIVE PERCENT (BEAKER) (test whxc=913) 7 % MONOCYTES RELATIVE PERCENT (BEAKER) (test nfhs=380) 10 % EOSINOPHILS RELATIVE PERCENT (BEAKER) (test ewpb=623) 4 % BASOPHILS RELATIVE PERCENT (BEAKER) (test oexr=423) 1 % NEUTROPHILS ABSOLUTE COUNT (BEAKER) (test nhja=597) 5.53 K/ L 1.56-6.13 LYMPHOCYTES ABSOLUTE COUNT (BEAKER) (test taaq=293) 0.49 K/ L 1.18-3.74 MONOCYTES ABSOLUTE COUNT (BEAKER) (test tfqp=285) 0.70 K/ L 0.24-0.36 EOSINOPHILS ABSOLUTE COUNT (BEAKER) (test qsyw=291) 0.26 K/ L 0.04-0.36 BASOPHILS ABSOLUTE COUNT (BEAKER) (test chcz=177) 0.06 K/ L 0.01-0.08 IMMATURE GRANULOCYTES-RELATIVE PERCENT (BEAKER) (test ndqy=6803) 1 % 0-1 [id number] 15:00:00* Test Item Value Reference Range Comments PROTIME (BEAKER) (test prmc=139) 42.1 seconds 11.7-14.7 INR (BEAKER) (test ifiq=344) 4.4 <=5.9 PARTIAL THROMBOPLASTIN TIME (BEAKER) (test adnx=750) 42.2 seconds 22.5-36.0 RECOMMENDED COUMADIN/WARFARIN INR THERAPY RANGESSTANDARD DOSE: 2.0 - 3.0 Includes: PROPHYLAXIS for venous thrombosis, systemic embolization; TREATMENT for venous thrombosis and/or pulmonary embolus.HIGH RISK: Target INR is 2.5-3.5 for patients with mechanical heart valves.BASIC METABOLIC [id number] 06:06: 00* Test Item Value Reference Range Comments SODIUM (BEAKER) (test gjem=793) 136 meq/L 136-145 POTASSIUM (BEAKER) (test mkur=965) 4.1 meq/L 3.5-5.1 CHLORIDE (BEAKER) (test sgff=078) 95 meq/L 98-107 CO2 (BEAKER) (test uukk=129) 28 meq/L 22-29 BLOOD UREA NITROGEN (BEAKER) (test arou=938) 64 mg/dL 7-21 CREATININE (BEAKER) (test rjys=945) 6.66 mg/dL 0.57-1.25 GLUCOSE RANDOM (BEAKER) (test dpoz=936) 103 mg/dL 70-105 CALCIUM (BEAKER) (test uorm=837) 8.2 mg/dL 8.4-10.2 EGFR (BEAKER) (test npgw=6662) 6 mL/min/1.73 sq m ESTIMATED GFR IS NOT ACCURATE CREATININE CLEARANCE IN PREDICTING GLOMERULAR FILTRATION RATE. ESTIMATED GFR IS NOT APPLICABLE FOR DIALYSIS PATIENTS. [id number] 06:05:00* Test Item Value Reference Range Comments PHOSPHORUS (BEAKER) (test cmyn=377) 4.5 mg/dL 2.3-4.7 CBC W/PLT COUNT & AUTO [id number] 05:57:00* Test Item Value Reference Range Comments WHITE BLOOD CELL COUNT (BEAKER) (test dkas=669) 7.3 K/ L 4.0-10.0 RED BLOOD CELL COUNT (BEAKER) (test snih=905) 3.23 M/ L 4.00-5.00 HEMOGLOBIN (BEAKER) (test bpmr=358) 10.6 GM/DL 12.0-15.0 HEMATOCRIT (BEAKER) (test nuct=148) 33.0 % 36.0-45.0 MEAN CORPUSCULAR VOLUME (BEAKER) (test msok=122) 102.0 fL 82.0-99.0 MEAN CORPUSCULAR HEMOGLOBIN (BEAKER) (test pffa=415) 33.0 pg 27.0-33.0 MEAN CORPUSCULAR HEMOGLOBIN CONC (BEAKER) (test twdk=727) 32.2 GM/DL 32.0- 36.0 RED CELL DISTRIBUTION WIDTH (BEAKER) (test tmej=439) 18.0 % 10.3-14.2 PLATELET COUNT (BEAKER) (test qwqf=535) 153 K/CU MM 150-430 MEAN PLATELET VOLUME (BEAKER) (test rokc=296) 9.4 fL 6.5-10.5 NUCLEATED RED BLOOD CELLS (BEAKER) (test qjpp=713) 0 /100 WBC 0-0 NEUTROPHILS RELATIVE PERCENT (BEAKER) (test nobo=505) 78 % LYMPHOCYTES RELATIVE PERCENT (BEAKER) (test yplg=539) 5 % MONOCYTES RELATIVE PERCENT (BEAKER) (test ovaz=873) 10 % EOSINOPHILS RELATIVE PERCENT (BEAKER) (test pmtk=738) 6 % BASOPHILS RELATIVE PERCENT (BEAKER) (test imag=811) 1 % NEUTROPHILS ABSOLUTE COUNT (BEAKER) (test rbwb=395) 5.73 K/ L 1.80-8.00 LYMPHOCYTES ABSOLUTE COUNT (BEAKER) (test tjeb=639) 0.38 K/ L 1.48-4.50 MONOCYTES ABSOLUTE COUNT (BEAKER) (test fvqc=003) 0.74 K/ L 0.00-1.30 EOSINOPHILS ABSOLUTE COUNT (BEAKER) (test nmde=987) 0.42 K/ L 0.00-0.50 BASOPHILS ABSOLUTE COUNT (BEAKER) (test irvo=005) 0.06 K/ L 0.00-0.20 0.00PROTHROMBIN TIME/[id number] 05:55:00* Test Item Value Reference Range Comments PROTIME (BEAKER) (test zybm=691) 15.9 seconds 11.7-14.7 INR (BEAKER) (test bivd=378) 1.3 <=5.9 RECOMMENDED COUMADIN/WARFARIN INR THERAPY RANGESSTANDARD DOSE: 2.0 - 3.0 Includes: PROPHYLAXIS for venous thrombosis, systemic embolization; TREATMENT for venous thrombosis and/or pulmonary embolus.HIGH RISK: Target INR is 2.5-3.5 for patients with mechanical heart valves.While on warfarin.PROTHROMBIN TIME/ [id number] 18:16:00* Test Item Value Reference Range Comments PROTIME (BEAKER) (test vkyy=631) 15.8 seconds 11.7-14.7 INR (BEAKER) (test mpeh=798) 1.3 <=5.9 RECOMMENDED COUMADIN/WARFARIN INR THERAPY RANGESSTANDARD DOSE: 2.0 - 3.0 Includes: PROPHYLAXIS for venous thrombosis, systemic embolization; TREATMENT for venous thrombosis and/or pulmonary embolus.HIGH RISK: Target INR is 2.5-3.5 for patients with mechanical heart valves.While on warfarin.URINALYSIS W/ [id number] 16:11:00* Test Item Value Reference Range Comments COLOR (BEAKER) (test nvug=365) Yellow CLARITY (BEAKER) (test vqtj=695) Hazy SPECIFIC GRAVITY UA (BEAKER) (test ffrw=347) 1.014 1.001-1.035 PH UA (BEAKER) (test zjyn=370) 6.5 5.0-8.0 PROTEIN UA (BEAKER) (test tbaz=045) 300 mg/dL Negative GLUCOSE UA (BEAKER) (test tvqg=534) 30 mg/dL Negative KETONES UA (BEAKER) (test lrlh=739) Negative Negative BILIRUBIN UA (BEAKER) (test onyh=339) Negative Negative BLOOD UA (BEAKER) (test cpgx=308) Small Negative NITRITE UA (BEAKER) (test nvsu=228) Negative Negative LEUKOCYTE ESTERASE UA (BEAKER) (test fxyx=549) Small Negative UROBILINOGEN UA (BEAKER) (test wdmh=601) 0.2 mg/dL 0.2-1.0 RBC UA (BEAKER) (test pkbr=831) 2 /HPF WBC UA (BEAKER) (test hmck=591) 17 /HPF BACTERIA (BEAKER) (test nwya=753) Rare SQUAMOUS EPITHELIAL (BEAKER) (test vlfp=655) 2 /HPF CRYSTALS, URINE (BEAKER) (test evje=6860) Occasional AMORPHOUS CRYSTALS (BEAKER) (test xswb=5293) Rare SOURCE(BEAKER) (test ilmw=0815) [id number] 08:21:00* Test Item Value Reference Range Comments PHOSPHORUS (BEAKER) (test ezcm=555) 4.5 mg/dL 2.3-4.7 Specimen slightly hemolyzed CBC W/PLT COUNT & AUTO [id number] 06:59:00* Test Item Value Reference Range Comments WHITE BLOOD CELL COUNT (BEAKER) (test bmqd=116) 8.3 K/ L 4.0-10.0 RED BLOOD CELL COUNT (BEAKER) (test yyni=535) 3.61 M/ L 4.00-5.00 HEMOGLOBIN (BEAKER) (test qojv=981) 11.9 GM/DL 12.0-15.0 HEMATOCRIT (BEAKER) (test sbnq=882) 37.3 % 36.0-45.0 MEAN CORPUSCULAR VOLUME (BEAKER) (test ewbi=903) 103.0 fL 82.0-99.0 MEAN CORPUSCULAR HEMOGLOBIN (BEAKER) (test vdny=065) 32.8 pg 27.0-33.0 MEAN CORPUSCULAR HEMOGLOBIN CONC (BEAKER) (test gpuo=674) 31.8 GM/DL 32.0- 36.0 RED CELL DISTRIBUTION WIDTH (BEAKER) (test kbtq=748) 16.7 % 10.3-14.2 PLATELET COUNT (BEAKER) (test dfth=039) 175 K/CU MM 150-430 MEAN PLATELET VOLUME (BEAKER) (test kauw=021) 9.2 fL 6.5-10.5 NUCLEATED RED BLOOD CELLS (BEAKER) (test wfaq=336) 0 /100 WBC 0-0 NEUTROPHILS RELATIVE PERCENT (BEAKER) (test kwqf=741) 78 % LYMPHOCYTES RELATIVE PERCENT (BEAKER) (test wgxm=765) 5 % MONOCYTES RELATIVE PERCENT (BEAKER) (test sjtp=994) 12 % EOSINOPHILS RELATIVE PERCENT (BEAKER) (test ycdo=605) 4 % BASOPHILS RELATIVE PERCENT (BEAKER) (test jdcy=771) 1 % NEUTROPHILS ABSOLUTE COUNT (BEAKER) (test fbpt=366) 6.44 K/ L 1.80-8.00 LYMPHOCYTES ABSOLUTE COUNT (BEAKER) (test lgpv=321) 0.41 K/ L 1.48-4.50 MONOCYTES ABSOLUTE COUNT (BEAKER) (test shqn=307) 1.01 K/ L 0.00-1.30 EOSINOPHILS ABSOLUTE COUNT (BEAKER) (test bvvs=199) 0.31 K/ L 0.00-0.50 BASOPHILS ABSOLUTE COUNT (BEAKER) (test janw=936) 0.10 K/ L 0.00-0.20 0.00BASIC METABOLIC [id number] 05:41:00* Test Item Value Reference Range Comments SODIUM (BEAKER) (test qstw=651) 134 meq/L 136-145 POTASSIUM (BEAKER) (test kqey=805) 5.1 meq/L 3.5-5.1 CHLORIDE (BEAKER) (test kose=774) 94 meq/L 98-107 CO2 (BEAKER) (test ofhy=811) 23 meq/L 22-29 BLOOD UREA NITROGEN (BEAKER) (test ctwf=440) 67 mg/dL 7-21 CREATININE (BEAKER) (test zsjo=255) 7.06 mg/dL 0.57-1.25 GLUCOSE RANDOM (BEAKER) (test hxky=274) 103 mg/dL 70-105 CALCIUM (BEAKER) (test rdzx=745) 8.1 mg/dL 8.4-10.2 EGFR (BEAKER) (test axqn=5507) 6 mL/min/1.73 sq m ESTIMATED GFR IS NOT ACCURATE CREATININE CLEARANCE IN PREDICTING GLOMERULAR FILTRATION RATE. ESTIMATED GFR IS NOT APPLICABLE FOR DIALYSIS PATIENTS. PROTHROMBIN TIME/[id number] 05:20:00* Test Item Value Reference Range Comments PROTIME (BEAKER) (test hloz=100) 17.0 seconds 11.7-14.7 INR (BEAKER) (test xjyx=479) 1.4 <=5.9 RECOMMENDED COUMADIN/WARFARIN INR THERAPY RANGESSTANDARD DOSE: 2.0 - 3.0 Includes: PROPHYLAXIS for venous thrombosis, systemic embolization; TREATMENT for venous thrombosis and/or pulmonary embolus.HIGH RISK: Target INR is 2.5-3.5 for patients with mechanical heart valves.[id number] 18:07:00* Test Item Value Reference Range Comments POTASSIUM (BEAKER) (test yynl=165) 5.1 meq/L 3.5-5.1 Specimen slightly hemolyzed [id number] 09:31:00* Test Item Value Reference Range Comments ACTIVATED CLOTTING TIME (BEAKER) (test ljuj=368) [address] [facility] [address] [facility] [address] GLUCOSE-STAT [id number] 09:31:00* Test Item Value Reference Range Comments GLUCOSE RANDOM (BEAKER) (test qcth=317) 94 mg/dL 70-110 POTASSIUM-STAT [id number] 09:31:00* Test Item Value Reference Range Comments POTASSIUM (BEAKER) (test msoa=910) 4.2 meq/L 3.6-5.5 BLOOD GAS, [id number] 09:31:00* Test Item Value Reference Range Comments PH ARTERIAL (BEAKER) (test rtpi=633) 7.44 7.35-7.45 PCO2 ARTERIAL (BEAKER) (test hytn=526) 37 mmHg 35-45 PO2 ARTERIAL (BEAKER) (test xklt=662) 59 mmHg 80-90 O2 SATURATION ARTERIAL (BEAKER) (test uqzu=248) 91.7 % 96.0-97.0 HCO3 ARTERIAL (BEAKER) (test upku=839) 24 mmol/L 21-29 BASE EXCESS ARTERIAL (BEAKER) (test jyqx=912) 0.5 mmol/L -2.0-3.0 PATIENT TEMPERATURE (BEAKER) (test jxjt=3223) 37.0 C FIO2 (BEAKER) (test ozpd=0412) 100.0 % SODIUM NA-STAT [id number] 09:31:00* Test Item Value Reference Range Comments SODIUM (BEAKER) (test xybn=501) 134 meq/L 135-148 HGB/HCT (H&H) - STAT [id number] 09:31:00* Test Item Value Reference Range Comments HEMOGLOBIN (BEAKER) (test fwxk=444) 11.6 g/dL 12.0-15.0 HEMATOCRIT (BEAKER) (test qsau=234) 34.0 % 36.0-45.0 [id number] 05:31:00* Test Item Value Reference Range Comments PARTIAL THROMBOPLASTIN TIME (BEAKER) (test cbim=156) 35.0 seconds 22.5-36.0 Within 24 hours, if on CoumadinPROTHROMBIN TIME/[id number] 05:30:00* Test Item Value Reference Range Comments PROTIME (BEAKER) (test qheb=688) 16.8 seconds 11.7-14.7 INR (BEAKER) (test xjsz=538) 1.4 <=5.9 RECOMMENDED COUMADIN/WARFARIN INR THERAPY RANGESSTANDARD DOSE: 2.0 - 3.0 Includes: PROPHYLAXIS for venous thrombosis, systemic embolization; TREATMENT for venous thrombosis and/or pulmonary embolus.HIGH RISK: Target INR is 2.5-3.5 for patients with mechanical heart valves.Within 24 hours, if on CoumadinCOMPREHENSIVE METABOLIC [id number] 07:22:00* Test Item Value Reference Range Comments TOTAL PROTEIN (BEAKER) (test xynn=721) 6.7 gm/dL 6.0-8.3 ALBUMIN (BEAKER) (test ptvw=6490) 3.4 g/dL 3.5-5.0 ALKALINE PHOSPHATASE (BEAKER) (test wyrt=850) 173 U/L 40-150 BILIRUBIN TOTAL (BEAKER) (test lvnx=912) 1.2 mg/dL 0.2-1.2 SODIUM (BEAKER) (test ixoa=594) 137 meq/L 136-145 POTASSIUM (BEAKER) (test yxpo=299) 4.4 meq/L 3.5-5.1 CHLORIDE (BEAKER) (test uiij=095) 98 meq/L 98-107 CO2 (BEAKER) (test ewzp=936) 25 meq/L 22-29 BLOOD UREA NITROGEN (BEAKER) (test eycn=418) 31 mg/dL 7-21 CREATININE (BEAKER) (test tsni=951) 4.84 mg/dL 0.57-1.25 GLUCOSE RANDOM (BEAKER) (test tyhp=752) 81 mg/dL 70-105 CALCIUM (BEAKER) (test dyuc=121) 8.5 mg/dL 8.4-10.2 AST (SGOT) (BEAKER) (test qwpc=266) 25 U/L 5-34 ALT (SGPT) (BEAKER) (test wqvz=797) 12 U/L 6-55 EGFR (BEAKER) (test pixd=5102) 9 mL/min/1.73 sq m ESTIMATED GFR IS NOT ACCURATE CREATININE CLEARANCE IN PREDICTING GLOMERULAR FILTRATION RATE. ESTIMATED GFR IS NOT APPLICABLE FOR DIALYSIS PATIENTS. CBC W/PLT COUNT & AUTO [id number] 07:22:00* Test Item Value Reference Range Comments WHITE BLOOD CELL COUNT (BEAKER) (test xrug=647) 7.5 K/ L 4.0-10.0 RED BLOOD CELL COUNT (BEAKER) (test seeo=121) 3.68 M/ L 4.00-5.00 HEMOGLOBIN (BEAKER) (test fkru=004) 12.2 GM/DL 12.0-15.0 HEMATOCRIT (BEAKER) (test qtkb=613) 38.3 % 36.0-45.0 MEAN CORPUSCULAR VOLUME (BEAKER) (test xnvu=235) 104.0 fL 82.0-99.0 MEAN CORPUSCULAR HEMOGLOBIN (BEAKER) (test nwle=955) 33.1 pg 27.0-33.0 MEAN CORPUSCULAR HEMOGLOBIN CONC (BEAKER) (test iezq=214) 31.7 GM/DL 32.0- 36.0 RED CELL DISTRIBUTION WIDTH (BEAKER) (test nrsw=209) 16.9 % 10.3-14.2 PLATELET COUNT (BEAKER) (test vbxs=208) 174 K/CU MM 150-430 MEAN PLATELET VOLUME (BEAKER) (test sasu=825) 8.9 fL 6.5-10.5 NUCLEATED RED BLOOD CELLS (BEAKER) (test qbmm=692) 0 /100 WBC 0-0 NEUTROPHILS RELATIVE PERCENT (BEAKER) (test cfgs=875) 79 % LYMPHOCYTES RELATIVE PERCENT (BEAKER) (test jijt=634) 6 % MONOCYTES RELATIVE PERCENT (BEAKER) (test uuqq=357) 11 % EOSINOPHILS RELATIVE PERCENT (BEAKER) (test oljf=505) 3 % BASOPHILS RELATIVE PERCENT (BEAKER) (test jymu=297) 1 % NEUTROPHILS ABSOLUTE COUNT (BEAKER) (test olob=055) 5.93 K/ L 1.80-8.00 LYMPHOCYTES ABSOLUTE COUNT (BEAKER) (test tqyb=783) 0.44 K/ L 1.48-4.50 MONOCYTES ABSOLUTE COUNT (BEAKER) (test fiuw=806) 0.82 K/ L 0.00-1.30 EOSINOPHILS ABSOLUTE COUNT (BEAKER) (test eqpk=653) 0.25 K/ L 0.00-0.50 BASOPHILS ABSOLUTE COUNT (BEAKER) (test jgcm=557) 0.09 K/ L 0.00-0.20 [id number] 06:59:00* Test Item Value Reference Range Comments PHOSPHORUS (BEAKER) (test twbc=858) 3.0 mg/dL 2.3-4.7 PROTHROMBIN TIME/[id number] 06:55:00* Test Item Value Reference Range Comments PROTIME (BEAKER) (test lfwa=843) 18.1 seconds 11.7-14.7 INR (BEAKER) (test amaw=326) 1.5 <=5.9 RECOMMENDED COUMADIN/WARFARIN INR THERAPY RANGESSTANDARD DOSE: 2.0 - 3.0 Includes: PROPHYLAXIS for venous thrombosis, systemic embolization; TREATMENT for venous thrombosis and/or pulmonary embolus.HIGH RISK: Target INR is 2.5-3.5 for patients with mechanical heart valves.BASIC METABOLIC [id number] 07:30: 00* Test Item Value Reference Range Comments SODIUM (BEAKER) (test dxoy=154) 133 meq/L 136-145 POTASSIUM (BEAKER) (test uyzo=265) 4.2 meq/L 3.5-5.1 CHLORIDE (BEAKER) (test jppv=708) 96 meq/L 98-107 CO2 (BEAKER) (test gpto=123) 21 meq/L 22-29 BLOOD UREA NITROGEN (BEAKER) (test ehco=152) 44 mg/dL 7-21 CREATININE (BEAKER) (test ncjo=452) 6.10 mg/dL 0.57-1.25 GLUCOSE RANDOM (BEAKER) (test jxgi=645) 86 mg/dL 70-105 CALCIUM (BEAKER) (test unjy=217) 8.1 mg/dL 8.4-10.2 EGFR (BEAKER) (test quuz=2949) 7 mL/min/1.73 sq m ESTIMATED GFR IS NOT ACCURATE CREATININE CLEARANCE IN PREDICTING GLOMERULAR FILTRATION RATE. ESTIMATED GFR IS NOT APPLICABLE FOR DIALYSIS PATIENTS. [id number] 07:26:00* Test Item Value Reference Range Comments PHOSPHORUS (BEAKER) (test gmur=872) 3.7 mg/dL 2.3-4.7 PROTHROMBIN TIME/[id number] 07:14:00* Test Item Value Reference Range Comments PROTIME (BEAKER) (test xlzm=875) 21.8 seconds 11.7-14.7 INR (BEAKER) (test revv=163) 1.9 <=5.9 RECOMMENDED COUMADIN/WARFARIN INR THERAPY RANGESSTANDARD DOSE: 2.0 - 3.0 Includes: PROPHYLAXIS for venous thrombosis, systemic embolization; TREATMENT for venous thrombosis and/or pulmonary embolus.HIGH RISK: Target INR is 2.5-3.5 for patients with mechanical heart valves.CBC W/PLT COUNT & AUTO [id number] 07:10:00* Test Item Value Reference Range Comments WHITE BLOOD CELL COUNT (BEAKER) (test mxht=735) 8.7 K/ L 4.0-10.0 RED BLOOD CELL COUNT (BEAKER) (test ftzl=656) 3.63 M/ L 4.00-5.00 HEMOGLOBIN (BEAKER) (test cray=931) 12.0 GM/DL 12.0-15.0 HEMATOCRIT (BEAKER) (test galu=891) 37.6 % 36.0-45.0 MEAN CORPUSCULAR VOLUME (BEAKER) (test abpw=079) 104.0 fL 82.0-99.0 MEAN CORPUSCULAR HEMOGLOBIN (BEAKER) (test cjti=288) 33.2 pg 27.0-33.0 MEAN CORPUSCULAR HEMOGLOBIN CONC (BEAKER) (test xfeb=242) 32.0 GM/DL 32.0- 36.0 RED CELL DISTRIBUTION WIDTH (BEAKER) (test zjrk=303) 16.7 % 10.3-14.2 PLATELET COUNT (BEAKER) (test yaeg=138) 182 K/CU MM 150-430 MEAN PLATELET VOLUME (BEAKER) (test rgpc=039) 8.9 fL 6.5-10.5 NUCLEATED RED BLOOD CELLS (BEAKER) (test jyje=504) 0 /100 WBC 0-0 NEUTROPHILS RELATIVE PERCENT (BEAKER) (test kutf=925) 81 % LYMPHOCYTES RELATIVE PERCENT (BEAKER) (test ubyz=136) 5 % MONOCYTES RELATIVE PERCENT (BEAKER) (test cfbn=599) 10 % EOSINOPHILS RELATIVE PERCENT (BEAKER) (test lavf=259) 4 % BASOPHILS RELATIVE PERCENT (BEAKER) (test etfj=777) 1 % NEUTROPHILS ABSOLUTE COUNT (BEAKER) (test hwie=517) 7.05 K/ L 1.80-8.00 LYMPHOCYTES ABSOLUTE COUNT (BEAKER) (test bnvy=230) 0.43 K/ L 1.48-4.50 MONOCYTES ABSOLUTE COUNT (BEAKER) (test bhib=087) 0.88 K/ L 0.00-1.30 EOSINOPHILS ABSOLUTE COUNT (BEAKER) (test gqop=191) 0.33 K/ L 0.00-0.50 BASOPHILS ABSOLUTE COUNT (BEAKER) (test arsl=715) 0.06 K/ L 0.00-0.20 0.00BASIC METABOLIC [id number] 05:24:00* Test Item Value Reference Range Comments SODIUM (BEAKER) (test tyfl=810) 136 meq/L 136-145 POTASSIUM (BEAKER) (test ixvg=588) 4.2 meq/L 3.5-5.1 CHLORIDE (BEAKER) (test utpz=041) 98 meq/L 98-107 CO2 (BEAKER) (test yfvy=220) 25 meq/L 22-29 BLOOD UREA NITROGEN (BEAKER) (test jykf=062) 33 mg/dL 7-21 CREATININE (BEAKER) (test xjwx=936) 5.02 mg/dL 0.57-1.25 GLUCOSE RANDOM (BEAKER) (test cqfi=064) 113 mg/dL 70-105 CALCIUM (BEAKER) (test zsdx=490) 8.7 mg/dL 8.4-10.2 EGFR (BEAKER) (test dxpe=0119) 9 mL/min/1.73 sq m ESTIMATED GFR IS NOT ACCURATE CREATININE CLEARANCE IN PREDICTING GLOMERULAR FILTRATION RATE. ESTIMATED GFR IS NOT APPLICABLE FOR DIALYSIS PATIENTS. [id number] 05:20:00* Test Item Value Reference Range Comments PHOSPHORUS (BEAKER) (test xtpx=414) 3.9 mg/dL 2.3-4.7 PROTHROMBIN TIME/[id number] 05:08:00* Test Item Value Reference Range Comments PROTIME (BEAKER) (test uvmi=444) 24.3 seconds 11.7-14.7 INR (BEAKER) (test umxn=757) 2.2 <=5.9 RECOMMENDED COUMADIN/WARFARIN INR THERAPY RANGESSTANDARD DOSE: 2.0 - 3.0 Includes: PROPHYLAXIS for venous thrombosis, systemic embolization; TREATMENT for venous thrombosis and/or pulmonary embolus.HIGH RISK: Target INR is 2.5-3.5 for patients with mechanical heart valves.TROPONIN [id number] 07:27:00* Test Item Value Reference Range Comments TROPONIN I (BEAKER) (test bkpu=921) 0.09 ng/mL 0.00-0.03 Effective 04/25/2014: Reference Range ChangeNew: 0.00-0.03 Previous 0.00- 0.15Troponin I (TnI) levels must be interpreted in the context of the presenting symptoms and the clinical findings. Elevated TnI levels indicate myocardial damage, but are not specific for ischemic heart disease. Elevated TnI levels are seen in patients with other cardiac conditions (including myocarditis and congestive heart failure), and slight TnI elevations occur in patients with other conditions, including sepsis, renal failure, acidosis, acute neurological disease, and persistent tachyarrhythmia.BASIC METABOLIC [id number] 07:21:00* Test Item Value Reference Range Comments SODIUM (BEAKER) (test ehzf=030) 135 meq/L 136-145 POTASSIUM (BEAKER) (test cfis=880) 4.4 meq/L 3.5-5.1 CHLORIDE (BEAKER) (test nyvx=184) 95 meq/L 98-107 CO2 (BEAKER) (test byey=053) 26 meq/L 22-29 BLOOD UREA NITROGEN (BEAKER) (test yurd=503) 41 mg/dL 7-21 CREATININE (BEAKER) (test dvyo=835) 5.88 mg/dL 0.57-1.25 GLUCOSE RANDOM (BEAKER) (test dxoe=122) 113 mg/dL 70-105 CALCIUM (BEAKER) (test aovx=672) 9.0 mg/dL 8.4-10.2 EGFR (BEAKER) (test ovsq=2203) 7 mL/min/1.73 sq m ESTIMATED GFR IS NOT ACCURATE CREATININE CLEARANCE IN PREDICTING GLOMERULAR FILTRATION RATE. ESTIMATED GFR IS NOT APPLICABLE FOR DIALYSIS PATIENTS. [id number] 07:19:00* Test Item Value Reference Range Comments PHOSPHORUS (BEAKER) (test sbjk=569) 3.8 mg/dL 2.3-4.7 [id number] 07:19:00* Test Item Value Reference Range Comments MAGNESIUM (BEAKER) (test jmii=610) 2.1 mg/dL 1.6-2.6 CREATINE KINASE (CK), TOTAL AND [id number] 00:39:00* Test Item Value Reference Range Comments CREATINE KINASE TOTAL (BEAKER) (test bhmx=799) 58 U/L 29-200 CREATINE KINASE-MB (BEAKER) (test kqjo=913) 1.4 ng/mL 0.0-6.6 CREATINE KINASE-MB INDEX (BEAKER) (test nbht=449) 2.4 % Effective 04/25/2014: CK-MB Reference Range ChangeNew: 0.0-6.6 Previous: 0.0- 4.9CK-MB Reference Range:<6.7 Normal6.7-10.0 Borderline>10.0 AbnormalTROPONIN [id number] 00:39:00* Test Item Value Reference Range Comments TROPONIN I (BEAKER) (test hrza=353) 0.09 ng/mL 0.00-0.03 Effective 04/25/2014: Reference Range ChangeNew: 0.00-0.03 Previous 0.00- 0.15Troponin I (TnI) levels must be interpreted in the context of the presenting symptoms and the clinical findings. Elevated TnI levels indicate myocardial damage, but are not specific for ischemic heart disease. Elevated TnI levels are seen in patients with other cardiac conditions (including myocarditis and congestive heart failure), and slight TnI elevations occur in patients with other conditions, including sepsis, renal failure, acidosis, acute neurological disease, and persistent tachyarrhythmia.B-TYPE NATRIURETIC FACTOR (BNP)2016-12-07 19:57:00* Test Item Value Reference Range Comments B-TYPE NATRIURETIC PEPTIDE (BEAKER) (test opwn=235) 39737 pg/mL 0-100 CREATINE KINASE (CK), TOTAL AND [id number] 19:38:00* Test Item Value Reference Range Comments CREATINE KINASE TOTAL (BEAKER) (test sdgn=363) 70 U/L 29-200 CREATINE KINASE-MB (BEAKER) (test chpa=222) 1.9 ng/mL 0.0-6.6 CREATINE KINASE-MB INDEX (BEAKER) (test zshe=136) 2.7 % Effective 04/25/2014: CK-MB Reference Range ChangeNew: 0.0-6.6 Previous: 0.0- 4.9CK-MB Reference Range:<6.7 Normal6.7-10.0 Borderline>10.0 AbnormalTROPONIN [id number] 19:38:00* Test Item Value Reference Range Comments TROPONIN I (BEAKER) (test jkmx=797) 0.11 ng/mL 0.00-0.03 Effective 04/25/2014: Reference Range ChangeNew: 0.00-0.03 Previous 0.00- 0.15Troponin I (TnI) levels must be interpreted in the context of the presenting symptoms and the clinical findings. Elevated TnI levels indicate myocardial damage, but are not specific for ischemic heart disease. Elevated TnI levels are seen in patients with other cardiac conditions (including myocarditis and congestive heart failure), and slight TnI elevations occur in patients with other conditions, including sepsis, renal failure, acidosis, acute neurological disease, and persistent tachyarrhythmia.[id number] 19:33:00* Test Item Value Reference Range Comments MAGNESIUM (BEAKER) (test gowh=281) 2.1 mg/dL 1.6-2.6 HEPATIC FUNCTION [id number] 19:33:00* Test Item Value Reference Range Comments TOTAL PROTEIN (BEAKER) (test mlcs=441) 7.3 gm/dL 6.0-8.3 ALBUMIN (BEAKER) (test dwrh=7349) 3.7 g/dL 3.5-5.0 BILIRUBIN TOTAL (BEAKER) (test ozeh=342) 1.2 mg/dL 0.2-1.2 BILIRUBIN DIRECT (BEAKER) (test bpfh=900) 0.7 mg/dL 0.1-0.5 ALKALINE PHOSPHATASE (BEAKER) (test emwp=093) 169 U/L 40-150 AST (SGOT) (BEAKER) (test dwkp=463) 25 U/L 5-34 ALT (SGPT) (BEAKER) (test yjzn=179) 13 U/L 6-55 BASIC METABOLIC [id number] 19:33:00* Test Item Value Reference Range Comments SODIUM (BEAKER) (test lgdh=952) 139 meq/L 136-145 POTASSIUM (BEAKER) (test nggu=837) 4.1 meq/L 3.5-5.1 CHLORIDE (BEAKER) (test egnh=595) 94 meq/L 98-107 CO2 (BEAKER) (test awfh=493) 31 meq/L 22-29 BLOOD UREA NITROGEN (BEAKER) (test zwaw=998) 34 mg/dL 7-21 CREATININE (BEAKER) (test cbxe=603) 5.36 mg/dL 0.57-1.25 GLUCOSE RANDOM (BEAKER) (test kydl=590) 97 mg/dL 70-105 CALCIUM (BEAKER) (test ikkg=793) 9.6 mg/dL 8.4-10.2 EGFR (BEAKER) (test qmlo=4023) 8 mL/min/1.73 sq m ESTIMATED GFR IS NOT ACCURATE CREATININE CLEARANCE IN PREDICTING GLOMERULAR FILTRATION RATE. ESTIMATED GFR IS NOT APPLICABLE FOR DIALYSIS PATIENTS. PT/[id number] 19:29:00* Test Item Value Reference Range Comments PROTIME (BEAKER) (test lgnf=632) 32.2 seconds 11.7-14.7 INR (BEAKER) (test apfh=381) 3.1 <=5.9 PARTIAL THROMBOPLASTIN TIME (BEAKER) (test nwli=533) 53.8 seconds 22.5-36.0 RECOMMENDED COUMADIN/WARFARIN INR THERAPY RANGESSTANDARD DOSE: 2.0 - 3.0 Includes: PROPHYLAXIS for venous thrombosis, systemic embolization; TREATMENT for venous thrombosis and/or pulmonary embolus.HIGH RISK: Target INR is 2.5-3.5 for patients with mechanical heart valves.[id number] 19:24:00* Test Item Value Reference Range Comments AMMONIA (BEAKER) (test vmcx=395) 31 mol/L 18-72 CBC W/PLT COUNT & AUTO [id number] 19:22:00* Test Item Value Reference Range Comments WHITE BLOOD CELL COUNT (BEAKER) (test pgmm=194) 7.1 K/ L 4.0-10.0 RED BLOOD CELL COUNT (BEAKER) (test qgkp=401) 3.89 M/ L 4.00-5.00 HEMOGLOBIN (BEAKER) (test juet=016) 13.7 GM/DL 12.0-15.0 HEMATOCRIT (BEAKER) (test jvjw=325) 40.5 % 36.0-45.0 MEAN CORPUSCULAR VOLUME (BEAKER) (test lduw=209) 104.0 fL 82.0-99.0 MEAN CORPUSCULAR HEMOGLOBIN (BEAKER) (test ypbg=964) 35.2 pg 27.0-33.0 MEAN CORPUSCULAR HEMOGLOBIN CONC (BEAKER) (test suki=252) 33.8 GM/DL 32.0- 36.0 RED CELL DISTRIBUTION WIDTH (BEAKER) (test vaqz=466) 16.8 % 10.3-14.2 PLATELET COUNT (BEAKER) (test upls=984) 168 K/CU MM 150-430 MEAN PLATELET VOLUME (BEAKER) (test bkme=280) 9.0 fL 6.5-10.5 NUCLEATED RED BLOOD CELLS (BEAKER) (test sbep=769) 0 /100 WBC 0-0 NEUTROPHILS RELATIVE PERCENT (BEAKER) (test mijj=270) 78 % LYMPHOCYTES RELATIVE PERCENT (BEAKER) (test tuib=686) 6 % MONOCYTES RELATIVE PERCENT (BEAKER) (test aaur=417) 11 % EOSINOPHILS RELATIVE PERCENT (BEAKER) (test whmu=457) 4 % BASOPHILS RELATIVE PERCENT (BEAKER) (test ndfw=010) 1 % NEUTROPHILS ABSOLUTE COUNT (BEAKER) (test wpsy=675) 5.59 K/ L 1.80-8.00 LYMPHOCYTES ABSOLUTE COUNT (BEAKER) (test mujg=597) 0.43 K/ L 1.48-4.50 MONOCYTES ABSOLUTE COUNT (BEAKER) (test tuxw=899) 0.77 K/ L 0.00-1.30 EOSINOPHILS ABSOLUTE COUNT (BEAKER) (test bglg=100) 0.26 K/ L 0.00-0.50 BASOPHILS ABSOLUTE COUNT (BEAKER) (test opej=990) 0.09 K/ L 0.00-0.20 0.00CBC W/PLT COUNT & AUTO [id number] 19:43:00* Test Item Value Reference Range Comments WHITE BLOOD CELL COUNT (BEAKER) (test wyee=278) 7.5 K/ L 4.0-10.0 RED BLOOD CELL COUNT (BEAKER) (test muty=775) 3.77 M/ L 4.00-5.00 HEMOGLOBIN (BEAKER) (test evhe=571) 12.6 GM/DL 12.0-15.0 HEMATOCRIT (BEAKER) (test rbrg=013) 39.1 % 36.0-45.0 MEAN CORPUSCULAR VOLUME (BEAKER) (test fklp=072) 104.0 fL 82.0-99.0 MEAN CORPUSCULAR HEMOGLOBIN (BEAKER) (test nsls=890) 33.3 pg 27.0-33.0 MEAN CORPUSCULAR HEMOGLOBIN CONC (BEAKER) (test ktjr=195) 32.2 GM/DL 32.0- 36.0 RED CELL DISTRIBUTION WIDTH (BEAKER) (test yyxh=295) 16.8 % 10.3-14.2 PLATELET COUNT (BEAKER) (test vkri=942) 158 K/CU MM 150-430 MEAN PLATELET VOLUME (BEAKER) (test wmnc=968) 9.0 fL 6.5-10.5 NUCLEATED RED BLOOD CELLS (BEAKER) (test llff=105) 0 /100 WBC 0-0 0.000.510.000.000.000.000.000.00(MANUAL DIFFERENTIAL)2016-12-06 19:43:00* Test Item Value Reference Range Comments NEUTROPHILS - REL (DIFF) (BEAKER) (test sjkq=5931) 83 % LYMPHOCYTES - REL (DIFF) (BEAKER) (test emyt=4933) 3 % MONOCYTES - REL (DIFF) (BEAKER) (test syoa=4917) 10 % EOSINOPHILS - REL (DIFF) (BEAKER) (test hrjm=1193) 3 % BASOPHILS - REL (DIFF) (BEAKER) (test ofdw=9307) 1 % NEUTROPHILS - ABS (DIFF) (BEAKER) (test pizb=6937) 6.23 K/ L 1.80-8.00 LYMPHOCYTES - ABS (DIFF) (BEAKER) (test qrze=8185) 0.23 K/ L 1.48-4.50 MONOCYTES - ABS (DIFF) (BEAKER) (test xurf=2884) 0.75 K/ L 0.00-1.30 EOSINOPHILS - ABS (DIFF) (BEAKER) (test skqp=4218) 0.23 K/ L 0.00-0.50 BASOPHILS - ABS (DIFF) (BEAKER) (test lwvm=7665) 0.08 K/ L 0.00-0.20 TOTAL COUNTED (BEAKER) (test xpie=7754) 100 WBC MORPHOLOGY (BEAKER) (test ffsp=763) Normal PLT MORPHOLOGY (BEAKER) (test ptcn=188) Normal RBC MORPHOLOGY (BEAKER) (test bpwk=422) Normal [id number] 11:40:00* Test Item Value Reference Range Comments THYROID STIMULATING HORMONE (BEAKER) (test dvmx=693) 97.37 uIU/mL 0.35-4.94 T4, [id number] 11:38:00* Test Item Value Reference Range Comments FREE T4 (BEAKER) (test ktkb=777) 1.05 ng/dL 0.70-1.48 [id number] 11:38:00* Test Item Value Reference Range Comments T3 TOTAL (BEAKER) (test rlao=768) 33 ng/dL 48-159 Effective 04/25/2014: Reference Range ChangeNew: 48-159 Previous: 60-181BASIC METABOLIC [id number] 09:54:00* Test Item Value Reference Range Comments SODIUM (BEAKER) (test jsef=092) 133 meq/L 136-145 POTASSIUM (BEAKER) (test pydj=340) 4.3 meq/L 3.5-5.1 CHLORIDE (BEAKER) (test yjhh=070) 96 meq/L 98-107 CO2 (BEAKER) (test hfzl=034) 25 meq/L 22-29 BLOOD UREA NITROGEN (BEAKER) (test uorx=577) 34 mg/dL 7-21 CREATININE (BEAKER) (test lyyz=901) 5.56 mg/dL 0.57-1.25 GLUCOSE RANDOM (BEAKER) (test ymbj=312) 81 mg/dL 70-105 CALCIUM (BEAKER) (test hozf=571) 8.6 mg/dL 8.4-10.2 EGFR (BEAKER) (test qkcq=8758) 8 mL/min/1.73 sq m ESTIMATED GFR IS NOT ACCURATE CREATININE CLEARANCE IN PREDICTING GLOMERULAR FILTRATION RATE. ESTIMATED GFR IS NOT APPLICABLE FOR DIALYSIS PATIENTS. PROTHROMBIN TIME/[id number] 09:52:00* Test Item Value Reference Range Comments PROTIME (BEAKER) (test qiln=293) 36.0 seconds 11.7-14.7 INR (BEAKER) (test xzmc=939) 3.6 <=5.9 RECOMMENDED COUMADIN/WARFARIN INR THERAPY RANGESSTANDARD DOSE: 2.0 - 3.0 Includes: PROPHYLAXIS for venous thrombosis, systemic embolization; TREATMENT for venous thrombosis and/or pulmonary embolus.HIGH RISK: Target INR is 2.5-3.5 for patients with mechanical heart valves.[id number] 09:38:00* Test Item Value Reference Range Comments PHOSPHORUS (BEAKER) (test dbtf=208) 4.4 mg/dL 2.3-4.7 [id number] 09:38:00* Test Item Value Reference Range Comments MAGNESIUM (BEAKER) (test ntct=200) 1.9 mg/dL 1.6-2.6 BASIC METABOLIC [id number] 09:43:00* Test Item Value Reference Range Comments SODIUM (BEAKER) (test punn=543) 131 meq/L 136-145 POTASSIUM (BEAKER) (test jtwe=573) 4.7 meq/L 3.5-5.1 CHLORIDE (BEAKER) (test cbky=870) 94 meq/L 98-107 CO2 (BEAKER) (test dlmx=050) 22 meq/L 22-29 BLOOD UREA NITROGEN (BEAKER) (test iomi=722) 47 mg/dL 7-21 CREATININE (BEAKER) (test fqlw=544) 6.73 mg/dL 0.57-1.25 GLUCOSE RANDOM (BEAKER) (test iios=239) 70 mg/dL 70-105 CALCIUM (BEAKER) (test woxc=070) 8.5 mg/dL 8.4-10.2 EGFR (BEAKER) (test gopf=9632) 6 mL/min/1.73 sq m ESTIMATED GFR IS NOT ACCURATE CREATININE CLEARANCE IN PREDICTING GLOMERULAR FILTRATION RATE. ESTIMATED GFR IS NOT APPLICABLE FOR DIALYSIS PATIENTS. [id number] 09:36:00* Test Item Value Reference Range Comments PHOSPHORUS (BEAKER) (test hrsz=781) 5.4 mg/dL 2.3-4.7 [id number] 09:36:00* Test Item Value Reference Range Comments MAGNESIUM (BEAKER) (test uspd=240) 1.9 mg/dL 1.6-2.6 CBC W/PLT COUNT & AUTO [id number] 09:25:00* Test Item Value Reference Range Comments WHITE BLOOD CELL COUNT (BEAKER) (test cpyw=003) 6.8 K/ L 4.0-10.0 RED BLOOD CELL COUNT (BEAKER) (test sxmn=300) 3.82 M/ L 4.00-5.00 HEMOGLOBIN (BEAKER) (test zvqw=748) 12.4 GM/DL 12.0-15.0 HEMATOCRIT (BEAKER) (test rthk=105) 39.2 % 36.0-45.0 MEAN CORPUSCULAR VOLUME (BEAKER) (test yrfz=492) 103.0 fL 82.0-99.0 MEAN CORPUSCULAR HEMOGLOBIN (BEAKER) (test avwt=408) 32.5 pg 27.0-33.0 MEAN CORPUSCULAR HEMOGLOBIN CONC (BEAKER) (test metu=697) 31.7 GM/DL 32.0- 36.0 RED CELL DISTRIBUTION WIDTH (BEAKER) (test wmxh=787) 18.0 % 10.3-14.2 PLATELET COUNT (BEAKER) (test xtvz=062) 156 K/CU MM 150-430 MEAN PLATELET VOLUME (BEAKER) (test kocm=707) 9.5 fL 6.5-10.5 NUCLEATED RED BLOOD CELLS (BEAKER) (test patd=504) 0 /100 WBC 0-0 NEUTROPHILS RELATIVE PERCENT (BEAKER) (test xicq=634) 80 % LYMPHOCYTES RELATIVE PERCENT (BEAKER) (test pomm=785) 5 % MONOCYTES RELATIVE PERCENT (BEAKER) (test vgsi=434) 11 % EOSINOPHILS RELATIVE PERCENT (BEAKER) (test ylkq=444) 3 % BASOPHILS RELATIVE PERCENT (BEAKER) (test edwp=430) 1 % NEUTROPHILS ABSOLUTE COUNT (BEAKER) (test ztxz=929) 5.46 K/ L 1.80-8.00 LYMPHOCYTES ABSOLUTE COUNT (BEAKER) (test zric=876) 0.31 K/ L 1.48-4.50 MONOCYTES ABSOLUTE COUNT (BEAKER) (test yceu=933) 0.77 K/ L 0.00-1.30 EOSINOPHILS ABSOLUTE COUNT (BEAKER) (test mtzd=617) 0.22 K/ L 0.00-0.50 BASOPHILS ABSOLUTE COUNT (BEAKER) (test lkyz=403) 0.05 K/ L 0.00-0.20 0.00PROTHROMBIN [id number] 09:11:00* Test Item Value Reference Range Comments PROTIME (BEAKER) (test xuzt=372) 31.0 seconds 11.7-14.7 INR (BEAKER) (test ayoe=545) 3.0 <=5.9 RECOMMENDED COUMADIN/WARFARIN INR THERAPY RANGESSTANDARD DOSE: 2.0 - 3.0 Includes: PROPHYLAXIS for venous thrombosis, systemic embolization; TREATMENT for venous thrombosis and/or pulmonary embolus.HIGH RISK: Target INR is 2.5-3.5 for patients with mechanical heart valves.While on warfarin.TSH/FREE T4 IF [id number] 17:54:00* Test Item Value Reference Range Comments THYROID STIMULATING HORMONE (BEAKER) (test dgjv=224) 125.33 uIU/mL 0.35-4.94 T4, [id number] 17:49:00* Test Item Value Reference Range Comments FREE T4 (BEAKER) (test mvyf=980) 0.84 ng/dL 0.70-1.48 T3, [id number] 17:16:00* Test Item Value Reference Range Comments T3 FREE (BEAKER) (test ynob=116) < pg/mL 1.71-3.71 [id number] 17:15:00* Test Item Value Reference Range Comments T3 TOTAL (BEAKER) (test ldpx=482) < ng/dL 48-159 Effective 04/25/2014: Reference Range ChangeNew: 48-159 Previous: 60-181CBC W/ PLT COUNT & AUTO [id number] 09:59:00* Test Item Value Reference Range Comments WHITE BLOOD CELL COUNT (BEAKER) (test rmto=595) 7.1 K/ L 4.0-10.0 RED BLOOD CELL COUNT (BEAKER) (test shrv=630) 3.71 M/ L 4.00-5.00 HEMOGLOBIN (BEAKER) (test ezvb=711) 12.3 GM/DL 12.0-15.0 HEMATOCRIT (BEAKER) (test cktc=657) 38.8 % 36.0-45.0 MEAN CORPUSCULAR VOLUME (BEAKER) (test zytb=203) 105.0 fL 82.0-99.0 MEAN CORPUSCULAR HEMOGLOBIN (BEAKER) (test fecg=323) 33.2 pg 27.0-33.0 MEAN CORPUSCULAR HEMOGLOBIN CONC (BEAKER) (test ugcq=257) 31.8 GM/DL 32.0- 36.0 RED CELL DISTRIBUTION WIDTH (BEAKER) (test fawr=339) 16.9 % 10.3-14.2 PLATELET COUNT (BEAKER) (test yeuq=534) 142 K/CU MM 150-430 MEAN PLATELET VOLUME (BEAKER) (test lxhb=667) 9.2 fL 6.5-10.5 NUCLEATED RED BLOOD CELLS (BEAKER) (test nhwj=146) 0 /100 WBC 0-0 NEUTROPHILS RELATIVE PERCENT (BEAKER) (test glkl=739) 78 % LYMPHOCYTES RELATIVE PERCENT (BEAKER) (test cfko=460) 5 % MONOCYTES RELATIVE PERCENT (BEAKER) (test jbya=982) 12 % EOSINOPHILS RELATIVE PERCENT (BEAKER) (test neaa=733) 3 % BASOPHILS RELATIVE PERCENT (BEAKER) (test bijz=623) 1 % NEUTROPHILS ABSOLUTE COUNT (BEAKER) (test zceg=767) 5.53 K/ L 1.80-8.00 LYMPHOCYTES ABSOLUTE COUNT (BEAKER) (test qmpi=733) 0.34 K/ L 1.48-4.50 MONOCYTES ABSOLUTE COUNT (BEAKER) (test xelr=624) 0.87 K/ L 0.00-1.30 EOSINOPHILS ABSOLUTE COUNT (BEAKER) (test ioag=919) 0.24 K/ L 0.00-0.50 BASOPHILS ABSOLUTE COUNT (BEAKER) (test zkvw=656) 0.07 K/ L 0.00-0.20 0.00(MANUAL DIFFERENTIAL)2016-12-04 09:59:00* Test Item Value Reference Range Comments TOTAL COUNTED (BEAKER) (test ijrk=0403) WBC MORPHOLOGY (BEAKER) (test gklg=578) Normal PLT MORPHOLOGY (BEAKER) (test ftii=700) Normal POLYCHROMATOPHILLIC RBCS(BEAKER) (test ptyb=271) 1+ few BASIC METABOLIC [id number] 06:36:00* Test Item Value Reference Range Comments SODIUM (BEAKER) (test vpda=140) 134 meq/L 136-145 POTASSIUM (BEAKER) (test uinq=529) 4.5 meq/L 3.5-5.1 CHLORIDE (BEAKER) (test izdh=585) 96 meq/L 98-107 CO2 (BEAKER) (test tiwi=854) 26 meq/L 22-29 BLOOD UREA NITROGEN (BEAKER) (test mpec=916) 35 mg/dL 7-21 CREATININE (BEAKER) (test vaee=741) 5.86 mg/dL 0.57-1.25 GLUCOSE RANDOM (BEAKER) (test oajf=535) 96 mg/dL 70-105 CALCIUM (BEAKER) (test iiwn=314) 8.7 mg/dL 8.4-10.2 EGFR (BEAKER) (test ljyn=8071) 7 mL/min/1.73 sq m ESTIMATED GFR IS NOT ACCURATE CREATININE CLEARANCE IN PREDICTING GLOMERULAR FILTRATION RATE. ESTIMATED GFR IS NOT APPLICABLE FOR DIALYSIS PATIENTS. [id number] 06:34:00* Test Item Value Reference Range Comments PHOSPHORUS (BEAKER) (test wdav=865) 5.0 mg/dL 2.3-4.7 PROTHROMBIN [id number] 06:24:00* Test Item Value Reference Range Comments PROTIME (BEAKER) (test voxh=330) 25.7 seconds 11.7-14.7 INR (BEAKER) (test dlfw=750) 2.3 <=5.9 RECOMMENDED COUMADIN/WARFARIN INR THERAPY RANGESSTANDARD DOSE: 2.0 - 3.0 Includes: PROPHYLAXIS for venous thrombosis, systemic embolization; TREATMENT for venous thrombosis and/or pulmonary embolus.HIGH RISK: Target INR is 2.5-3.5 for patients with mechanical heart valves.T4, [id number] 20:22:00* Test Item Value Reference Range Comments FREE T4 (BEAKER) (test dbws=244) 0.89 ng/dL 0.70-1.48 BLOOD [id number] 18:00:00* Test Item Value Reference Range Comments CULTURE (BEAKER) (test txwd=9296) No growth in 5 days BLOOD [id number] 18:00:00* Test Item Value Reference Range Comments CULTURE (BEAKER) (test jwlp=7943) No growth in 5 days TSH/FREE T4 IF [id number] 16:57:00* Test Item Value Reference Range Comments THYROID STIMULATING HORMONE (BEAKER) (test cwmh=884) 152.96 uIU/mL 0.35-4.94 CBC W/PLT COUNT & AUTO [id number] 06:08:00* Test Item Value Reference Range Comments WHITE BLOOD CELL COUNT (BEAKER) (test vrdm=019) 7.0 K/ L 4.0-10.0 RED BLOOD CELL COUNT (BEAKER) (test doit=375) 3.99 M/ L 4.00-5.00 HEMOGLOBIN (BEAKER) (test cyfy=015) 12.8 GM/DL 12.0-15.0 HEMATOCRIT (BEAKER) (test koup=334) 41.5 % 36.0-45.0 MEAN CORPUSCULAR VOLUME (BEAKER) (test jnsd=395) 104.0 fL 82.0-99.0 MEAN CORPUSCULAR HEMOGLOBIN (BEAKER) (test rdcr=627) 32.0 pg 27.0-33.0 MEAN CORPUSCULAR HEMOGLOBIN CONC (BEAKER) (test spau=793) 30.7 GM/DL 32.0- 36.0 RED CELL DISTRIBUTION WIDTH (BEAKER) (test tpny=463) 17.1 % 10.3-14.2 PLATELET COUNT (BEAKER) (test vpja=888) 164 K/CU MM 150-430 MEAN PLATELET VOLUME (BEAKER) (test flvz=743) 9.3 fL 6.5-10.5 NUCLEATED RED BLOOD CELLS (BEAKER) (test pvlr=611) 0 /100 WBC 0-0 NEUTROPHILS RELATIVE PERCENT (BEAKER) (test nato=272) 76 % LYMPHOCYTES RELATIVE PERCENT (BEAKER) (test ykbp=487) 7 % MONOCYTES RELATIVE PERCENT (BEAKER) (test mjgn=540) 13 % EOSINOPHILS RELATIVE PERCENT (BEAKER) (test xdcy=026) 4 % BASOPHILS RELATIVE PERCENT (BEAKER) (test frjb=858) 0 % NEUTROPHILS ABSOLUTE COUNT (BEAKER) (test wumu=550) 5.32 K/ L 1.80-8.00 LYMPHOCYTES ABSOLUTE COUNT (BEAKER) (test vpva=993) 0.52 K/ L 1.48-4.50 MONOCYTES ABSOLUTE COUNT (BEAKER) (test zmrk=513) 0.91 K/ L 0.00-1.30 EOSINOPHILS ABSOLUTE COUNT (BEAKER) (test dyht=322) 0.25 K/ L 0.00-0.50 BASOPHILS ABSOLUTE COUNT (BEAKER) (test ratg=391) 0.03 K/ L 0.00-0.20 0.00BASI METABOLIC [id number] 06:07:00* Test Item Value Reference Range Comments SODIUM (BEAKER) (test zknm=546) 134 meq/L 136-145 POTASSIUM (BEAKER) (test dpif=736) 4.9 meq/L 3.5-5.1 CHLORIDE (BEAKER) (test elpb=568) 95 meq/L 98-107 CO2 (BEAKER) (test jxrf=467) 23 meq/L 22-29 BLOOD UREA NITROGEN (BEAKER) (test lejn=430) 49 mg/dL 7-21 CREATININE (BEAKER) (test sfcz=666) 6.41 mg/dL 0.57-1.25 GLUCOSE RANDOM (BEAKER) (test grep=268) 97 mg/dL 70-105 CALCIUM (BEAKER) (test aplj=088) 8.7 mg/dL 8.4-10.2 EGFR (BEAKER) (test ktdj=9238) 6 mL/min/1.73 sq m ESTIMATED GFR IS NOT ACCURATE CREATININE CLEARANCE IN PREDICTING GLOMERULAR FILTRATION RATE. ESTIMATED GFR IS NOT APPLICABLE FOR DIALYSIS PATIENTS. [id number] 06:01:00* Test Item Value Reference Range Comments PHOSPHORUS (BEAKER) (test kojn=380) 5.1 mg/dL 2.3-4.7 PROTHROMBIN TIME/[id number] 05:44:00* Test Item Value Reference Range Comments PROTIME (BEAKER) (test zlwz=199) 28.0 seconds 11.7-14.7 INR (BEAKER) (test zyxz=422) 2.6 <=5.9 RECOMMENDED COUMADIN/WARFARIN INR THERAPY RANGESSTANDARD DOSE: 2.0 - 3.0 Includes: PROPHYLAXIS for venous thrombosis, systemic embolization; TREATMENT for venous thrombosis and/or pulmonary embolus.HIGH RISK: Target INR is 2.5-3.5 for patients with mechanical heart valves.CBC W/PLT COUNT & AUTO [id number] 07:38:00* Test Item Value Reference Range Comments WHITE BLOOD CELL COUNT (BEAKER) (test abff=160) 6.8 K/ L 4.0-10.0 RED BLOOD CELL COUNT (BEAKER) (test ubgm=012) 4.00 M/ L 4.00-5.00 HEMOGLOBIN (BEAKER) (test wiww=533) 12.7 GM/DL 12.0-15.0 HEMATOCRIT (BEAKER) (test cxna=833) 41.5 % 36.0-45.0 MEAN CORPUSCULAR VOLUME (BEAKER) (test fkdy=306) 104.0 fL 82.0-99.0 MEAN CORPUSCULAR HEMOGLOBIN (BEAKER) (test ivec=951) 31.6 pg 27.0-33.0 MEAN CORPUSCULAR HEMOGLOBIN CONC (BEAKER) (test joxh=871) 30.5 GM/DL 32.0- 36.0 RED CELL DISTRIBUTION WIDTH (BEAKER) (test nzbu=643) 18.2 % 10.3-14.2 PLATELET COUNT (BEAKER) (test hfzy=315) 160 K/CU MM 150-430 MEAN PLATELET VOLUME (BEAKER) (test olnw=023) 10.0 fL 6.5-10.5 NUCLEATED RED BLOOD CELLS (BEAKER) (test xfzh=126) 0 /100 WBC 0-0 NEUTROPHILS RELATIVE PERCENT (BEAKER) (test xbqq=485) 76 % LYMPHOCYTES RELATIVE PERCENT (BEAKER) (test pblb=128) 8 % MONOCYTES RELATIVE PERCENT (BEAKER) (test ptrn=519) 11 % EOSINOPHILS RELATIVE PERCENT (BEAKER) (test lxke=533) 4 % BASOPHILS RELATIVE PERCENT (BEAKER) (test mgwz=993) 1 % NEUTROPHILS ABSOLUTE COUNT (BEAKER) (test oewk=572) 5.17 K/ L 1.80-8.00 LYMPHOCYTES ABSOLUTE COUNT (BEAKER) (test dznm=916) 0.52 K/ L 1.48-4.50 MONOCYTES ABSOLUTE COUNT (BEAKER) (test tcic=588) 0.74 K/ L 0.00-1.30 EOSINOPHILS ABSOLUTE COUNT (BEAKER) (test cmgl=430) 0.27 K/ L 0.00-0.50 BASOPHILS ABSOLUTE COUNT (BEAKER) (test gnoe=906) 0.08 K/ L 0.00-0.20 0.00BASI METABOLIC [id number] 06:23:00* Test Item Value Reference Range Comments SODIUM (BEAKER) (test diov=538) 136 meq/L 136-145 POTASSIUM (BEAKER) (test crwb=293) 5.0 meq/L 3.5-5.1 Specimen slightly hemolyzed CHLORIDE (BEAKER) (test ymti=917) 97 meq/L 98-107 CO2 (BEAKER) (test scqk=923) 24 meq/L 22-29 BLOOD UREA NITROGEN (BEAKER) (test bfea=071) 36 mg/dL 7-21 CREATININE (BEAKER) (test bcye=762) 5.10 mg/dL 0.57-1.25 Specimen slightly hemolyzed GLUCOSE RANDOM (BEAKER) (test zkbd=302) 81 mg/dL 70-105 CALCIUM (BEAKER) (test hern=455) 8.3 mg/dL 8.4-10.2 EGFR (BEAKER) (test eftm=0133) 8 mL/min/1.73 sq m ESTIMATED GFR IS NOT ACCURATE CREATININE CLEARANCE IN PREDICTING GLOMERULAR FILTRATION RATE. ESTIMATED GFR IS NOT APPLICABLE FOR DIALYSIS PATIENTS. [id number] 06:22:00* Test Item Value Reference Range Comments PHOSPHORUS (BEAKER) (test bsnp=133) 4.9 mg/dL 2.3-4.7 Specimen slightly hemolyzed PROTHROMBIN TIME/[id number] 06:12:00* Test Item Value Reference Range Comments PROTIME (BEAKER) (test tica=953) 30.0 seconds 11.7-14.7 INR (BEAKER) (test jftc=668) 2.8 <=5.9 RECOMMENDED COUMADIN/WARFARIN INR THERAPY RANGESSTANDARD DOSE: 2.0 - 3.0 Includes: PROPHYLAXIS for venous thrombosis, systemic embolization; TREATMENT for venous thrombosis and/or pulmonary embolus.HIGH RISK: Target INR is 2.5-3.5 for patients with mechanical heart valves.CBC W/PLT COUNT & AUTO [id number] 05:07:00* Test Item Value Reference Range Comments WHITE BLOOD CELL COUNT (BEAKER) (test shpi=813) 6.6 K/ L 4.0-10.0 RED BLOOD CELL COUNT (BEAKER) (test dgvx=839) 3.92 M/ L 4.00-5.00 HEMOGLOBIN (BEAKER) (test ltpu=035) 12.2 GM/DL 12.0-15.0 HEMATOCRIT (BEAKER) (test hvdj=958) 40.7 % 36.0-45.0 MEAN CORPUSCULAR VOLUME (BEAKER) (test ioma=587) 104.0 fL 82.0-99.0 MEAN CORPUSCULAR HEMOGLOBIN (BEAKER) (test marx=317) 31.1 pg 27.0-33.0 MEAN CORPUSCULAR HEMOGLOBIN CONC (BEAKER) (test dnpi=367) 30.0 GM/DL 32.0- 36.0 RED CELL DISTRIBUTION WIDTH (BEAKER) (test feza=368) 17.8 % 10.3-14.2 PLATELET COUNT (BEAKER) (test eydg=246) 152 K/CU MM 150-430 MEAN PLATELET VOLUME (BEAKER) (test gtiu=868) 9.6 fL 6.5-10.5 NUCLEATED RED BLOOD CELLS (BEAKER) (test gpyt=244) 0 /100 WBC 0-0 NEUTROPHILS RELATIVE PERCENT (BEAKER) (test zinc=947) 76 % LYMPHOCYTES RELATIVE PERCENT (BEAKER) (test afws=909) 6 % MONOCYTES RELATIVE PERCENT (BEAKER) (test cnir=557) 12 % EOSINOPHILS RELATIVE PERCENT (BEAKER) (test tkxf=001) 4 % BASOPHILS RELATIVE PERCENT (BEAKER) (test mlte=494) 1 % NEUTROPHILS ABSOLUTE COUNT (BEAKER) (test abak=240) 5.03 K/ L 1.80-8.00 LYMPHOCYTES ABSOLUTE COUNT (BEAKER) (test vlkk=716) 0.43 K/ L 1.48-4.50 MONOCYTES ABSOLUTE COUNT (BEAKER) (test honz=299) 0.82 K/ L 0.00-1.30 EOSINOPHILS ABSOLUTE COUNT (BEAKER) (test zjgr=531) 0.26 K/ L 0.00-0.50 BASOPHILS ABSOLUTE COUNT (BEAKER) (test ybqc=939) 0.07 K/ L 0.00-0.20 0.001.100.000.000.000.000.000.000.000.000.000.000.000.00[facility] [id number] 05:04:00* Test Item Value Reference Range Comments SODIUM (BEAKER) (test dhdo=604) 135 meq/L 136-145 POTASSIUM (BEAKER) (test sgbz=975) 5.3 meq/L 3.5-5.1 CHLORIDE (BEAKER) (test wbpm=052) 97 meq/L 98-107 CO2 (BEAKER) (test duhb=340) 22 meq/L 22-29 BLOOD UREA NITROGEN (BEAKER) (test zbby=645) 69 mg/dL 7-21 CREATININE (BEAKER) (test xifb=948) 7.42 mg/dL 0.57-1.25 GLUCOSE RANDOM (BEAKER) (test kyew=554) 95 mg/dL 70-105 CALCIUM (BEAKER) (test gdxc=620) 8.3 mg/dL 8.4-10.2 EGFR (BEAKER) (test ywxl=9986) 5 mL/min/1.73 sq m ESTIMATED GFR IS NOT ACCURATE CREATININE CLEARANCE IN PREDICTING GLOMERULAR FILTRATION RATE. ESTIMATED GFR IS NOT APPLICABLE FOR DIALYSIS PATIENTS. PROTHROMBIN TIME/[id number] 04:56:00* Test Item Value Reference Range Comments PROTIME (BEAKER) (test knre=873) 24.0 seconds 11.7-14.7 INR (BEAKER) (test gtlj=990) 2.1 <=5.9 RECOMMENDED COUMADIN/WARFARIN INR THERAPY RANGESSTANDARD DOSE: 2.0 - 3.0 Includes: PROPHYLAXIS for venous thrombosis, systemic embolization; TREATMENT for venous thrombosis and/or pulmonary embolus.HIGH RISK: Target INR is 2.5-3.5 for patients with mechanical heart valves.[id number] 04:54:00* Test Item Value Reference Range Comments PHOSPHORUS (BEAKER) (test kkyj=997) 6.4 mg/dL 2.3-4.7 [id number] 04:54:00* Test Item Value Reference Range Comments MAGNESIUM (BEAKER) (test ryif=567) 2.0 mg/dL 1.6-2.6 HEPATIC FUNCTION [id number] 04:54:00* Test Item Value Reference Range Comments TOTAL PROTEIN (BEAKER) (test mpyr=431) 6.5 gm/dL 6.0-8.3 ALBUMIN (BEAKER) (test tsmg=6086) 3.3 g/dL 3.5-5.0 BILIRUBIN TOTAL (BEAKER) (test podc=755) 0.7 mg/dL 0.2-1.2 BILIRUBIN DIRECT (BEAKER) (test rslq=529) 0.4 mg/dL 0.1-0.5 ALKALINE PHOSPHATASE (BEAKER) (test lggg=839) 123 U/L 40-150 AST (SGOT) (BEAKER) (test mfdy=484) 19 U/L 5-34 ALT (SGPT) (BEAKER) (test acki=794) 15 U/L 6-55 BASIC METABOLIC [id number] 07:06:00* Test Item Value Reference Range Comments SODIUM (BEAKER) (test julj=497) 133 meq/L 136-145 POTASSIUM (BEAKER) (test owes=453) 5.2 meq/L 3.5-5.1 CHLORIDE (BEAKER) (test wssm=109) 95 meq/L 98-107 CO2 (BEAKER) (test ushd=353) 22 meq/L 22-29 BLOOD UREA NITROGEN (BEAKER) (test arqi=843) 58 mg/dL 7-21 CREATININE (BEAKER) (test qziy=391) 6.71 mg/dL 0.57-1.25 GLUCOSE RANDOM (BEAKER) (test pkut=521) 92 mg/dL 70-105 CALCIUM (BEAKER) (test xubp=918) 8.5 mg/dL 8.4-10.2 EGFR (BEAKER) (test gtat=8761) 6 mL/min/1.73 sq m ESTIMATED GFR IS NOT ACCURATE CREATININE CLEARANCE IN PREDICTING GLOMERULAR FILTRATION RATE. ESTIMATED GFR IS NOT APPLICABLE FOR DIALYSIS PATIENTS. CBC W/PLT COUNT & AUTO [id number] 06:53:00* Test Item Value Reference Range Comments WHITE BLOOD CELL COUNT (BEAKER) (test ypzs=386) 7.4 K/ L 4.0-10.0 RED BLOOD CELL COUNT (BEAKER) (test aomh=851) 4.12 M/ L 4.00-5.00 HEMOGLOBIN (BEAKER) (test dbtz=764) 13.4 GM/DL 12.0-15.0 HEMATOCRIT (BEAKER) (test ywrt=488) 42.8 % 36.0-45.0 MEAN CORPUSCULAR VOLUME (BEAKER) (test ttbe=585) 104.0 fL 82.0-99.0 MEAN CORPUSCULAR HEMOGLOBIN (BEAKER) (test vpxn=655) 32.5 pg 27.0-33.0 MEAN CORPUSCULAR HEMOGLOBIN CONC (BEAKER) (test qvuh=193) 31.2 GM/DL 32.0- 36.0 RED CELL DISTRIBUTION WIDTH (BEAKER) (test ffcz=039) 17.9 % 10.3-14.2 PLATELET COUNT (BEAKER) (test bsyf=013) 153 K/CU MM 150-430 MEAN PLATELET VOLUME (BEAKER) (test xvmn=945) 9.3 fL 6.5-10.5 NUCLEATED RED BLOOD CELLS (BEAKER) (test usoy=435) 0 /100 WBC 0-0 NEUTROPHILS RELATIVE PERCENT (BEAKER) (test ddlx=217) 75 % LYMPHOCYTES RELATIVE PERCENT (BEAKER) (test bwcf=171) 9 % MONOCYTES RELATIVE PERCENT (BEAKER) (test tenq=418) 11 % EOSINOPHILS RELATIVE PERCENT (BEAKER) (test qxct=060) 3 % BASOPHILS RELATIVE PERCENT (BEAKER) (test qkmh=348) 1 % NEUTROPHILS ABSOLUTE COUNT (BEAKER) (test xxhg=696) 5.57 K/ L 1.80-8.00 LYMPHOCYTES ABSOLUTE COUNT (BEAKER) (test clhh=351) 0.64 K/ L 1.48-4.50 MONOCYTES ABSOLUTE COUNT (BEAKER) (test raee=551) 0.83 K/ L 0.00-1.30 EOSINOPHILS ABSOLUTE COUNT (BEAKER) (test nvmo=119) 0.25 K/ L 0.00-0.50 BASOPHILS ABSOLUTE COUNT (BEAKER) (test pgiw=231) 0.11 K/ L 0.00-0.20 [id number] 06:35:00* Test Item Value Reference Range Comments PHOSPHORUS (BEAKER) (test fiaj=743) 5.6 mg/dL 2.3-4.7 [id number] 06:35:00* Test Item Value Reference Range Comments MAGNESIUM (BEAKER) (test euej=505) 2.0 mg/dL 1.6-2.6 HEPATIC FUNCTION [id number] 06:35:00* Test Item Value Reference Range Comments TOTAL PROTEIN (BEAKER) (test ugkn=589) 7.2 gm/dL 6.0-8.3 ALBUMIN (BEAKER) (test lgdn=4414) 3.7 g/dL 3.5-5.0 BILIRUBIN TOTAL (BEAKER) (test fjhm=202) 0.9 mg/dL 0.2-1.2 BILIRUBIN DIRECT (BEAKER) (test zjjk=730) 0.5 mg/dL 0.1-0.5 ALKALINE PHOSPHATASE (BEAKER) (test nyet=658) 137 U/L 40-150 AST (SGOT) (BEAKER) (test mmgo=278) 18 U/L 5-34 ALT (SGPT) (BEAKER) (test mrxl=593) 15 U/L 6-55 PROTHROMBIN [id number] 06:33:00* Test Item Value Reference Range Comments PROTIME (BEAKER) (test zqat=606) 19.6 seconds 11.7-14.7 INR (BEAKER) (test assn=860) 1.7 <=5.9 RECOMMENDED COUMADIN/WARFARIN INR THERAPY RANGESSTANDARD DOSE: 2.0 - 3.0 Includes: PROPHYLAXIS for venous thrombosis, systemic embolization; TREATMENT for venous thrombosis and/or pulmonary embolus.HIGH RISK: Target INR is 2.5-3.5 for patients with mechanical heart valves.COMPREHENSIVE METABOLIC [id number] 08:18:00* Test Item Value Reference Range Comments TOTAL PROTEIN (BEAKER) (test sqaa=223) 7.0 gm/dL 6.0-8.3 Specimen slightly hemolyzed ALBUMIN (BEAKER) (test nfjc=0254) 3.4 g/dL 3.5-5.0 Specimen slightly hemolyzed ALKALINE PHOSPHATASE (BEAKER) (test lbzq=763) 134 U/L 40-150 BILIRUBIN TOTAL (BEAKER) (test skwr=450) 0.8 mg/dL 0.2-1.2 Specimen slightly hemolyzed SODIUM (BEAKER) (test kqqw=711) 137 meq/L 136-145 POTASSIUM (BEAKER) (test zlqx=467) 5.7 meq/L 3.5-5.1 Specimen slightly hemolyzed CHLORIDE (BEAKER) (test jdqm=255) 102 meq/L 98-107 CO2 (BEAKER) (test msap=724) 18 meq/L 22-29 BLOOD UREA NITROGEN (BEAKER) (test vvhw=897) 43 mg/dL 7-21 CREATININE (BEAKER) (test dazq=629) 5.90 mg/dL 0.57-1.25 Specimen slightly hemolyzed GLUCOSE RANDOM (BEAKER) (test bazd=931) 70 mg/dL 70-105 CALCIUM (BEAKER) (test akce=816) 8.0 mg/dL 8.4-10.2 AST (SGOT) (BEAKER) (test sjjj=029) 23 U/L 5-34 Specimen slightly hemolyzed ALT (SGPT) (BEAKER) (test gdux=606) 16 U/L 6-55 Specimen slightly hemolyzed EGFR (BEAKER) (test otzg=7111) 7 mL/min/1.73 sq m ESTIMATED GFR IS NOT ACCURATE CREATININE CLEARANCE IN PREDICTING GLOMERULAR FILTRATION RATE. ESTIMATED GFR IS NOT APPLICABLE FOR DIALYSIS PATIENTS. B-TYPE NATRIURETIC FACTOR (BNP)2016-11-29 08:17:00* Test Item Value Reference Range Comments B-TYPE NATRIURETIC PEPTIDE (BEAKER) (test byiz=078) 7325 pg/mL 0-100 BASIC METABOLIC [id number] 08:16:00* Test Item Value Reference Range Comments SODIUM (BEAKER) (test ycph=405) 137 meq/L 136-145 POTASSIUM (BEAKER) (test oecg=451) 5.2 meq/L 3.5-5.1 Specimen slightly hemolyzed CHLORIDE (BEAKER) (test nxic=604) 99 meq/L 98-107 CO2 (BEAKER) (test lchm=476) 22 meq/L 22-29 BLOOD UREA NITROGEN (BEAKER) (test vrmf=931) 43 mg/dL 7-21 CREATININE (BEAKER) (test bwta=920) 5.90 mg/dL 0.57-1.25 Specimen slightly hemolyzed GLUCOSE RANDOM (BEAKER) (test nnvr=920) 79 mg/dL 70-105 CALCIUM (BEAKER) (test yycl=037) 8.0 mg/dL 8.4-10.2 EGFR (BEAKER) (test swzl=3050) 7 mL/min/1.73 sq m ESTIMATED GFR IS NOT ACCURATE CREATININE CLEARANCE IN PREDICTING GLOMERULAR FILTRATION RATE. ESTIMATED GFR IS NOT APPLICABLE FOR DIALYSIS PATIENTS. HEPATITIS B SURFACE [id number] 08:12:00* Test Item Value Reference Range Comments HEPATITIS B SURFACE ANTIGEN (2) (BEAKER) (test tcdg=0091) Nonreactive Nonreactive Pls add to specimen drawn earlier.LACTIC ACID, VENOUS, WHOLE [id number] 08: 05:00* Test Item Value Reference Range Comments LACTATE BLOOD VENOUS (2) (BEAKER) (test izly=5360) 1.1 mmol/L 0.5-2.2 Specimen markedly hemolyzed Effective 10/10/2015: Units/Reference Range ChangeNew: 0.5-2.2 mmol/L Previous: 5 -20 mg/dLCBC W/PLT COUNT & AUTO [id number] 08:02:00* Test Item Value Reference Range Comments WHITE BLOOD CELL COUNT (BEAKER) (test anyw=114) 8.7 K/ L 4.0-10.0 RED BLOOD CELL COUNT (BEAKER) (test ackp=581) 3.90 M/ L 4.00-5.00 HEMOGLOBIN (BEAKER) (test hjkv=244) 12.5 GM/DL 12.0-15.0 HEMATOCRIT (BEAKER) (test xpui=968) 41.5 % 36.0-45.0 MEAN CORPUSCULAR VOLUME (BEAKER) (test vday=979) 106.0 fL 82.0-99.0 MEAN CORPUSCULAR HEMOGLOBIN (BEAKER) (test ktdk=387) 32.1 pg 27.0-33.0 MEAN CORPUSCULAR HEMOGLOBIN CONC (BEAKER) (test ujga=916) 30.1 GM/DL 32.0- 36.0 RED CELL DISTRIBUTION WIDTH (BEAKER) (test fynd=286) 17.3 % 10.3-14.2 PLATELET COUNT (BEAKER) (test cjtc=134) 162 K/CU MM 150-430 MEAN PLATELET VOLUME (BEAKER) (test czqt=516) 8.9 fL 6.5-10.5 NUCLEATED RED BLOOD CELLS (BEAKER) (test oypo=051) 0 /100 WBC 0-0 NEUTROPHILS RELATIVE PERCENT (BEAKER) (test mxrx=062) 77 % LYMPHOCYTES RELATIVE PERCENT (BEAKER) (test clas=134) 9 % MONOCYTES RELATIVE PERCENT (BEAKER) (test ewya=723) 9 % EOSINOPHILS RELATIVE PERCENT (BEAKER) (test egav=523) 4 % BASOPHILS RELATIVE PERCENT (BEAKER) (test rzxw=225) 1 % NEUTROPHILS ABSOLUTE COUNT (BEAKER) (test wjhr=576) 6.68 K/ L 1.80-8.00 LYMPHOCYTES ABSOLUTE COUNT (BEAKER) (test gfhw=289) 0.80 K/ L 1.48-4.50 MONOCYTES ABSOLUTE COUNT (BEAKER) (test haor=411) 0.78 K/ L 0.00-1.30 EOSINOPHILS ABSOLUTE COUNT (BEAKER) (test ohte=805) 0.36 K/ L 0.00-0.50 BASOPHILS ABSOLUTE COUNT (BEAKER) (test rokt=863) 0.06 K/ L 0.00-0.20 [id number] 08:02:00* Test Item Value Reference Range Comments MAGNESIUM (BEAKER) (test nvsg=354) 1.7 mg/dL 1.6-2.6 Specimen slightly hemolyzed [id number] 08:02:00* Test Item Value Reference Range Comments PHOSPHORUS (BEAKER) (test thff=256) 5.1 mg/dL 2.3-4.7 Specimen slightly hemolyzed HEPATIC FUNCTION [id number] 08:02:00* Test Item Value Reference Range Comments TOTAL PROTEIN (BEAKER) (test giqy=774) 7.0 gm/dL 6.0-8.3 Specimen slightly hemolyzed ALBUMIN (BEAKER) (test ztva=5620) 3.6 g/dL 3.5-5.0 Specimen slightly hemolyzed BILIRUBIN TOTAL (BEAKER) (test ikhg=115) 0.8 mg/dL 0.2-1.2 Specimen slightly hemolyzed BILIRUBIN DIRECT (BEAKER) (test ucnd=870) 0.4 mg/dL 0.1-0.5 Specimen slightly hemolyzed ALKALINE PHOSPHATASE (BEAKER) (test uumn=250) 136 U/L 40-150 AST (SGOT) (BEAKER) (test quwt=746) 21 U/L 5-34 Specimen slightly hemolyzed ALT (SGPT) (BEAKER) (test jhxf=832) 16 U/L 6-55 Specimen slightly hemolyzed VANCOMYCIN LEVEL, [id number] 07:48:00* Test Item Value Reference Range Comments VANCOMYCIN RANDOM (BEAKER) (test wevb=717) 14.6 ug/mL Reference Range: No NormalsPROTHROMBIN TIME/[id number] 07:45:00* Test Item Value Reference Range Comments PROTIME (BEAKER) (test hgjm=902) 18.5 seconds 11.7-14.7 INR (BEAKER) (test zjxc=274) 1.5 <=5.9 RECOMMENDED COUMADIN/WARFARIN INR THERAPY RANGESSTANDARD DOSE: 2.0 - 3.0 Includes: PROPHYLAXIS for venous thrombosis, systemic embolization; TREATMENT for venous thrombosis and/or pulmonary embolus.HIGH RISK: Target INR is 2.5-3.5 for patients with mechanical heart valves.COMPREHENSIVE METABOLIC [id number] 13:49:00* Test Item Value Reference Range Comments TOTAL PROTEIN (BEAKER) (test tpnt=318) 7.8 gm/dL 6.0-8.3 ALBUMIN (BEAKER) (test cmwk=6321) 4.1 g/dL 3.5-5.0 ALKALINE PHOSPHATASE (BEAKER) (test fjcf=853) 157 U/L 40-150 BILIRUBIN TOTAL (BEAKER) (test inpa=131) 1.1 mg/dL 0.2-1.2 SODIUM (BEAKER) (test fxkw=044) 141 meq/L 136-145 POTASSIUM (BEAKER) (test gfoa=103) 4.4 meq/L 3.5-5.1 CHLORIDE (BEAKER) (test lajj=041) 96 meq/L 98-107 CO2 (BEAKER) (test yaln=547) 29 meq/L 22-29 BLOOD UREA NITROGEN (BEAKER) (test avxe=627) 36 mg/dL 7-21 CREATININE (BEAKER) (test ocfa=208) 5.43 mg/dL 0.57-1.25 GLUCOSE RANDOM (BEAKER) (test oinj=206) 115 mg/dL 70-105 CALCIUM (BEAKER) (test oxou=297) 8.7 mg/dL 8.4-10.2 AST (SGOT) (BEAKER) (test tnqs=176) 24 U/L 5-34 ALT (SGPT) (BEAKER) (test eapb=344) 19 U/L 6-55 EGFR (BEAKER) (test jcgj=3719) 8 mL/min/1.73 sq m ESTIMATED GFR IS NOT ACCURATE CREATININE CLEARANCE IN PREDICTING GLOMERULAR FILTRATION RATE. ESTIMATED GFR IS NOT APPLICABLE FOR DIALYSIS PATIENTS. CBC W/PLT COUNT & AUTO [id number] 13:31:00* Test Item Value Reference Range Comments WHITE BLOOD CELL COUNT (BEAKER) (test walf=455) 7.2 K/ L 4.0-10.0 RED BLOOD CELL COUNT (BEAKER) (test aadp=096) 4.25 M/ L 4.00-5.00 HEMOGLOBIN (BEAKER) (test ulwm=966) 13.7 GM/DL 12.0-15.0 HEMATOCRIT (BEAKER) (test joae=265) 43.9 % 36.0-45.0 MEAN CORPUSCULAR VOLUME (BEAKER) (test epem=842) 103.0 fL 82.0-99.0 MEAN CORPUSCULAR HEMOGLOBIN (BEAKER) (test husj=508) 32.1 pg 27.0-33.0 MEAN CORPUSCULAR HEMOGLOBIN CONC (BEAKER) (test ruqp=199) 31.1 GM/DL 32.0- 36.0 RED CELL DISTRIBUTION WIDTH (BEAKER) (test nvvf=272) 17.9 % 10.3-14.2 PLATELET COUNT (BEAKER) (test pjtl=359) 176 K/CU MM 150-430 MEAN PLATELET VOLUME (BEAKER) (test nosc=685) 9.0 fL 6.5-10.5 NUCLEATED RED BLOOD CELLS (BEAKER) (test qjrd=885) 0 /100 WBC 0-0 NEUTROPHILS RELATIVE PERCENT (BEAKER) (test bhno=459) 81 % LYMPHOCYTES RELATIVE PERCENT (BEAKER) (test hqzm=693) 5 % MONOCYTES RELATIVE PERCENT (BEAKER) (test wdrz=166) 10 % EOSINOPHILS RELATIVE PERCENT (BEAKER) (test uxys=822) 3 % BASOPHILS RELATIVE PERCENT (BEAKER) (test fakl=115) 1 % NEUTROPHILS ABSOLUTE COUNT (BEAKER) (test iuwv=208) 5.83 K/ L 1.80-8.00 LYMPHOCYTES ABSOLUTE COUNT (BEAKER) (test jhuu=818) 0.37 K/ L 1.48-4.50 MONOCYTES ABSOLUTE COUNT (BEAKER) (test msqj=254) 0.73 K/ L 0.00-1.30 EOSINOPHILS ABSOLUTE COUNT (BEAKER) (test jlkm=997) 0.23 K/ L 0.00-0.50 BASOPHILS ABSOLUTE COUNT (BEAKER) (test nkmq=240) 0.05 K/ L 0.00-0.20 0.001.100.000.000.000.000.000.000.000.000.000.000.000.00CREATINE KINASE (CK), TOTAL AND [id number] 13:20:00* Test Item Value Reference Range Comments CREATINE KINASE TOTAL (BEAKER) (test xonw=352) 119 U/L 29-200 CREATINE KINASE-MB (BEAKER) (test askq=634) 1.7 ng/mL 0.0-6.6 CREATINE KINASE-MB INDEX (BEAKER) (test msse=442) 1.4 % Effective 04/25/2014: CK-MB Reference Range ChangeNew: 0.0-6.6 Previous: 0.0- 4.9CK-MB Reference Range:<6.7 Normal6.7-10.0 Borderline>10.0 AbnormalTROPONIN [id number] 13:20:00* Test Item Value Reference Range Comments TROPONIN I (BEAKER) (test xkdd=197) 0.07 ng/mL 0.00-0.03 Effective 04/25/2014: Reference Range ChangeNew: 0.00-0.03 Previous 0.00- 0.15Troponin I (TnI) levels must be interpreted in the context of the presenting symptoms and the clinical findings. Elevated TnI levels indicate myocardial damage, but are not specific for ischemic heart disease. Elevated TnI levels are seen in patients with other cardiac conditions (including myocarditis and congestive heart failure), and slight TnI elevations occur in patients with other conditions, including sepsis, renal failure, acidosis, acute neurological disease, and persistent tachyarrhythmia.[id number] 13:14:00* Test Item Value Reference Range Comments PHOSPHORUS (BEAKER) (test uwzr=966) 3.7 mg/dL 2.3-4.7 [id number] 13:14:00* Test Item Value Reference Range Comments MAGNESIUM (BEAKER) (test mknd=439) 2.0 mg/dL 1.6-2.6 HEPATIC FUNCTION [id number] 13:14:00* Test Item Value Reference Range Comments TOTAL PROTEIN (BEAKER) (test vxoa=799) 7.8 gm/dL 6.0-8.3 ALBUMIN (BEAKER) (test nayp=7642) 4.1 g/dL 3.5-5.0 BILIRUBIN TOTAL (BEAKER) (test vcxp=167) 1.1 mg/dL 0.2-1.2 BILIRUBIN DIRECT (BEAKER) (test ulgf=009) 0.6 mg/dL 0.1-0.5 ALKALINE PHOSPHATASE (BEAKER) (test lyci=726) 157 U/L 40-150 AST (SGOT) (BEAKER) (test jgvu=196) 24 U/L 5-34 ALT (SGPT) (BEAKER) (test iiwq=837) 19 U/L 6-55 [id number] 13:14:00* Test Item Value Reference Range Comments LIPASE (BEAKER) (test rbwu=046) 67 U/L 8-78 [id number] 13:01:00* Test Item Value Reference Range Comments PARTIAL THROMBOPLASTIN TIME (BEAKER) (test hudj=400) 31.4 seconds 22.5-36.0 PROTHROMBIN TIME/[id number] 13:00:00* Test Item Value Reference Range Comments PROTIME (BEAKER) (test ekao=862) 17.7 seconds 11.7-14.7 INR (BEAKER) (test epvq=869) 1.5 <=5.9 RECOMMENDED COUMADIN/WARFARIN INR THERAPY RANGESSTANDARD DOSE: 2.0 - 3.0 Includes: PROPHYLAXIS for venous thrombosis, systemic embolization; TREATMENT for venous thrombosis and/or pulmonary embolus.HIGH RISK: Target INR is 2.5-3.5 for patients with mechanical heart valves.POCT-LACTIC ACID, [id number] 12: 48:00* Test Item Value Reference Range Comments POC-LACTIC ACID, VENOUS (BEAKER) (test erbl=6458) 1.1 mmol/L 0.9-1.7 TESTED AT [address] [address] [address] CHEST WO [place] [address] Patient Name: ARLETTE SEXTON MR #: [id number] : 1945 Age/Sex: 72/F Req #: [id number] Adm Physician: Ordered by: JORGE NIETO MD Report #: [id number] Location: CT Room/Bed: Procedure: [id number] CT/CT CHEST WO Exam Date: 04/21/17 Exam Time: 1750 REPORT STATUS: Signed PROCEDURE: CT CHEST WITHOUT CONTRAST CT scan of the chest WITHOUT intravenous contrast, using standard protocol. TECHNIQUE: The chest was scanned utilizing a multidetector helical scanner from the apex to the level of the adrenal glands. No IV contrast was administered per physician's request. Coronal and sagittal multiplanar reformations were obtained. COMPARISON: [facility] [place], , CHEST SINGLE (PORTABLE), 03/05/2017, 4:51. INDICATIONS: ABNORMAL CXR FINDINGS: Lines/tubes: None. Lungs and Airways: Mild to moderate bilateral centrilobular emphysematous changes, predominantly in the upper lobes. Mild to moderate compressive atelectasis of the right upper lobe , mild compressive atelectasis of the right middle lobe and moderate compressive atelectasis of the right lower lobe. Linear opacities in the anterior left lower lobe, likely representing subsegmental atelectasis or scarring. 2-3 mm pulmonary nodule in the left lower lobe (series 3, image 49) . No other pulmonary nodules. No masses. Airways are clear, without endobronchial lesions. Pleura: Moderate right-sided pleural effusion, which is partly loculated in its anterior aspect (series 2, image 68). No pneumothorax. Heart and mediastinum: Thyroid is unremarkable. Marked cardiomegaly, with biatrial and biventricular enlargement. No pericardial effusion. A stent is noted in the proximal aorta. Marked atherosclerotic calcification of the thoracic aorta, coronary arteries. Aorta is non- aneurysmal. The main pulmonary artery measures 3.1 cm. Lymph nodes: No mediastinal or axillary adenopathy. Difficult to evaluate for hilar adenopathy given the lack of intravenous contrast. Abdomen: Limited views of the upper abdomen show a partially visualized indeterminate 1.5 cm hypodense lesion in hepatic segment IV (series 2 image 126). Multiple bilateral renal fluid density lesions are partially visualized, some of which contain thin wall calcifications. Thickening of bilateral adrenal glands, likely representing hyperplasia. Atherosclerotic calcification of the abdominal aorta and aortic branches. Small amount of perihepatic and perisplenic ascites. Bones: No acute bony abnormalities. Degenerative disc changes in the thoracic spine. No lytic lesions. A left breast implant is visualized. IMPRESSION: 1. moderate right-sided pleural effusion, which is partly loculated in its anterior aspect, and results in mild to moderate compressive atelectasis of the right upper lobe, mild compressive atelectasis of the right middle lobe and moderate compressive atelectasis of the right lower lobe. 2. 2-3 mm pulmonary nodule in the left lower lobe. Consider followup chest CT in 12 months in this likely high risk patient. 3. Mild to moderate bilateral centrilobular emphysematous changes. 4. Marked cardiomegaly. 5. Partially visualized indeterminate 1.5 cm hypodense lesion in hepatic segment IV and bilateral renal cysts, some of which have thin peripheral wall calcification. 6. Small amount of perihepatic and perisplenic ascites. Dickson Pollard M.D. Dictated by: Dickson Pollard M.D. on 04/21/2017 at 18:51 Electronically approved by: Dickson Pollard M.D. on 04/21/2017 at 18:51 Dictated By: DICKSON POLLARD MD 50 Transcribed By: AUSTEN on 04/21/171850 COPY TO: JORGE NIETO MD CHEST SINGLE (PORTABLE) [place] [address] Patient Name: ARLETTE SEXTON MR #: [id number] : 1945 Age/Sex: 72/F Req #: [id number] [facility] Physician: JORGE NIETO MD Ordered by: POLA KARIMI MD Report #: [id number] Location: MED/SURG Room/Bed: [facility] _ Procedure: [id number] DX/CHEST SINGLE (PORTABLE) Exam Date: 03/05/17 Exam Time: 0451 REPORT STATUS: Signed EXAMINATION : CHEST SINGLE (PORTABLE) INDICATION: Follow up congestive heart failure. COMPARISON: 03/04/2017 and 02/24/2017 FINDINGS: TUBES and LINES: Oxygen tubing overlying the right hemithorax LUNGS: Lungs are not well inflated. There are bibasilar atelectasis. There is perihilar interstitial opacities, consistent with interstitial edema. Confluent opacity in the right middle and right lower lobe. PLEURA: Small right pleural effusion is stable. HEART AND MEDIASTINUM: Cardiac size is moderately enlarged. There are atherosclerotic calcifications within the aorta. BONES AND SOFT TISSUES: No acute osseous lesion. Soft tissues are remarkable for bilateral axillary surgical clips left greater than right.. UPPER ABDOMEN: No free air under the diaphragm. IMPRESSION: 1. Findings are compatible with worsening cardiogenic pulmonary edema. 2. Confluent opacities in the right lung are suspicious for superimposed pneumonia. Signed by: Dr. Rishi Palmer M.D. on 03/05/2017 6:08 AM Dictated By: RISHI GALVEZ MD 7 Transcribed By: VALERIE on 03/05/17607 COPY TO: POLA KARIMI MD IR CONSULT [place] [address] Patient Name: ARLETTE SEXTON MR #: [id number] : 1945 Age/Sex: 72/F Req #: [id number] [facility] Physician: JORGE NIETO MD Ordered by : POLA KARIMI MD Report #: [id number] Location: MED/SURG Room/Bed: [facility] Procedure: [id number] DX/IR CONSULT Exam Date: Exam Time: REPORT STATUS: Signed Date and Time: Procedure: Right thoracentesis under ultrasound guidance card tape converter operator: Dr. Goldberg Pre-operative diagnosis: Right pleural effusion Post-operative diagnosis: Right pleural effusion Conscious Sedation: None The patient's heart rate and pulse oximetry were continuously monitored by the interventional radiology nurse. Blood pressure was monitored at 5 minute intervals. Additional Medications: Lidocaine 1% for local anesthesia Fluoroscopy time: 0 Dose-area Product: 0 mGycm2. Frontal Air Kerma: 0 Contrast used: 0 Estimated blood loss: Minimal Specimens: 1350 cc blood-tinged fluid Implants: None DISCUSSION: Informed consent was obtained and documented in the medical record. The patient was placed in the sitting position. Preliminary sonographic evaluation confirmed presence of a moderate right pleural effusion. A suitable percutaneous approach was identified and the overlying skin was prepped and draped in the standard sterile fashion. 1% lidocaine was infiltrated into the skin and subcutaneous tissues for local anesthesia. Then under continuous sonographic guidance a 5 Tunisian CytoPherx needle catheter was advanced into the right pleural space. The catheter was advanced off the needle and connected to vacuum bottle with evacuation of 13 50 cc blood-tinged fluid. At the conclusion of sampling the catheter was removed and a sterile, occlusive dressing was applied. The patient tolerated the procedure well without immediate complication. FINDINGS: Moderate right pleural effusion IMPRESSION: Successful ultrasound-guided right thoracentesis with evacuation of 13 50 cc blood tinged fluid. A postprocedure chest radiograph was requested upon completion of the thoracentesis. Signed by : Dr. Pola Goldberg M.D. on 03/11/2017 10:06 AM Dictated By: POLA GOLDBERG MD 1006 Transcribed By: VALERIE on 03/11/17 1006 COPY TO: POLA KARIMI MD CHEST XRAY POST PROCEDURE [place] [address] Patient Name: ARLETTE SEXTON MR #: [id number] : 1945 Age/Sex: 72/F Req #: [id number] Adm Physician: JORGE NIETO MD Ordered by: POLA GOLDBERG MD Report #: [id number] Location: MED/SURG Room/Bed: [facility] _ Procedure: DX/CHEST XRAY POST PROCEDURE Exam Date: Exam Time: REPORT STATUS: Signed PROCEDURE: CHEST XRAY POST PROCEDURE COMPARISON: 03/02/17 INDICATIONS: POST THORACENTESIS FINDINGS: Limited by mild rotation. Interval decrease in right pleural effusion(now trace) post thoracentesis. No pneumothorax. Enlarged cardiac silhouette. Again seen surgical clips overlying the left axilla. CONCLUSION: Interval decrease in right pleural effusion(now trace) post thoracentesis. No pneumothorax. Dictated by: Gallito Merritt M.D. on 03/04/2017 at 15:44 Electronically approved by: Gallito Merritt M.D. on 03/04/2017 at 15:44 Dictated By: GALLITO MERRITT MD 1544 Transcribed By: AUSTEN on 03/04/17 1544 COPY TO: POLA GOLDBERG MD THORACENTESIS/ US GUIDED [place] [address] Patient Name: ARLETTE SEXTON MR #: [id number] : 1945 Age/Sex: 72/F Req #: [id number] Adm Physician: JORGE NIETO MD Ordered by: JORGE NIETO MD Report #: [id number] Location: MED/SURG Room/Bed: [facility] _ Procedure: [id number] US/THORACENTESIS/US GUIDED Exam Date: 03/04/17 Exam Time: 822 REPORT STATUS: Signed Date and Time: 03/04/2017 Procedure: Right thoracentesis under ultrasound guidance card tape converter operator: Dr. Goldberg Pre-operative diagnosis: Right pleural effusion Post-operative diagnosis: Right pleural effusion Conscious Sedation: None The patient's heart rate and pulse oximetry were continuously monitored by the interventional radiology nurse. Blood pressure was monitored at 5 minute intervals. Additional Medications: Lidocaine 1% for local anesthesia Fluoroscopy time: 0 Dose-area Product: 0 mGycm2. Frontal Air Kerma: 0 Contrast used: 0 Estimated blood loss: Minimal Specimens: 1350 cc blood-tinged fluid Implants: None DISCUSSION: Informed consent was obtained and documented in the medical record. The patient was placed in the sitting position. Preliminary sonographic evaluation confirmed presence of a moderate right pleural effusion. A suitable percutaneous approach was identified and the overlying skin was prepped and draped in the standard sterile fashion. 1% lidocaine was infiltrated into the skin and subcutaneous tissues for local anesthesia. Then under continuous sonographic guidance a 5 Tunisian Yueh needle catheter was advanced into the right pleural space. The catheter was advanced off the needle and connected to vacuum bottle with evacuation of 13 50 cc blood-tinged fluid. At the conclusion of sampling the catheter was removed and a sterile, occlusive dressing was applied. The patient tolerated the procedure well without immediate complication. FINDINGS: Moderate right pleural effusion IMPRESSION: Successful ultrasound-guided right thoracentesis with evacuation of 13 50 cc blood tinged fluid. A postprocedure chest radiograph was requested upon completion of the thoracentesis. Signed by : Dr. Pola Goldberg M.D. on 03/11/2017 10:06 AM Dictated By: POLA GOLDBERG MD 1006 Transcribed By: VALERIE on 03/11/17 1006 COPY TO: JORGE NIETO MD CHEST 2 VIEWS [place] [address] Patient Name: ARLETTE SEXTON MR #: [id number] : 1945 Age/Sex: 72/F Req #: [id number] Adm Physician: JORGE NIETO MD Ordered by: CARLENE DAVENPORT MD, MD Report #: [id number] Location: MED/SURG Room/Bed: [facility] _ Procedure: [id number] DX/CHEST 2 VIEWS Exam Date: 03/02/17 Exam Time: 2012 REPORT STATUS: Signed EXAMINATION: CHEST 2 VIEWS INDICATION: Right-sided pneumonia COMPARISON: 03/01/2017 and 02/24/2017 FINDINGS: TUBES and LINES: None. LUNGS : Persistent hypoinflation of the right hemithorax with right lower lobe airspace disease . PLEURA: Stable right pleural effusion. HEART AND MEDIASTINUM: Cardiac size is stable, severely enlarged. There are atherosclerotic calcifications within the aorta. On lateral view, there is evidence of aortic valve stent compatible with TAVR BONES AND SOFT TISSUES : No acute osseous lesion. Soft tissues are stable with evidence of prior bilateral axillary lymph node dissection.. UPPER ABDOMEN: No free air under the diaphragm. IMPRESSION: No significant interval change of the right lower lobe pneumonia and parapneumonic effusion. Signed by: Dr. Rishi Palmer M.D. on 03/02/2017 9:14 PM Dictated By: RISHI CLEMONS MD 13 Transcribed By: VALERIE on 03/02/172113 COPY TO: CARLENE DAVENPORT CHEST 2 VIEWS [place] [address] Patient Name: ARLETTE SEXTON MR #: [id number] : 1945 Age/Sex: 72/F Req #: [id number] Adm Physician: JORGE NIETO MD Ordered by: POLA KARIMI MD Report #: [id number] Location: MED/SURG Room/Bed: 100- _ Procedure: [id number] DX/CHEST 2 VIEWS Exam Date: 03/01/17 Exam Time: 1530 REPORT STATUS: Signed EXAMINATION: PA and lateral views of the chest. COMPARISON: Chest 2 views 11/16/2016 CLINICAL HISTORY: CHF DISCUSSION: Lines/tubes: None. Lungs : Lungs are well-inflated. Right lower lobe opacity, likely reflecting compressive atelectasis. The left lung is clear. Pleura: Interval development of moderate right-sided pleural effusion Heart and mediastinum : Enlarged cardiac silhouette. Central pulmonary venous congestion. Bones and soft tissues: No acute bony abnormalities. Degenerative changes in the thoracic spine IMPRESSION: 1. Enlarged cardiac silhouette, central pulmonary venous congestion and interval development of moderate right pleural effusion. Findings likely represent decompensated CHF. Signed by: Dr. Dickson Pollard M.D. on 03/01/2017 4:13 PM Dictated By: DICKSON POLLARD MD 161 Transcribed By: VALERIE on 03/01/17 1613 COPY TO: POLA KARIMI MD CT BRAIN WO [place] [address] Patient Name: ARLETTE SEXTON MR #: [id number] : 1945 Age/Sex: 72/F Req # : [id number] Adm Physician: JORGE NIETO MD Ordered by: POLA KARIMI MD Report #: [id number] Location: MED/SURG Room/Bed: 100 _ Procedure: [id number] CT/CT BRAIN WO Exam Date: 02/27/17 Exam Time: 1753 REPORT STATUS: Signed History:Fall Comparison studies:None Technique: Axial images were obtained from the skull base to the vertex. Coronal and sagittal images reconstructed from the axial data. Intravenous contrast: None Findings: Scalp/skull: No abnormalities. Extra-axial spaces: No masses. No fluid collections. Brain sulci: Mildly prominent. Ventricles: Mild compensatory dilatation. No hydrocephalus. Parenchyma: No abnormal densities. No masses, hemorrhage, acute or chronic cortical vascular insults. Sellar/suprasellar region: No abnormalities. Craniocervical junction: Patent foramen magnum. No Chiari one malformation. Incidental findings: Atherosclerotic calcifications in the carotid siphons . Impression: No acute abnormalities. Mild generalized volume loss Signed by: Dr. Uche Rodney M.D. on 02/27/2017 6:19 PM Dictated By: UCHE AMOS MD, MD 18 Transcribed By: VALERIE on 02/27/171818 COPY TO: POLA KARIMI MD CHEST XRAY POST PROCEDURE [place] [address] Patient Name: ARLETTE SEXTON MR #: [id number] : 1945 Age/Sex: 72/F Req #: [id number] Adm Physician: JORGE NIETO MD Ordered by: MARCO A ANDERSON MD Report #: [id number] Location: [facility] Room/Bed: [place] [address] _ Procedure: DX/CHEST XRAY POST PROCEDURE Exam Date: Exam Time: REPORT STATUS: Signed PROCEDURE: CHEST XRAY POST PROCEDURE COMPARISON: Chest x-ray 02/23/2017. CT chest without contrast 02/24/2017. INDICATIONS: POST THORACENTISIS FINDINGS: LUNGS: Improved right basilar atelectasis. Calcified granulomas in the right midlung. Residual pulmonary venous congestion. PLEURA: Residual tiny right pleural effusion status post thoracentesis. No pneumothorax. HEART T MEDIASTINUM: Unchanged moderate cardiomegaly. Atherosclerotic calcifications in the tortuous aorta. Aortic valve stent. BONES T SOFT TISSUES: No acute findings. Bilateral axillary surgical clips. CONCLUSION: Status post right thoracentesis. No pneumothorax. Dictated by: Evens Flynn M.D. on 02/24/2017 at 15:51 Electronically approved by: Evens Flynn M.D. on 02/24/2017 at 15:51 Dictated By: EVENS FLYNN MD 50 Transcribed By: AUSTEN on 02/24/17 155 COPY TO: MARCO A ANDERSON MD IR CONSULT [place] [address] Patient Name: ARLETTE SEXTON MR #: [id number] : 1945 Age/Sex: 72/F Req #: [id number] Adm Physician: JORGE NIETO MD Ordered by: OJRGE NIETO MD Report #: [id number] Location: [facility] Room/Bed: [place] [address] Procedure : [id number] DX/IR CONSULT Exam Date: Exam Time: REPORT STATUS: Signed PROCEDURE: ULTRASOUND GUIDED THORACENTESIS COMPARISON: Chest CT, 02/24/17. INDICATIONS: Pleural Effusion FINDINGS : After informed consent was obtained, the patient was placed in the sitting position and preliminary ultrasound of the posterior chest identified a safe route into the right pleural effusion. A multimedia authoring specialist out was taken to confirm patient and procedure. The overlying skin was prepped and draped in usual sterile fashion. Lidocaine 1% was used for local anesthesia. Under ultrasound guidance, a 5 Tunisian centesis catheter-needle was advanced into the pleural fluid and 840 cc clear yellow fluid were aspirated. The patient tolerated the procedure well and there were no immediate post-procedural complications. Fluid was sent to the laboratory as requested by referring physician. A post-thoracentesis chest radiograph will be obtained. CONCLUSION: Uncomplicated ultrasound-guided right thoracentesis with removal of 840 cc clear yellow fluid. Dictated by: Marco A Anderson M.D. on 02/24/2017 at 16:40 Electronically approved by: Marco A Anderson M.D. on 02/24/2017 at 16:40 Dictated By: MARCO A ANDERSON MD 1640 Transcribed By: AUSTEN on 02/24/17 1640 COPY TO: JORGE NIETO MD CT CHEST WO [place] [address] Patient Name: ARLETTE SEXTON MR #: [id number] : 1945 Age/Sex: 72/F Req #: [id number] [facility] Physician: JORGE NIETO MD Ordered by: JORGE NIETO MD Report #: [id number] Location: [facility] Room/Bed: [place] [address] _ Procedure: [id number] CT/CT CHEST WO Exam Date: 02/24/17 Exam Time: 1120 REPORT STATUS: Signed PROCEDURE: CT CHEST WITHOUT CONTRAST CT scan of the chest WITHOUT intravenous contrast, using standard protocol. TECHNIQUE: The chest was scanned utilizing a multidetector helical scanner from the apex to the level of the adrenal glands. No IV contrast was administered per physician request. Coronal and sagittal multiplanar reformations were obtained. COMPARISON: CT abdomen pelvis 11/16/2016. Chest x-ray 02/23/2013 INDICATIONS: ABNORMAL CHEST X-RAY, CONGESTIVE HEART FAILURE FINDINGS: Lines/tubes: None. Lungs and Airways: Right lower lobe compressive atelectasis. Scattered calcified granulomas in the right lower lobe. Interlobular septal thickening with associated mild groundglass opacity related to fluid overload. Fibrotic changes in the anterior right lung extending to the apex, likely from previous radiation therapy. Pleura: Increasing moderate right pleural effusion. Heart and mediastinum: The thyroid gland is normal. No significant mediastinal, hilar or axillary lymphadenopathy is seen. 0.9 cm paratracheal lymph node (series 2 image 41). 0.9 cm precarinal lymph node (series 2 image 49). Moderate to severe cardiomegaly. Severe atherosclerotic calcifications of the aorta. Aortic valve stent graft. Severe tri-vessel coronary artery calcifications. No pericardial effusion. Soft tissues: Right breast reconstruction. Left breast implant. Abdomen: Liver and adrenal glands are unremarkable. Bilateral renal cysts are partially visualized. Calcified granulomas in the spleen is unchanged. Bones: Degenerative changes in the thoracic spine with mild anterior wedging of T8 vertebral body. IMPRESSION: 1. Enlarging moderate right pleural effusion with associated right lower lobe compressive atelectasis. 2. Interstitial edema. Dictated by: Evens Flynn M.D. on 02/24/2017 at 12:43 Electronically approved by: Evens Flynn M.D. on 02/24/2017 at 12:43 Dictated By: EVENS FLYNN MD 1243 Transcribed By: AUSTEN on 02/24/17 1243 COPY TO: JORGE NIETO MD THORACENTESIS/US GUIDED [place] [address] Patient Name: ARLETTE SEXTON MR #: [id number] : 1945 Age/Sex: 72/F [facility] #: [id number] [facility] Physician: JORGE NIETO MD Ordered by: JORGE NIETO MD Report #: [id number] Location: [facility] Room/Bed: [place] [address] Procedure : [id number] US/THORACENTESIS/US GUIDED Exam Date: 02/24/17 Exam Time: 1440 REPORT STATUS: Signed PROCEDURE: ULTRASOUND GUIDED THORACENTESIS COMPARISON: Chest CT, 02/24/17. INDICATIONS: Pleural Effusion FINDINGS: After informed consent was obtained, the patient was placed in the sitting position and preliminary ultrasound of the posterior chest identified a safe route into the right pleural effusion. A multimedia authoring specialist out was taken to confirm patient and procedure. The overlying skin was prepped and draped in usual sterile fashion. Lidocaine 1% was used for local anesthesia. Under ultrasound guidance, a 5 Tunisian centesis catheter- needle was advanced into the pleural fluid and 840 cc clear yellow fluid were aspirated. The patient tolerated the procedure well and there were no immediate post-procedural complications. Fluid was sent to the laboratory as requested by referring physician. A post-thoracentesis chest radiograph will be obtained. CONCLUSION: Uncomplicated ultrasound-guided right thoracentesis with removal of 840 cc clear yellow fluid. Dictated by: Marco A Anderson M.D. on 02/24/2017 at 16:40 Electronically approved by: Marco A Anderson M.D. on 02/24/2017 at 16:40 Dictated By: MARCO A ANDERSON MD 1640 COPY TO: JORGE NIETO MD CHEST [facility] (PORTABLE) [place] [id number] [place] [address] Patient Name: ARLETTE SEXTON MR #: [id number] : 1945 Age/Sex: 72/F Req #: [id number] Adm Physician: Ordered by: MARY LIN MD Report #: [id number] Location: ER Room/Bed: Procedure: [id number] DX/CHEST SINGLE (PORTABLE) Exam Date: 02/23/17 Exam Time: 08 REPORT STATUS: Signed PROCEDURE: A single AP view of the chest. COMPARISON: Chest 2 views 11/16/2016. INDICATIONS: SHORTNESS OF BREATH DURING DIALYSIS FINDINGS: Lines/ tubes: None. Lungs: Airspace opacity in the right lung base. The left lung is clear. Pleura: Small right pleural effusion. No pneumothorax. Heart and mediastinum: The heart and the mediastinum are unremarkable. Bones: No acute bony abnormality. Degenerative changes of the thoracic spine. IMPRESSION: Airspace opacity in the right lung base may represent atelectasis or developing pneumonia. Right pleural effusion. Dictated by: Abbi Hoffmann M.D. on 02/23/2017 at 8:46 Electronically approved by: Abbi Hoffmann M.D. on 02/23/2017 at 8:46 Dictated By : ABBI HOFFMANN MD 5 Transcribed By: AUSTEN on 02/23/17845 COPY TO: MARY LIN MD
[2017-08-27 11:24] LABS: INR 1.2; PROTHROMBIN TIME 14.3 seconds (11.9-14.5)
--- NOTE | 2017-08-27 14:33 | Operative Report ---
DATE OF PROCEDURE: August 27, 2017 REFERRING PHYSICIAN: Jon Mcduffie MD PROCEDURE: Esophagogastroduodenoscopy with esophageal dilatation and biopsies. INDICATIONS FOR PROCEDURE: Dysphagia, upper abdominal pain, nausea and vomiting. MEDICATION: The patient was done under MAC. Please see anesthesiologist's note. PROCEDURE: With the patient in the left lateral decubitus position, the flexible fiberoptic Olympus gastroscope was introduced into the esophagus under direct visualization without any difficulty. There was some patchy erythema noted in the distal esophagus. There was a mild stricture noted at the GE junction that was dilated to size 50-Croatian Roberts. The scope was then advanced with ease into the stomach, traversing a small sliding hiatal hernia. The mucosa overlying the antrum and the body revealed some diffuse erythema and moderate edema, and biopsies were obtained and sent to stain for H. pylori. The pylorus appeared to be of normal contour and shape. It was intubated with ease, and the scope was advanced all the way to the 2nd portion of the duodenum. An approximately 1.2-cm sessile polypoid lesion was noted in the proximal 2nd portion, and that was biopsied. The mucosa overlying the duodenal bulb grossly appeared to be within normal limits. The scope was then withdrawn back into the stomach and retroflexed. The mucosa overlying the fundus and the cardia appeared to be within normal limits. The scope was then straightened out. It was subsequently withdrawn. The patient tolerated the procedure well. IMPRESSION 1. Distal esophagitis. 2. 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 3. Small sliding hiatal hernia. 4. Gastritis, biopsied. Biopsies sent to stain for Helicobacter pylori. 5. An approximately 1.2-cm sessile polypoid lesion in proximal 2nd portion, biopsied. PLAN: Follow up histology. Continue Protonix 40 mg 1 p.o. q.a.m. a.c. Add Carafate 1 g p.o. a.c. t.i.d. and nightly. Job#: [id number] cc:JON MCDUFFIE MD
== END | disposition home or self-care (01) ==
LOC: OR 10:44
PROVIDERS: ATTEND Internal Medicine Gastroenterology
DX: K22.2 Esophageal obstruction (principal); K31.7 Polyp of stomach and duodenum; K29.50 Unspecified chronic gastritis without bleeding; K20.9 Esophagitis, unspecified; K44.9 Diaphragmatic hernia without obstruction or gangrene; K74.60 Unspecified cirrhosis of liver; D64.9 Anemia, unspecified; J44.9 Chronic obstructive pulmonary disease, unspecified; I49.3 Ventricular premature depolarization; I48.91 Unspecified atrial fibrillation; I13.2 Hypertensive heart and chronic kidney disease with heart failure and with stage 5 chronic kidney disease, or end stage renal disease; N18.6 End stage renal disease; I50.9 Heart failure, unspecified; Z01.810 Encounter for preprocedural cardiovascular examination; Z01.812 Encounter for preprocedural laboratory examination; Z79.82 Long term (current) use of aspirin; Z99.2 Dependence on renal dialysis
CPT/HCPCS: 36415 ×2; 43239; 43450; 84132; 85025; 85610; 88305; 88312; 93005; J2001; J7040